=== PATIENT | female | born 1955 | race Caucasian/White ===

== ENCOUNTER 2018-11-10 16:31 | Inpatient (IN) | payer MEDICARE ==
[~2018-11-10] VITALS: Ht 157.5 cm; Wt 82.2 kg
[~2018-11-10 16:31] MED LIST: AC325T PO; ACHD5005 PO; BSC10SU PR; BUPR-45 PO; CARV12.52 PO; CHOL2000 PO; CHOL200018 PO; CYAN50003 PO; CYCL10TA9 PO; DIAZ10TA PO; DIGESTIVE ADVANTAGE PO; DIPH25TA82 PO; ENXP40I.4 SC; ESZO3TAB30 PO; FENO134C PO; FERR-57 PO; FLUT16SP22 NS; GFN600TCR PO; IBP800T PO; IRON1TAB94 PO; IRON45TA2 PO; LACT10SO63 PO; LEVO150T54 PO; LRT10T PO; LVT.025T PO; LVT.112T PO; MAGN400T6 PO; MENT71OI TP; METF1000 PO; METH4TAB PO; METO10TA3 PO; MNTL10T PO; NST15PW TOP; OMEP20CA12 PO; OMG1KC PO; ONDN4T PO; OXAP600T2 PO; OXYC-188 PO; OXYC10TA63 PO; PNT40TEC PO; PRAS1TAB2 PO; ROPI3TAB2 PO; RT-COMBINH IH; SENN1TAB76 PO; SPIR25TA3 PO; SPIR50TA27 PO; TR5C15 TOP; TRAM50TA2 PO; TRAZ150T42 PO; VITA80006 PO; VITAMIN A PO; VITAMIN B-12 PO; [UNRECOGNIZED DRUG - OTHER] PO
[2018-11-10] MEDS ORDERED: methylPREDNISolone 125 MG (Solu-MEDROL) VIAL IVP ONE (17:00)
[2018-11-10] MEDS ORDERED: NS IV 1000 ML 1,000 ML IV ONE (17:00)
[2018-11-10] MEDS ORDERED: ONDANSETRON 4 MG/2 ML (SDV) Z0FRAN IVP ONE (17:00)
[2018-11-10] MEDS ORDERED: ACETAMINOPHEN 500 MG TAB (TYLENOL) PO ONE (17:00)
[2018-11-10 17:27] LABS: BASOPHILS % (AUTO) 0 % (0-10); EOSINOPHILS % (AUTO) 0 % (0-10); HEMATOCRIT 43 % (35-52); HEMOGLOBIN 14.2 G/DL (11.5-16.0); LYMPHOCYTES # (AUTO) 0.7 X 10^3 (1.0-4.0); LYMPHOCYTES % (AUTO) 8 % (12-44); MEAN CORPUSCULAR HEMOGLOBIN 28 PG (25-34); MEAN CORPUSCULAR HGB CONC 33 G/DL (32-36); MEAN CORPUSCULAR VOLUME 85 FL (80-99); MONOCYTES # (AUTO) 0.2 X 10^3 (0.0-1.0); MONOCYTES % (AUTO) 2 % (0-12); NEUTROPHILS # (AUTO) 8.2 X 10^3 (1.8-7.8); NEUTROPHILS % (AUTO) 90 % (42-75); PLATELET COUNT 318 10^3/uL (130-400); RED CELL DISTRIBUTION WIDTH 13.7 % (10.0-14.5); WHITE BLOOD COUNT 9.2 10^3/uL (4.3-11.0)
[2018-11-10 17:28] LABS: BILIRUBIN,URINE NEGATIVE (NEGATIVE); CLARITY,URINE VERY CLOUDY; COLOR,URINE YELLOW; GLUCOSE, URINE (UA) NEGATIVE (NEGATIVE); KETONES,URINE NEGATIVE (NEGATIVE); LEUKOCYTE ESTERASE ,URINE 3+ (NEGATIVE); NITRITE,URINE NEGATIVE (NEGATIVE); PH,URINE 7 (5-9); PROTEIN,URINE 2+ (NEGATIVE); UROBILINOGEN,URINE 1 MG/DL (NORMAL)
[2018-11-10 17:38] LABS: BACTERIA,URINE MODERATE /HPF; WBC,URINE TNTC /HPF
[2018-11-10 17:39] LABS: INR 0.9 (0.8-1.4); PROTHROMBIN TIME PATIENT 12.8 SEC (12.2-14.7)
--- NOTE | 2018-11-10 17:44 | NUR ---
Pt's daughter reports texting Summer at Dr. Merino's. Summer would like pt tested for vector borne-illness and given a steroid pulse. Dr. Ferraro notified.
[2018-11-10 17:47] LABS: ALANINE AMINOTRANSFERASE 24 U/L (0-55); ALBUMIN 4.3 GM/DL (3.2-4.5); ALKALINE PHOSPHATASE 43 U/L (40-136); BILIRUBIN,TOTAL 0.7 MG/DL (0.1-1.0); BUN/CREATININE RATIO 21; CALCIUM 10.1 MG/DL (8.5-10.1); CARBON DIOXIDE 26 MMOL/L (21-32); CHLORIDE 102 MMOL/L (98-107); CREATININE SERUM 0.84 MG/DL (0.60-1.30); GFR ESTIMATED > 60; GLUCOSE 101 MG/DL (70-105); POTASSIUM 3.9 MMOL/L (3.6-5.0); SODIUM 139 MMOL/L (135-145); TOTAL PROTEIN 6.8 GM/DL (6.4-8.2)
[2018-11-10 17:52] LABS: BAND NEUTROPHILS 8 %; BASOPHILS % (MANUAL) 0 %; EOSINOPHILS % (MANUAL) 0 %; LYMPHOCYTES % (MANUAL) 7 %; MONOCYTES % (MANUAL) 1 %; NEUTROPHILS % (MANUAL) 84 %
[2018-11-10 17:53] LABS: RBC MORPH NORMAL
--- NOTE | 2018-11-10 17:53 | Diagnostic Imaging Report ---
INDICATION: Shaking and numbness. TIME OF EXAM: 5:15 p.m. COMPARISON: Prior chest of 1221/2013. EXAMINATION: Single view of the chest was obtained. FINDINGS: There is right convexity thoracic scoliotic curvature. Heart size is stable. Lungs are clear. The pulmonary vascularity is normal. No infiltrate, effusion or pneumothorax is seen. IMPRESSION: No acute cardiopulmonary process is detected. Dictated by: Dictated on workstation # [id number]
[2018-11-10] MEDS ORDERED: LEVOFLOXACIN 750 MG/150 ML IV 150 ML IV ONE (18:30)
--- NOTE | 2018-11-10 18:50 | ED General ---
General Chief Complaint: Fever-Adult/Adol Stated Complaint: SHAKING,FINGERS NUMB, Nursing Triage Note: Pt brought to ED in wheelchair by daughter. Daughter reports getting a phone call from pt at approximately 1535 and pt was tearful and shaking. Daughter picked pt up and reported was disoriented. Pt c/o nausea, back pain, dysuria. Pt had 103.1 temperature at assessment. Nursing Sepsis Screen: Possible Severe Sepsis Risk Source of Information: Patient, Family Exam Limitations: No Limitations History of Present Illness Date Seen by Provider: Nov 10, 2018 Time Seen by Provider: 16:42 Initial Comments This 63-year-old woman is brought to the emergency room by her daughter with complaints of shakiness, generalized numbness in her extremities, and altered mentation. She is found to have a temperature of 103.1 on arrival. Patient has multiple health history problems including history of Guillain-Maynard, asthma, hypothyroidism, and adrenal insufficiency. Allergies and Home Medications Allergies Coded Allergies: diethyltoluamide (Unverified Allergy, Intermediate, RASH, HIVES, RESPIRATORY, 09/14/10) RESCUE INHALER GOT PT TO HOSPITAL, BUT STATES IT WAS LIKE A BAD ASTHMA ATTACK Form.,Urea Cycle Disord (Unverified Allergy, Mild, RASH, 09/14/10) adhesive tape (Unverified Allergy, Mild, RASH, 09/14/10) erythromycin base (Unverified Allergy, Mild, RASH, 09/14/10) tetracycline (Unverified Allergy, Mild, 04/29/14) cefaclor (Verified Allergy, Unknown, 02/28/09) iodine (Verified Allergy, Unknown, 02/28/09) Uncoded Allergies: METAL (Adverse Reaction, Mild, RASH, 09/14/10) Home Medications Bupropion Hcl 150 Mg Tablet.sa, 150 MG PO DAILY, (Reported) Carvedilol 12.5 Mg Tablet, 25 MG PO BID, (Reported) Cholecalciferol (Vitamin D3) 2,000 Unit Capsule, 2,500 UNITS PO DAILY, (Reported) Cyanocobalamin (Vitamin B-12) 5,000 Mcg Tab.rapdis, 1,000 MCG PO DAILY, (Reported) Cyclobenzaprine Hcl 10 Mg Tablet, 10 MG PO HS PRN, (Reported) Diazepam 10 Mg Tablet, 10 MG PO HS, (Reported) Fenofibrate,Micronized 134 Mg Capsule, 134 MG PO DAILY, (Reported) Fluticasone Propionate 16 Gm Naspr, 1 SPRAY NS DAILY PRN, (Reported) Hydrocodone Bit/Acetaminophen 1 Each Tablet, 1-2 EACH PO Q4H PRN, (Reported) Ibuprofen 800 Mg Tab, 800 MG PO BID, (Reported) Ipratropium/Albuterol Sulfate 14.7 Gm Aer.w.adap, 2 PUFF IH Q6HR PRN, (Reported) Iron &Iron Asp Gly/Fa/Mv,Min38 1 Each Tablet, 65 MG PO DAILY, (Reported) Levothyroxine Sodium 112 Mcg Tablet, 112 MG PO DAILY, (Reported) Loratadine 10 Mg Tab, 10 MG PO DAILY, (Reported) Methylprednisolone 4 Mg Tab.ds.pk, 4 MG PO DAILY, (Reported) Montelukast Sodium 10 Mg Tablet, 10 MG PO DAILY, (Reported) Omeprazole 20 Mg Capsule.dr, 20 MG PO DAILY, (Reported) Ondansetron Hcl 4 Mg Tab, 4 MG PO Q6H PRN, (Reported) Oxycodone Hcl/Acetaminophen 1 Each Tablet, 1-2 TAB PO Q6H PRN, (Reported) Prasterone (Dhea)/Calcium Carb 1 Each Tablet, 50 MG PO DAILY, (Reported) Ropinirole Hcl 3 Mg Tablet, 3 MG PO HS, (Reported) Spironolactone 25 Mg Tablet, 25 MG PO DAILY, (Reported) Tramadol Hcl 50 Mg Tablet, 100 MG PO BID, (Reported) Trazodone Hcl 150 Mg Tablet, 150 MG PO HS, (Reported) Vitamin A 8,000 Unit Capsule, 8,000 UNIT PO DAILY, (Reported) [Digestive Advantage] , 1 TAB PO DAILY, (Reported) [quinacrine hcl] , 100 MG PO DAILY, (Reported) Past Yarwcph-Tahfcr-Hqnflm Hx Patient Social History Alcohol Use: Denies Use Recreational Drug Use: No Smoking Status: Former Smoker Type Used: Cigarettes 2nd Hand Smoke Exposure: No Recent Foreign Travel: No Contact w/Someone Who Travel: No Recent Infectious Disease Expo: No Recent Hopitalizations: Yes Immunizations Up To Date Date of Pneumonia Vaccine: Jan 24, 2009 Date of Influenza Vaccine: Feb 19, 2010 Seasonal Allergies Seasonal Allergies: No Past Medical History Surgeries: Yes (carpal tunnel, trigger finger, r torn meniscus, plantar fasciotomy, ) Respiratory: Yes Asthma Cardiac: Yes Neurological: Yes (guillian barre) Reproductive Disorders: No Female Reproductive Disorders: Denies Sexually Transmitted Disease: No Gastrointestinal: Yes Gastroesophageal Reflux, Gall Bladder Disease, Irritable Bowel Musculoskeletal: Yes (osteo and rheumatoid) Arthritis, Fibromyalgia, Rheumatoid Arthritis Endocrine: Yes (adrenal fatigue, pituitary dysfunction) Hypothyroidsim Loss of Vision: Denies Hearing Impairment: Denies Cancer: No Psychosocial: No Integumentary: Yes Eczema Blood Disorders: No Physical Exam-Suspected Sepsis Physical Exam Vital Signs Vital Signs - First Documented 11/10/18 16:34 Temp 103.1 Pulse 95 Resp 13 B/P (MAP) 115/61 (79) Pulse Ox 94 O2 Delivery Room Air Capillary Refill : Less Than 3 Seconds Blood Pressure Mean: 79 Height, Weight, BMI Height: 5'2.00" Weight: 180lbs. 4.0oz. 81.273969ga; BMI Method:Stated Focused Exam Lactate Level 11/10/18 16:59: Lactic Acid Level 2.45*H Lactic Acid Level Laboratory Tests Test 11/10/18 16:59 Lactic Acid Level 2.45 MMOL/L (0.50-2.00) *H Progress/Results/Core Measures Suspected Sepsis Recent Fever Within 48 Hours: Yes Infection Criteria Present: Suspected New Infection New/Unexplained Altered Menta: Yes Sepsis Screen: Possible Severe Sepsis Risk SIRS Temperature:103.1 Pulse: 95 Respiratory Rate: 13 Laboratory Tests 11/10/18 16:59: White Blood Count 9.2 Blood Pressure 115 /61 Mean: 79 11/10/18 16:59: Lactic Acid Level 2.45*H Laboratory Tests 11/10/18 16:59: Creatinine 0.84, INR Comment 0.9, Platelet Count 318, Total Bilirubin 0.7 Results/Orders Lab Results Laboratory Tests Test 11/10/18 16:35 11/10/18 16:59 Range/Units Urine Color YELLOW Urine Clarity VERY CLOUDY H Urine pH 7 5-9 Urine Specific [place] 1.010 L 1.016-1.022 Urine Protein 2+ H NEGATIVE Urine Glucose (UA) NEGATIVE NEGATIVE Urine Ketones NEGATIVE NEGATIVE Urine Nitrite NEGATIVE NEGATIVE Urine Bilirubin NEGATIVE NEGATIVE Urine Urobilinogen 1 NORMAL MG/DL Urine Leukocyte Esterase 3+ H NEGATIVE Urine RBC (Auto) 5+ H NEGATIVE Urine RBC 10-25 H /HPF Urine WBC TNTC H /HPF Urine Squamous Epithelial Cells NONE /HPF Urine Crystals NONE /LPF Urine Bacteria MODERATE H /HPF Urine Casts NONE /LPF Urine Mucus NEGATIVE /LPF Urine Culture Indicated CULTURE PENDING White Blood Count 9.2 4.3-11.0 10^3/uL Red Blood Count 5.10 4.35-5.85 10^6/uL Hemoglobin 14.2 11.5-16.0 G/DL Hematocrit 43 35-52 % Mean Corpuscular Volume 85 80-99 FL Mean Corpuscular Hemoglobin 28 25-34 PG Mean Corpuscular Hemoglobin Concent 33 32-36 G/DL Red Cell Distribution Width 13.7 10.0-14.5 % Platelet Count 318 130-400 10^3/uL Mean Platelet Volume 10.0 7.4-10.4 FL Neutrophils (%) (Auto) 90 H 42-75 % Lymphocytes (%) (Auto) 8 L 12-44 % Monocytes (%) (Auto) 2 0-12 % Eosinophils (%) (Auto) 0 0-10 % Basophils (%) (Auto) 0 0-10 % Neutrophils # (Auto) 8.2 H 1.8-7.8 X 10^3 Lymphocytes # (Auto) 0.7 L 1.0-4.0 X 10^3 Monocytes # (Auto) 0.2 0.0-1.0 X 10^3 Eosinophils # (Auto) 0.0 0.0-0.3 10^3/uL Basophils # (Auto) 0.0 0.0-0.1 10^3/uL Neutrophils % (Manual) 84 % Lymphocytes % (Manual) 7 % Monocytes % (Manual) 1 % Eosinophils % (Manual) 0 % Basophils % (Manual) 0 % Band Neutrophils 8 % Blood Morphology Comment NORMAL Prothrombin Time 12.8 12.2-14.7 SEC INR Comment 0.9 0.8-1.4 Activated Partial Thromboplast Time 26 24-35 SEC Sodium Level 139 135-145 MMOL/L Potassium Level 3.9 3.6-5.0 MMOL/L Chloride Level 102 98-107 MMOL/L Carbon Dioxide Level 26 21-32 MMOL/L Anion Gap 11 5-14 MMOL/L Blood Urea Nitrogen 18 7-18 MG/DL Creatinine 0.84 0.60-1.30 MG/DL Estimat Glomerular Filtration Rate > 60 BUN/Creatinine Ratio 21 Glucose Level 101 70-105 MG/DL Lactic Acid Level 2.45 *H 0.50-2.00 MMOL/L Calcium Level 10.1 8.5-10.1 MG/DL Corrected Calcium 9.9 8.5-10.1 MG/DL Total Bilirubin 0.7 0.1-1.0 MG/DL Aspartate Amino Transf (AST/SGOT) 29 5-34 U/L Alanine Aminotransferase (ALT/SGPT) 24 0-55 U/L Alkaline Phosphatase 43 40-136 U/L Total Protein 6.8 6.4-8.2 GM/DL Albumin 4.3 3.2-4.5 GM/DL My Orders Orders - RAKAN GREEN MD Methylprednisolone Sod Succ (Solu-Medrol (11/10/18 17:00) Acetaminophen Tablet (Tylenol Tablet) (11/10/18 17:00) Ns Iv 1000 Ml (Sodium Chloride 0.9%) (11/10/18 17:00) Ondansetron Injection (Zofran Injectio (11/10/18 17:00) Cbc With Automated Diff (11/10/18 17:00) Comprehensive Metabolic Panel (11/10/18 17:00) Blood Culture (11/10/18 17:00) Sputum Culture (11/10/18 17:00) Urinalysis (11/10/18 17:00) Urine Culture (11/10/18 17:00) Protime With Inr (11/10/18 17:00) Partial Thromboplastin Time (11/10/18 17:00) Chest 1 View, Ap/Pa Only (11/10/18 17:00) Ed Iv/Invasive Line Start (11/10/18 17:00) Ed Iv/Invasive Line Start (11/10/18 17:00) Vital Signs Adult Sepsis Patie Q15M (11/10/18 17:00) O2 (11/10/18 17:00) Remove Rings In Anticipation O (11/10/18 17:00) Lactic Acid Analyzer (11/10/18 17:00) Manual Differential (11/10/18 16:59) Levofloxacin 750 Mg/150 Ml Iv (Levaquin (11/10/18 18:30) Medications Given in ED Current Medications Medications Dose Ordered Sig/Niyah Route Start Time Stop Time Status Last Admin Dose Admin Acetaminophen 1,000 mg ONCE ONCE PO 11/10/18 17:00 11/10/18 17:03 DC 11/10/18 17:24 1,000 MG Methylprednisolone Sodium Succinate 125 mg ONCE ONCE IVP 11/10/18 17:00 11/10/18 17:03 DC 11/10/18 17:22 125 MG Ondansetron HCl 8 mg ONCE ONCE IVP 11/10/18 17:00 11/10/18 17:03 DC 11/10/18 17:20 8 MG Sodium Chloride 1,000 ml @ 0 mls/hr Q0M ONCE IV 11/10/18 17:00 11/10/18 17:03 DC 11/10/18 17:21 1,000 MLS/HR Vital Signs/I&O 11/10/18 16:34 Temp 103.1 Pulse 95 Resp 13 B/P (MAP) 115/61 (79) Pulse Ox 94 O2 Delivery Room Air Capillary Refill : Less Than 3 Seconds Blood Pressure Mean: 79 Diagnostic Imaging Diagonstic Imaging: Xray Plain Films/CT/US/NM/MRI: chest Comments NAME: BÁRBARA BRENNAN MED REC#: [id number] PT STATUS: REG ER : 1955 PHYSICIAN: RAKAN GREEN MD ADMIT DATE: 11/10/18/ER Draft Date of Exam:11/10/18 CHEST 1 VIEW, AP/PA ONLY INDICATION: Shaking and numbness. TIME OF EXAM: 5:15 p.m. COMPARISON: Prior chest of 122/2013. EXAMINATION: Single view of the chest was obtained. FINDINGS: There is right convexity thoracic scoliotic curvature. Heart size is stable. Lungs are clear. The pulmonary vascularity is normal. No infiltrate, effusion or pneumothorax is seen. IMPRESSION: No acute cardiopulmonary process is detected. Dictated on workstation # [id number] Dict: 11/10/181739 Trans: 11/10/181751 [facility] [id number] Interpreted by: NAT FINNEGAN MD Departure Communication (Admissions) Time/Spoke to Admitting Phy: 18:26 Dr. Catherine Impression Primary Impression: Sepsis Qualified Codes: A41.9 - Sepsis, unspecified organism Additional Impression: Urinary tract infection Qualified Codes: N39.0 - Urinary tract infection, site not specified Disposition: ADMITTED INPATIENT Condition: Improved Departure-Patient Inst. Referrals: DEVON PHAN DO (PCP/Family) Primary Care Physician RAKAN GREEN MD Nov 10, 2018 18:50
--- NOTE | 2018-11-10 19:10 | NUR ---
report given to NAYELI Kilgore
--- NOTE | 2018-11-10 19:30 | NUR ---
"BÁRBARA BRENNAN admitted to room 409-1, with an admitting diagnosis of UTI | SEPSIS, on 11/10/18 from ED via , accompanied by ED STAFF.BÁRBARA BRENNAN introduced to surroundings, call light, bed controls, phone, TV, temperature control, lights, meal times, smoking policy, visitor policy, side rail policy, bathrooms and showers. Patient Rights given to patient in the handbook.BÁRBARA BRENNAN verbalizes understanding that [facility] is not responsible for the loss or damage to any personal effects or valuables that are kept in the patients posession during their hospitalization."
[2018-11-10 19:38] VITALS: BP 111/73
[2018-11-10 19:45] VITALS: BP 111/73
[2018-11-10] MEDS ORDERED: ONDANSETRON 4 MG/2 ML (SDV) Z0FRAN IV PRN (20:00)
[2018-11-10] MEDS ORDERED: IBUPROFEN 600 MG (MOTRIN) TAB PO PRN (20:15)
[2018-11-10] MEDS ORDERED: ACETAMINOPHEN 500 MG TAB (TYLENOL) PO PRN (20:15)
[2018-11-10] MEDS: NS IV 1000 ML 1,000 ML IV SCH (21:16)
[2018-11-10] MEDS ORDERED: GABAPENTIN 300 MG (NEURONTIN) CAP PO ONE (23:15)
[2018-11-10] MEDS ORDERED: GABAPENTIN 300 MG (NEURONTIN) CAP ONE (23:23)
[2018-11-10 23:51] VITALS: BP 121/73
[2018-11-11 03:46] VITALS: BP 123/79
[2018-11-11] MEDS: NS IV 1000 ML 1,000 ML IV SCH ×3 (05:47→23:27)
[2018-11-11 06:25] LABS: BASOPHILS % (AUTO) 0 % (0-10); EOSINOPHILS % (AUTO) 0 % (0-10); HEMATOCRIT 39 % (35-52); HEMOGLOBIN 12.5 G/DL (11.5-16.0); LYMPHOCYTES # (AUTO) 0.8 X 10^3 (1.0-4.0); LYMPHOCYTES % (AUTO) 6 % (12-44); MEAN CORPUSCULAR HEMOGLOBIN 28 PG (25-34); MEAN CORPUSCULAR HGB CONC 32 G/DL (32-36); MEAN CORPUSCULAR VOLUME 86 FL (80-99); MEAN PLATELET VOLUME 10.2 FL (7.4-10.4); MONOCYTES # (AUTO) 0.8 X 10^3 (0.0-1.0); MONOCYTES % (AUTO) 5 % (0-12); NEUTROPHILS # (AUTO) 13.1 X 10^3 (1.8-7.8); NEUTROPHILS % (AUTO) 89 % (42-75); PLATELET COUNT 255 10^3/uL (130-400); RED CELL DISTRIBUTION WIDTH 13.2 % (10.0-14.5); WHITE BLOOD COUNT 14.7 10^3/uL (4.3-11.0)
[2018-11-11 06:44] LABS: ALANINE AMINOTRANSFERASE 24 U/L (0-55); ALBUMIN 3.6 GM/DL (3.2-4.5); ALKALINE PHOSPHATASE 37 U/L (40-136); BILIRUBIN,TOTAL 0.3 MG/DL (0.1-1.0); BUN/CREATININE RATIO 18; CALCIUM 9.1 MG/DL (8.5-10.1); CARBON DIOXIDE 24 MMOL/L (21-32); CHLORIDE 108 MMOL/L (98-107); CREATININE SERUM 0.72 MG/DL (0.60-1.30); GFR ESTIMATED > 60; GLUCOSE 139 MG/DL (70-105); SODIUM 142 MMOL/L (135-145); TOTAL PROTEIN 5.7 GM/DL (6.4-8.2)
[2018-11-11] MEDS ORDERED: CHOL200012 PO (07:43)
[2018-11-11] MEDS ORDERED: ROPI3TAB4 PO (07:43)
[2018-11-11] MEDS ORDERED: LORA10TA7 PO (07:43)
[2018-11-11] MEDS ORDERED: SPIR25TA PO (07:43)
[2018-11-11] MEDS ORDERED: FENO145T37 PO (07:43)
[2018-11-11] MEDS ORDERED: VITA80006 PO (07:43)
[2018-11-11] MEDS ORDERED: OMEP20CA12 PO (07:43)
[2018-11-11] MEDS ORDERED: LEVO125T6 PO (07:43)
[2018-11-11] MEDS ORDERED: PRAS1TAB2 PO (07:43)
[2018-11-11] MEDS ORDERED: IBUP-1780 PO (07:43)
[2018-11-11] MEDS ORDERED: TRAM50TA2 PO (07:43)
[2018-11-11] MEDS ORDERED: FERR-65 PO (07:43)
[2018-11-11] MEDS ORDERED: DIAZ5TAB3 PO (07:43)
[2018-11-11] MEDS ORDERED: MONT10TA24 PO (07:43)
[2018-11-11] MEDS ORDERED: CARV12.53 PO (07:43)
[2018-11-11] MEDS ORDERED: TRAZ150T72 PO (07:43)
[2018-11-11] MEDS ORDERED: CYAN10006 PO (07:43)
[2018-11-11] MEDS ORDERED: BUPR150T14 PO (07:43)
[2018-11-11] MEDS ORDERED: LEVO5TAB12 PO (07:48)
[2018-11-11] MEDS ORDERED: GABA-488 PO (07:48)
[2018-11-11] MEDS ORDERED: BUSP10TA95 PO (07:48)
[2018-11-11] MEDS ORDERED: FLUC100T6 PO (07:48)
[2018-11-11 08:00] VITALS: BP 108/70
[2018-11-11] MEDS ORDERED: METH4TAB11 PO (08:37)
[2018-11-11] MEDS ORDERED: ARMO200T4 PO (08:37)
[2018-11-11] MEDS ORDERED: FLUT16SP22 NS (08:51)
[2018-11-11] MEDS ORDERED: OMEG100032 PO ×2 (08:51)
[2018-11-11] MEDS ORDERED: QUINACRINE PO (08:51)
[2018-11-11] MEDS ORDERED: LIRA0.6P SQ (08:51)
[2018-11-11] MEDS ORDERED: IPRA4AER IH (08:51)
[2018-11-11] MEDS ORDERED: CYCL10TA9 PO (08:53)
[2018-11-11] MEDS ORDERED: NF-METHYLP PO (08:56)
--- NOTE | 2018-11-11 09:20 | NUR ---
SPOKE WITH PATIENT WELL GOING OVER THE EXTERNAL MED HISTORY TO COMPLETE THE MED REC. 09-26-2018 QUINACRINE 100MG WAS COMPOUNDED AT [facility] MEDROL 4MG- TAKES 1 T D, AND ALSO TAKES 1 PRN COMBIVENT- 2 PUFFS PRN CARVEDILOL 12.5MG- TAKE 1/2 (6.25MG) BID VICTOZA INJECTS 0.6MG ONCE D AND GETS A SAMPLE FROM DR. ROME OFFICE PATIENT STATES SHE TAKES OXYCODONE 05-325 PRN, BUT I CALLED ALL HER PHARMACIES AND THE LAST FILL DATE FROM [facility] WAS JUN 2015. I THEN CALLED DR. ROME OFFICE TO SEE THEY GAVE HER AN RX FOR IT- THEY COULD NOT FIND ANYTHING. OTC MEDICATIONS: VITAMIN D3 -1 DAILY VITAMIN B12- BID VITAMIN A-1 DAILY FLONASE PRN FISH OIL 1200MG- 3AM AND 2HS
[2018-11-11] MEDS ORDERED: OMEG-109 PO ×2 (09:32)
--- NOTE | 2018-11-11 09:40 | History & Physical-Hospitalist ---
History of Present Illness HPI/Chief Complaint Pt is a 63yoCF with a PMH of Guillian [place] syndrome, fibromyalgia, adrenal fatigue, asthma who presented to the ER due to confusion, fever, and shakiness. She states she has had dysuria, frequency, and itching for the last couple of weeks and then went camping where she did not drink much water. She is on chronic steroids as well. Yesterday she developed severe rigors and called her daughter who brought her to the ER for evaluation where she was found to have a UTI and meet severe sepsis criteria and was admitted for antibiotics. Source: patient Date Seen 11/11/18 Time Seen by a Provider: 09:35 Attending Physician Gilbert Catherine MD PCP Ronni Merino DO Referring Physician Date of Admission Nov 10, 2018 at 6:43 pm Home Medications & Allergies Home Medications Reviewed patient Home Medication Reconciliation performed by pharmacy medication reconciliations solar installer technician and/or nursing. Patients Allergies have been reviewed. Allergies Allergies Coded Allergies diethyltoluamide (Unverified Allergy, Intermediate, RASH, HIVES, RESPIRATORY, 09/14/10) RESCUE INHALER GOT PT TO HOSPITAL, BUT STATES IT WAS LIKE A BAD ASTHMA ATTACK Form.,Urea Cycle Disord (Unverified Allergy, Mild, RASH, 09/14/10) adhesive tape (Unverified Allergy, Mild, RASH, 09/14/10) erythromycin base (Unverified Allergy, Mild, RASH, 09/14/10) tetracycline (Unverified Allergy, Mild, 04/29/14) cefaclor (Verified Allergy, Unknown, 02/28/09) iodine (Verified Allergy, Unknown, 02/28/09) Uncoded Allergies METAL ( Adverse Reaction, Mild, RASH, 09/14/10) Past Nubftmr-Mzkkoe-Tmtbqs Hx Past Med/Social Hx: Reviewed Nursing Past Med/Soc Hx Patient Social History Marrital Status: Alcohol Use: Denies Use Recreational Drug Use: No Smoking Status: Former Smoker Type Used: Cigarettes 2nd Hand Smoke Exposure: No Physical Abuse Screen: No Sexual Abuse: No Recent Foreign Travel: No Contact w/other who traveled: No Recent Hopitalizations: Yes Recent Infectious Disease Expo: No Immunizations Up To Date Date of Pneumonia Vaccine: Jan 24, 2009 Date of Influenza Vaccine: Feb 19, 2010 Seasonal Allergies Seasonal Allergies: No Past Medical History Surgeries: Gallbladder, Hysterectomy, Orthopedic, Tubal Ligation Respiratory: Asthma Cardiac: Hypertension guillain-wolf syndrome Reproductive: No Sexually Transmitted Disease: No Female Reproductive Disorders: Denies Gastrointestinal: Gastroesophageal Reflux, Gall Bladder Disease, Irritable Bowel Musculoskeletal: Arthritis, Fibromyalgia, Rheumatoid Arthritis Endocrine: Hypothyroidsim Loss of Vision: Denies Hearing Impairment: Denies Skin/Integumentary: Eczema History of Blood Disorders: No Review of Systems Constitutional: chills, fever EENTM: no symptoms reported Respiratory: no symptoms reported Cardiovascular: no symptoms reported Gastrointestinal: constipation (chronic) Genitourinary: see HPI, dysuria, frequency Musculoskeletal: no symptoms reported Skin: no symptoms reported Psychiatric/Neurological: No Symptoms Reported Physical Exam Physical Exam Vital Signs Vital Signs - First Documented 11/10/18 16:34 Temp 103.1 Pulse 95 Resp 13 B/P (MAP) 115/61 (79) Pulse Ox 94 O2 Delivery Room Air Capillary Refill : Less Than 3 Seconds Height, Weight, BMI Height: 5'2.00" Weight: 181lbs. 4.0oz. 82.898837wu; BMI Method:Stated General Appearance: No Apparent Distress, WD/WN HEENT: Moist Mucous Membranes; No Scleral Icterus (L), No Scleral Icterus (R) Respiratory: Lungs Clear, No Accessory Muscle Use, No Respiratory Distress Cardiovascular: Regular Rate, Rhythm, Systolic Murmur Gastrointestinal: Normal Bowel Sounds, Non Tender, Soft Extremity: Normal Capillary Refill, No Calf Tenderness, No Pedal Edema Neurologic/Psychiatric: Alert, Oriented x3, Normal Mood/Affect Skin: Normal Color, Warm/Dry Results Results/Procedures Labs Laboratory Tests 11/10/18 16:59 11/11/18 05:35 Patient resulted labs reviewed. Imaging: Reviewed Imaging Report Imaging Date of Exam: 11/10/18 CHEST 1 VIEW, AP/PA ONLY INDICATION: Shaking and numbness. TIME OF EXAM: 5:15 p.m. [place] [address]/2013. EXAMINATION: Single view of the chest was obtained. FINDINGS: There is right convexity thoracic scoliotic curvature. Heart size is stable. Lungs are clear. The pulmonary vascularity is normal. No infiltrate, effusion or pneumothorax is seen. IMPRESSION: No acute cardiopulmonary process is detected. Assessment/Plan Admission Diagnosis Severe Sepsis Admission Status: Inpatient Order (span 2 midnights) Reason for Inpatient Admission: IV abx Diagnosis/Problems Diagnosis/Problems (1) Sepsis Status: Acute Assessment & Plan: UTI as source Febrile with tachycardia Continue abx await cultures Qualifiers: Sepsis type: sepsis due to unspecified organism Qualified Codes: A41.9 - Sepsis, unspecified organism (2) UTI (urinary tract infection) Assessment & Plan: Continue abx as above Await culture results Qualifiers: Urinary tract infection type: acute cystitis Hematuria presence: with hematuria Qualified Codes: N30.01 - Acute cystitis with hematuria (3) Essential (primary) hypertension Status: Chronic Assessment & Plan: well controlled hold home meds for now (4) Hypothyroidism Status: Chronic Assessment & Plan: resume home meds Qualifiers: Hypothyroidism type: unspecified Qualified Codes: E03.9 - Hypothyroidism, unspecified (5) Adrenal insufficiency Assessment & Plan: on chronic steroids Stress dosed in ER Continue home dose Clinical Quality Measures DVT/VTE Risk/Contraindication: Risk Factor Score Per Nursin RFS Level Per Nursing on Admit: 2=Moderate GILBERT CATHERINE MD Nov 11, 2018 9:40 am
[2018-11-11] MEDS ORDERED: IBUPROFEN 800 MG (MOTRIN) TAB PO PRN (10:00)
[2018-11-11] MEDS ORDERED: CYCLOBENZAPRINE 10 MG (FLEXERIL) TAB PO PRN (10:00)
[2018-11-11] MEDS: GABAPENTIN 300 MG (NEURONTIN) CAP PO SCH ×2 (10:14→21:24)
[2018-11-11] MEDS ORDERED: DIAZEPAM 5 MG (VALIUM) TABLET PO PRN (10:15)
[2018-11-11] MEDS: predniSONE 5 MG TAB PO SCH (10:51)
[2018-11-11] MEDS: PANTOPRAZOLE 20 MG TABLET (PROTONIX) PO SCH (10:51)
[2018-11-11] MEDS: MONTELUKAST 10 MG (SINGULAIR) TAB PO SCH (10:51)
[2018-11-11] MEDS: fluCOnazole (DIFLUCAN) 100 MG TAB PO SCH (10:51)
[2018-11-11] MEDS: LEVOTHYROXINE 125 MCG (LEVOTHROID) TABLET PO SCH (10:51)
[2018-11-11] MEDS: busPIRone 10 MG (BUSPAR) TAB PO SCH ×2 (10:51→21:24)
[2018-11-11] MEDS ORDERED: IPRATROPIUM IH PRN (11:00)
[2018-11-11] MEDS ORDERED: [UNRECOGNIZED DRUG - OTHER] IH PRN (11:00)
[2018-11-11] MEDS ORDERED: ALBUTEROL IH PRN (11:00)
[2018-11-11] MEDS ORDERED: PATIENT MAY USE OWN MEDS, ALL MC SCH (11:30)
[2018-11-11 12:00] VITALS: BP 106/66
[2018-11-11] MEDS ORDERED: RT-ALBUTEROL/IPRATROPIUM 3 ML (DUONEB) VIAL IH PRN (13:15)
--- NOTE | 2018-11-11 13:27 | NUR ---
Initial visit with pt and her . Pt is affiliated with the [employer]. Engaged in rapport building and active listening. The pt describes positive and supportive relationships with her children and siblings.
[2018-11-11 16:10] VITALS: BP 145/77
[2018-11-11] MEDS: LEVOFLOXACIN 750 MG/150 ML IV 150 ML IV SCH (18:08)
[2018-11-11 20:04] VITALS: BP 106/67
[2018-11-11] MEDS: FENOFIBRATE 134 MG (LOFIBRA) CAPSULE PO SCH (21:24)
[2018-11-11] MEDS: rOPINIRole 1 MG (REQUIP) TABLET PO SCH (21:24)
[2018-11-11] MEDS: traZODone 150 MG (DESYREL) TABLET PO SCH (21:24)
[2018-11-11 23:45] VITALS: BP 111/65
[2018-11-12 03:45] VITALS: BP 91/60
[2018-11-12 05:36] LABS: BASOPHILS % (AUTO) 0 % (0-10); EOSINOPHILS % (AUTO) 0 % (0-10); HEMATOCRIT 35 % (35-52); HEMOGLOBIN 11.2 G/DL (11.5-16.0); LYMPHOCYTES % (AUTO) 21 % (12-44); MEAN CORPUSCULAR HEMOGLOBIN 28 PG (25-34); MEAN CORPUSCULAR HGB CONC 32 G/DL (32-36); MEAN CORPUSCULAR VOLUME 86 FL (80-99); MEAN PLATELET VOLUME 9.8 FL (7.4-10.4); MONOCYTES # (AUTO) 1.1 X 10^3 (0.0-1.0); MONOCYTES % (AUTO) 12 % (0-12); NEUTROPHILS # (AUTO) 6.4 X 10^3 (1.8-7.8); NEUTROPHILS % (AUTO) 67 % (42-75); PLATELET COUNT 249 10^3/uL (130-400); RED CELL DISTRIBUTION WIDTH 13.4 % (10.0-14.5); WHITE BLOOD COUNT 9.6 10^3/uL (4.3-11.0)
[2018-11-12 05:50] LABS: BUN/CREATININE RATIO 13; CALCIUM 8.5 MG/DL (8.5-10.1); CARBON DIOXIDE 25 MMOL/L (21-32); CHLORIDE 110 MMOL/L (98-107); GFR ESTIMATED > 60; GLUCOSE 93 MG/DL (70-105); SODIUM 142 MMOL/L (135-145)
[2018-11-12] MEDS: predniSONE 5 MG TAB PO SCH (06:09)
[2018-11-12] MEDS: NS IV 1000 ML 1,000 ML IV SCH ×3 (06:09→16:11)
[2018-11-12] MEDS ORDERED: predniSONE 5 MG TAB PO SCH (07:00)
[2018-11-12 08:56] VITALS: BP 116/66
[2018-11-12] MEDS ORDERED: LEVOCETIRIZINE 5 MG TAB (XYZAL) NON-FORMULARY PO SCH (09:00)
[2018-11-12] MEDS ORDERED: NON-FORMULARY MEDICATION 1 EA EA (Liraglutide (Victoza 2-Pak) 0.6 MG) SQ SCH (09:00)
[2018-11-12] MEDS ORDERED: LEVOTHYROXINE 125 MCG (LEVOTHROID) TABLET PO SCH (09:00)
[2018-11-12] MEDS ORDERED: MONTELUKAST 10 MG (SINGULAIR) TAB PO SCH (09:00)
[2018-11-12] MEDS ORDERED: fluCOnazole (DIFLUCAN) 100 MG TAB PO SCH (09:00)
[2018-11-12] MEDS ORDERED: NON-FORMULARY MEDICATION 1 EA EA (Fenofibrate Nanocrystallized (Fenofibrate) 145 MG) PO SCH (09:00)
[2018-11-12] MEDS ORDERED: PANTOPRAZOLE 20 MG TABLET (PROTONIX) PO SCH (09:00)
--- NOTE | 2018-11-12 09:13 | Progress Note-Hospitalist ---
Subjective HPI/CC On Admission Date Seen by Provider: Nov 12, 2018 Time Seen by Provider: 09:08 Pt is a 63yoCF with a PMH of Guillian [place] syndrome, fibromyalgia, adrenal fatigue, asthma who presented to the ER due to confusion, fever, and shakiness. She states she has had dysuria, frequency, and itching for the last couple of weeks and then went camping where she did not drink much water. She is on chronic steroids as well. Yesterday she developed severe rigors and called her daughter who brought her to the ER for evaluation where she was found to have a UTI and meet severe sepsis criteria and was admitted for antibiotics. Subjective/Events-last exam Pt reports feeling better today. Slept better. No other complaints or concerns. Focused Exam Lactate Level 11/10/18 16:57: Lactic Acid Level 0.96 11/10/18 16:59: Lactic Acid Level 2.45*H Objective Exam Vital Signs Vital Signs Date Time Temp Pulse Resp B/P (MAP) Pulse Ox O2 Delivery O2 Flow Rate FiO2 11/12/18 08:56 97.2 63 19 116/66 (83) 98 Room Air 0.00 Capillary Refill : Less Than 3 Seconds General Appearance: No Apparent Distress, WD/WN Respiratory: Lungs Clear, No Accessory Muscle Use, No Respiratory Distress Cardiovascular: Regular Rate, Rhythm, Systolic Murmur Gastrointestinal: Normal Bowel Sounds, Non Tender, Soft Neurologic/Psychiatric: Alert, Oriented x3, Normal Mood/Affect Results/Procedures Lab Laboratory Tests 11/12/18 05:15 Patient resulted labs reviewed. Imaging: Reviewed Imaging Report Assessment/Plan Assessment and Plan Assess & Plan/Chief Complaint Severe Sepsis Diagnosis/Problems Diagnosis/Problems (1) Sepsis Status: Acute Assessment & Plan: UTI as source e. coli on culture, await sensitivites Febrile with tachycardia Continue Levaquin Qualifiers: Sepsis type: sepsis due to unspecified organism Qualified Codes: A41.9 - Sepsis, unspecified organism (2) UTI (urinary tract infection) Assessment & Plan: Continue abx as above Await sensitivities Qualifiers: Urinary tract infection type: acute cystitis Hematuria presence: with hematuria Qualified Codes: N30.01 - Acute cystitis with hematuria (3) Essential (primary) hypertension Status: Chronic Assessment & Plan: well controlled hold home meds for now (4) Hypothyroidism Status: Chronic Assessment & Plan: resume home meds Qualifiers: Hypothyroidism type: unspecified Qualified Codes: E03.9 - Hypothyroidism, unspecified (5) Adrenal insufficiency Assessment & Plan: on chronic steroids Stress dosed in ER Continue home dose Given hypotension this AM without home antihypertensives will continue stress dose Solu medrol ordered Clinical Quality Measures DVT/VTE Risk/Contraindication: Risk Factor Score Per Nursin RFS Level Per Nursing on Admit: 2=Moderate GILBERT RIVERA MD Nov 12, 2018 9:13 am
[2018-11-12] MEDS ORDERED: methylPREDNISolone 40 MG/ML (Solu-MEDROL) VIAL IV NR (09:15)
[2018-11-12] MEDS: fluCOnazole (DIFLUCAN) 100 MG TAB PO SCH (09:16)
[2018-11-12] MEDS: GABAPENTIN 300 MG (NEURONTIN) CAP PO SCH ×3 (09:16→20:57)
[2018-11-12] MEDS: LORATADINE (CLARITIN) 10 MG TAB PO SCH (09:16)
[2018-11-12] MEDS: busPIRone 10 MG (BUSPAR) TAB PO SCH ×2 (09:16→20:57)
[2018-11-12] MEDS: PANTOPRAZOLE 20 MG TABLET (PROTONIX) PO SCH (09:16)
[2018-11-12] MEDS: buPROPion SR 150 MG (WELLBUTRIN SR) TAB PO SCH (09:17)
[2018-11-12] MEDS: LEVOTHYROXINE 125 MCG (LEVOTHROID) TABLET PO SCH (09:17)
[2018-11-12] MEDS: MONTELUKAST 10 MG (SINGULAIR) TAB PO SCH (09:17)
[2018-11-12] MEDS: ARMODAFINIL PO SCH (10:08)
[2018-11-12] MEDS: LACTOBACILLUS ACIDOPHILUS (PROBIOTIC) CAPSULE PO SCH ×2 (12:41→16:12)
[2018-11-12 16:16] VITALS: BP 147/75
[2018-11-12] MEDS: LEVOFLOXACIN 750 MG/150 ML IV 150 ML IV SCH (18:36)
[2018-11-12] MEDS: traZODone 150 MG (DESYREL) TABLET PO SCH (20:57)
[2018-11-12] MEDS: rOPINIRole 1 MG (REQUIP) TABLET PO SCH (20:57)
[2018-11-12] MEDS: FENOFIBRATE 134 MG (LOFIBRA) CAPSULE PO SCH (20:57)
[2018-11-13] VITALS: BP 114/69
[2018-11-13] MEDS: NS IV 1000 ML 1,000 ML IV SCH (00:34)
[2018-11-13 05:15] LABS: BASOPHILS % (AUTO) 0 % (0-10); EOSINOPHILS % (AUTO) 0 % (0-10); HEMATOCRIT 34 % (35-52); HEMOGLOBIN 11.2 G/DL (11.5-16.0); LYMPHOCYTES # (AUTO) 2.2 X 10^3 (1.0-4.0); LYMPHOCYTES % (AUTO) 24 % (12-44); MEAN CORPUSCULAR HEMOGLOBIN 28 PG (25-34); MEAN CORPUSCULAR HGB CONC 33 G/DL (32-36); MEAN CORPUSCULAR VOLUME 86 FL (80-99); MEAN PLATELET VOLUME 9.9 FL (7.4-10.4); MONOCYTES # (AUTO) 0.8 X 10^3 (0.0-1.0); MONOCYTES % (AUTO) 9 % (0-12); NEUTROPHILS # (AUTO) 6.1 X 10^3 (1.8-7.8); NEUTROPHILS % (AUTO) 67 % (42-75); PLATELET COUNT 250 10^3/uL (130-400); RED CELL DISTRIBUTION WIDTH 13.3 % (10.0-14.5); WHITE BLOOD COUNT 9.2 10^3/uL (4.3-11.0)
[2018-11-13 05:34] LABS: BUN/CREATININE RATIO 14; CALCIUM 9.4 MG/DL (8.5-10.1); CARBON DIOXIDE 24 MMOL/L (21-32); CHLORIDE 107 MMOL/L (98-107); CREATININE SERUM 0.66 MG/DL (0.60-1.30); GFR ESTIMATED > 60; GLUCOSE 95 MG/DL (70-105); POTASSIUM 3.6 MMOL/L (3.6-5.0); SODIUM 142 MMOL/L (135-145)
[2018-11-13] MEDS: predniSONE 5 MG TAB PO SCH (06:03)
[2018-11-13] MEDS: LACTOBACILLUS ACIDOPHILUS (PROBIOTIC) CAPSULE PO SCH (06:04)
[2018-11-13] MEDS ORDERED: LACT1CAP7 PO (07:12)
[2018-11-13] MEDS ORDERED: LEVO750T9 PO (07:12)
--- NOTE | 2018-11-13 07:13 | Discharge Inst-Simple/Standard ---
Discharge Inst-Standard Discharge Medications New, Converted or Re-Newed RX: Transmitted to Pharmacy Patient Instructions/Follow Up Plan of Care/Instructions/FU: Please continue to take your medications as written. Please follow up with your PCP in the next week to follow up this hospital stay. Activity as Tolerated: Yes Discharge Diet: No Restrictions Return to The Hospital For: Fever, confusion, pain, shortness of breath, chest pain, if you feel you are getting worse. Planned Outpatient Orders/Ref. Pneu Vac Indicated: Yes GILBERT RIVERA MD Nov 13, 2018 7:13 am
--- NOTE | 2018-11-13 07:15 | Discharge Summary-Hospitalist ---
Diagnosis/Chief Complaint Date of Admission Nov 10, 2018 at 6:43 pm Date of Discharge Discharge Date: Nov 13, 2018 Admission Diagnosis Severe Sepsis Discharge Diagnosis (1) Sepsis Status: Acute Assessment & Plan: UTI as source e. coli on culture, await sensitivites Febrile with tachycardia Continue Levaquin (2) UTI (urinary tract infection) Assessment & Plan: Continue abx as above Await sensitivities (3) Essential (primary) hypertension Status: Chronic Assessment & Plan: well controlled hold home meds for now (4) Hypothyroidism Status: Chronic Assessment & Plan: resume home meds (5) Adrenal insufficiency Assessment & Plan: on chronic steroids Stress dosed in ER Continue home dose Given hypotension this AM without home antihypertensives will continue stress dose Solu medrol ordered Discharge Summary Discharge Physical Exam Allergies: Coded Allergies: diethyltoluamide (Unverified Allergy, Intermediate, RASH, HIVES, RESPIRATORY, 09/14/10) RESCUE INHALER GOT PT TO HOSPITAL, BUT STATES IT WAS LIKE A BAD ASTHMA ATTACK Infant Form.,Urea Cycle Disord (Unverified Allergy, Mild, RASH, 09/14/10) adhesive tape (Unverified Allergy, Mild, RASH, 09/14/10) erythromycin base (Unverified Allergy, Mild, RASH, 09/14/10) tetracycline (Unverified Allergy, Mild, 04/29/14) cefaclor (Verified Allergy, Unknown, 02/28/09) iodine (Verified Allergy, Unknown, 02/28/09) Uncoded Allergies: METAL (Adverse Reaction, Mild, RASH, 09/14/10) Vitals & I&Os Vital Signs Date Time Temp Pulse Resp B/P (MAP) Pulse Ox O2 Delivery O2 Flow Rate FiO2 11/13/18 06:36 Room Air 11/13/18 00:00 97.0 62 18 114/69 (84) 98 11/12/18 08:56 0.00 Hospital Course Labs (last 24 hrs) Laboratory Tests 11/13/18 04:45: White Blood Count 9.2, Red Blood Count 4.00L, Hemoglobin 11.2L, Hematocrit 34L, Mean Corpuscular Volume 86, Mean Corpuscular Hemoglobin 28, Mean Corpuscular Hemoglobin Concent 33, Red Cell Distribution Width 13.3, Platelet Count 250, Mean Platelet Volume 9.9, Neutrophils (%) (Auto) 67, Lymphocytes (%) (Auto) 24, Monocytes (%) (Auto) 9, Eosinophils (%) (Auto) 0, Basophils (%) (Auto) 0, Neutrophils # (Auto) 6.1, Lymphocytes # (Auto) 2.2, Monocytes # (Auto) 0.8, Eo sinophils # (Auto) 0.0, Basophils # (Auto) 0.0, Sodium Level 142, Potassium Level 3.6, Chloride Level 107, Carbon Dioxide Level 24, Anion Gap 11, Blood Urea Nitrogen 9, Creatinine 0.66, Estimat Glomerular Filtration Rate > 60, BUN/Creatinine Ratio 14, Glucose Level 95, Calcium Level 9.4 Microbiology 11/10/18 Blood Culture - Preliminary, Resulted No growth 11/10/18 Urine Culture - Final, Complete Escherichia coli Patient resulted labs reviewed. Pending Labs Laboratory Tests 11/13/18 04:45: White Blood Count 9.2, Red Blood Count 4.00, Hemoglobin 11.2, Hematocrit 34, Mean Corpuscular Volume 86, Mean Corpuscular Hemoglobin 28, Mean Corpuscular Hemoglobin Concent 33, Red Cell Distribution Width 13.3, Platelet Count 250, Mean Platelet Volume 9.9, Neutrophils (%) (Auto) 67, Lymphocytes (%) (Auto) 24, Monocytes (%) (Auto) 9, Eosinophils (%) (Auto) 0, Basophils (%) (Auto) 0, Neutrophils # (Auto) 6.1, Lymphocytes # (Auto) 2.2, Monocytes # (Auto) 0.8, Eosinophils # (Auto) 0.0, Basophils # (Auto) 0.0, Sodium Level 142, Potassium Level 3.6, Chloride Level 107, Carbon Dioxide Level 24, Anion Gap 11, Blood Urea Nitrogen 9, Creatinine 0.66, Estimat Glomerular Filtration Rate > 60, BUN/Cre atinine Ratio 14, Glucose Level 95, Calcium Level 9.4 Imaging: Reviewed Imaging Report Discharge Home Medications: Active Scripts Active Levaquin (Levofloxacin) 750 Mg Tablet 750 Mg PO DAILY Acidophilus-Pectin Capsule (Lactobacillus Acidophilus/Pect) 1 Each Capsule 2 Each PO TIDWM Reported Fish Oil 1,200 mg Softgel (Erin-3 Fatty Acids/Fish Oil) 1 Each Capsule 2 Each PO HS Fish Oil 1,200 mg Softgel (Erin-3 Fatty Acids/Fish Oil) 1 Each Capsule 3 Cap PO DAILY Medrol (Methylprednisolone) 4 Mg Tab 4 Mg PO DAILY PRN 6 Days as directed per dose pack Cyclobenzaprine HCl 10 Mg Tablet 10 Mg PO DAILY PRN Combivent Respimat Inhal Midway (Albuterol/Ipratropium) 4 Gm Aero 2 Puff IH DAILY PRN Victoza 2-Maycol (Liraglutide) 0.6 Mg/0.1 Ml Pen.injctr 0.6 Mg SQ DAILY [Quinacrine 100] 100 100 Tab PO DAILY Fluticasone Propionate 16 Gm Midway.susp 1 Midway NS BID PRN Armodafinil 200 Mg Tablet 1 Tab PO DAILY Methylprednisolone 4 Mg Tablet 4 Mg PO DAILY Fluconazole 100 Mg Tablet 100 Mg PO DAILY Buspirone HCl 10 Mg Tablet 10 Mg PO BID Levocetirizine Dihydrochloride 5 Mg Tablet 5 Mg PO DAILY Gabapentin 300 Mg Capsule 300 Mg PO TID Vitamin B-12 (Cyanocobalamin (Vitamin B-12)) 1,000 Mcg Tablet 1,000 Mcg PO BID Vitamin A 8,000 Unit Capsule 8,000 Unit PO DAILY Tramadol HCl 50 Mg Tablet 100 Mg PO TID PRN Aldactone (Spironolactone) 25 Mg Tablet 25 Mg PO DAILY Omeprazole 20 Mg Capsule.dr 20 Mg PO DAILY Levothyroxine Sodium 125 Mcg Tablet 125 Mcg PO DAILY Diazepam 5 Mg Tablet 10 Mg PO HS PRN TAKES 2 (5MG) TABLETS Ibuprofen 800 Mg Tablet 800 Mg PO BID PRN D3-2000 (Cholecalciferol (Vitamin D3)) 2,000 Unit Capsule 2,000 Unit PO DAILY Bupropion HCl Sr (Bupropion HCl) 150 Mg Tablet.er 150 Mg PO DAILY Ropinirole HCl 3 Mg Tablet 3 Mg PO HS Trazodone HCl 150 Mg Tablet 150 Mg PO HS Carvedilol 12.5 Mg Tablet 6.25 Mg PO BID TAKES 6.25MG TABS TWICE DAILY Fenofibrate (Fenofibrate Nanocrystallized) 145 Mg Tablet 145 Mg PO DAILY Montelukast Sodium 10 Mg Tablet 10 Mg PO DAILY Instructions to patient/family Please see electronic discharge instructions given to patient. Clinical Quality Measures DVT/VTE Risk/Contraindication: Risk Factor Score Per Nursin RFS Level Per Nursing on Admit: 2=Moderate Problem Qualifiers (1) Sepsis: Sepsis type: sepsis due to unspecified organism Qualified Codes: A41.9 - Sepsis, unspecified organism (2) UTI (urinary tract infection): Urinary tract infection type: acute cystitis Hematuria presence: with hematuria Qualified Codes: N30.01 - Acute cystitis with hematuria (3) Hypothyroidism: Hypothyroidism type: unspecified Qualified Codes: E03.9 - Hypothyroidism, unspecified GILBERT RIVERA MD Nov 13, 2018 7:15 am
[2018-11-13 08:20] VITALS: BP 121/67
[2018-11-13] MEDS: ARMODAFINIL PO SCH (08:44)
[2018-11-13] MEDS: LEVOTHYROXINE 125 MCG (LEVOTHROID) TABLET PO SCH (08:45)
[2018-11-13] MEDS: buPROPion SR 150 MG (WELLBUTRIN SR) TAB PO SCH (08:45)
[2018-11-13] MEDS: busPIRone 10 MG (BUSPAR) TAB PO SCH (08:46)
[2018-11-13] MEDS: MONTELUKAST 10 MG (SINGULAIR) TAB PO SCH (08:46)
[2018-11-13] MEDS: fluCOnazole (DIFLUCAN) 100 MG TAB PO SCH (08:46)
[2018-11-13] MEDS: PANTOPRAZOLE 20 MG TABLET (PROTONIX) PO SCH (08:46)
[2018-11-13] MEDS: LORATADINE (CLARITIN) 10 MG TAB PO SCH (08:46)
[2018-11-13] MEDS: GABAPENTIN 300 MG (NEURONTIN) CAP PO SCH (08:46)
[2018-11-13 09:05] VITALS: BP 121/67
== END 2018-11-13 09:10 | disposition home or self-care (01) | DRG 872 ==
LOC: EDUNIT# 16:31 → ER 16:33 → 4TH 18:43
PROVIDERS: ADMIT Family Medicine; ATTEND Family Medicine
DX: A41.51 Sepsis due to Escherichia coli [E. coli] (principal); R65.20 Severe sepsis without septic shock; N30.01 Acute cystitis with hematuria; E27.40 Unspecified adrenocortical insufficiency; G61.0 Guillain-Barre syndrome; I10 Essential (primary) hypertension; E03.9 Hypothyroidism, unspecified; M79.7 Fibromyalgia; J45.909 Unspecified asthma, uncomplicated; K21.9 Gastro-esophageal reflux disease without esophagitis; K58.1 Irritable bowel syndrome with constipation; M06.9 Rheumatoid arthritis, unspecified; M19.91 Primary osteoarthritis, unspecified site; L30.9 Dermatitis, unspecified; Z87.891 Personal history of nicotine dependence
CPT/HCPCS: 36415; 71045; 80048; 80053; 81000; 83605; 85007; 85025; 85027; 85610; 85730; 87040; 87077; 87088; 87186; 94760

== ENCOUNTER → 2019-01-16 | Outpatient (CLI) | payer MEDICARE ==
[~2019-01-16] VITALS: Ht 157.5 cm; Wt 78.9 kg
[~2019-01-16] MED LIST changes: +ARMO200T4 PO; +BUPR150T14 PO; +BUSP10TA95 PO; +CARV12.53 PO; +CATHETER FLUSH 10 ML SYR IV PRN; +CHOL200012 PO; +CYAN-41 PO; +DIAZ5TAB3 PO; +FENO145T37 PO; +FERR-65 PO; +FLUC100T6 PO; +GABA-488 PO; +IBUP-1780 PO; +IPRA4AER IH; +LACT1CAP7 PO; +LEVO125T6 PO; +LEVO5TAB12 PO; +LEVO750T9 PO; +LIRA0.6P SQ; +LORA10TA7 PO; +METH4TAB11 PO; +MONT10TA24 PO; +NF-METHYLP PO; +OMEG-109 PO; +OMEG100032 PO; +OMEP20CA13 PO; +QUINACRINE PO; +REGADENOSON 0.4 MG/5 ML SYR (LEXISCAN) IV ONE; +ROPI3TAB4 PO; +SPIR25TA PO; +TRAZ150T72 PO
[2019-01-16 08:07] VITALS: BP 142/73
[2019-01-16 08:20] VITALS: BP 118/69
--- NOTE | 2019-01-16 11:51 | Cardiology Stress Test Report ---
Stress Test Report Type of NM Stress Test: Test Type: LEXISCAN 0.4MG/5ML Date of Procedure/Referring: Date of Procedure: Jan 16, 2019 PCP Pauline Merino,Lu[place] Admitting Physician Ronni Merino DO Indications: bradycardia Baseline Blood Pressure: Blood Pressure Systolic: 118 Blood Pressure Diastolic: 69 Summary & Conclusion: Summary: The patient was brought to the stress lab after informed consent was taken. Stress test was performed according to the Lexiscan protocol. 0.4 mg of IV Lexiscan was given. Low-grade exercise was performed. Please see Dr Merino's report on the stress testing. 10.71 mCi of Myoview were given for rest imaging and 31 mCi of Myoview given for stress imaging. Transient ischemic dilatation score 1.06, EF 67 percent. Normal wall motion. Small moderate intensity anterior apical reversible defect. Conclusion: Pharmacological stress test was negative for ischemia. Normal LV function with no wall motion abnormalities. Possible anterior apical ischemia. Clinical correlation is recommended. Gerson MEDINA MD Jan 16, 2019 11:51
== END ==
LOC: CARD 06:49
PROVIDERS: ATTEND Nurse Practitioner Family
DX: R00.1 Bradycardia, unspecified (principal)
CPT/HCPCS: 78452; 93017

== ENCOUNTER 2019-11-02 17:49 | Observation (INO) | payer MEDICARE ==
[~2019-11-02] VITALS: Ht 157.4 cm; Wt 77.2 kg
[~2019-11-02 17:49] MED LIST changes: -CATHETER FLUSH 10 ML SYR IV PRN; -DIAZ5TAB3 PO; +DIAZ5TAB49 PO; +FENO145T26 PO; -FENO145T37 PO; -MONT10TA24 PO; +MONT10TA26 PO; -OMEP20CA13 PO; +OMEP20CA18 PO; -REGADENOSON 0.4 MG/5 ML SYR (LEXISCAN) IV ONE; +TRM50T PO
--- OUTSIDE RECORDS SUMMARY | 2019-11-02 18:07 | XMS REPORT | Continuity of Care Document ---
Demographics Preferred Language Unknown Marital Status Unknown Rastafari Affiliation Unknown Race Unknown Ethnic Group Unknown Author Organization Unknown Address Unknown Phone Unavailable Allergies Active Description Code Type Severity Reaction Onset Reported/Identified Relationship to Patient Clinical Status Yes CECLOR [id number] BRANDNAME N/A PT DENIES ALLERGY TO ANCEF, REPORTS SHE HAS HAD IT WITHOUT PROBLEMS Yes DEET INSECT REPELLANT [id number] ENVIRONMENTAL N/A N/A Yes DURICEF [id number] BRANDNAME N/A N/A Yes ERYTHROMYCIN [id number] DRUG N/A N/A Yes IODINE [id number] DRUG N/A N/A Yes METAL (NAGA) [id number] ENVI RONMENTAL N/A N/A Yes TAPE [id number] ENVIRONMENTAL N/A N/A Yes TETRACYCLINE [id number] DRUG N/A N/A Yes TRIPLE ANTIBIOTIC OINTMENT [id number] BRANDNAME N/A N/A Yes cefaclor [id number] Drug Allergy Unknown N/A 02/28/2009 Yes iodine [id number] Drug Allergy Unknown N/A 02/28/2009 Yes diethyltoluamide [id number] Drug Allergy Moderate RASH, HIVES, RE 12/2010 Yes adhesive tape [id number] Evan g Allergy Mild RASH 09/14/2010 Yes erythromycin base [id number] Drug Allergy Mild RASH 09/14/2010 Yes Form.,Urea Cycle Disord [id number] Drug Allergy Mild RASH 09/14/2010 Yes METAL METAL Mild RASH 09/14/2010 Yes tetracycline [id number] Drug Allergy Mild N/A 04/29/2014 Medications There is no data. Problems Date Dx Coded Attending Type Code Diagnosis Diagnosed By 05/14/2009 Ot 401.9 05/14/2009 Ot 476.0 05/14/2009 Ot V57.3 05/14/2009 Ot V58.49 09/25/2010 Ot 244.9 09/25/2010 Ot 251.1 09/25/2010 Ot 253.6 09/25/2010 Ot 272.2 09/25/2010 Ot 277.7 09/25/2010 Ot 278.00 09/25/2010 Ot 327.51 09/25/2010 Ot 348.4 09/25/2010 Ot 357.0 09/25/2010 Ot 493.00 09/25/2010 Ot 530.81 09/25/2010 Ot 729.1 09/25/2010 Ot 795.79 09/25/2010 Ot 796.1 09/25/2010 Ot V12.69 09/25/2010 Ot V57.1 09/25/2010 Ot V57.21 09/25/2010 Ot V57.3 09/25/2010 Ot V85.38 10/16/2010 Ot 111.9 10/16/2010 Ot 244.9 10/16/2010 Ot 272.4 10/16/2010 Ot 273.8 10/16/2010 Ot 275.2 10/16/2010 Ot 276.1 10/16/2010 Ot 278.00 10/16/2010 Ot 300.4 10/16/2010 Ot 357.0 10/16/2010 Ot 401.9 10/16/2010 Ot 493.90 10/16/2010 Ot 530.81 10/16/2010 Ot 710.0 10/16/2010 Ot 729.1 10/16/2010 Ot 780.52 10/16/2010 Ot V57.1 10/16/2010 Ot V57.21 10/16/2010 Ot V85.39 10/22/2010 Ot 244.9 10/22/2010 Ot 251.1 10/22/2010 Ot 272.2 10/22/2010 Ot 277.7 10/22/2010 Ot 278.00 10/22/2010 Ot 280.9 10/22/2010 Ot 327.51 10/22/2010 Ot 357.0 10/22/2010 Ot 401.9 10/22/2010 Ot 493.00 10/22/2010 Ot 530.81 10/22/2010 Ot 729.1 10/22/2010 Ot 795.79 10/22/2010 Ot V12.09 10/22/2010 Ot V12.79 10/22/2010 Ot V85.35 03/04/2013 DEVON PHAN DO Ot 241.1 03/04/2013 DEVON PHAN DO Ot 244.9 03/04/2013 DEVON PHAN DO Ot 251.1 03/04/2013 DEVON PHAN DO Ot 272.4 03/04/2013 DEVON PHAN DO Ot 276.51 03/04/2013 DEVON PHAN DO Ot 277.7 03/04/2013 DEVON PHAN DO Ot 278.00 03/04/2013 DEVON PHAN DO Ot 280.9 03/04/2013 DEVON PHAN DO Ot 327.51 03/04/2013 DEVON PHAN DO Ot 355.8 03/04/2013 DEVON PHAN DO Ot 401.9 03/04/2013 [place] N[place] DEVON Aceves Ot 493.90 03/04/2013 [place] N[place] DEVON Aceves Ot 530.81 03/04/2013 DEVON PHAN DO Ot 729.1 03/04/2013 DEVON PHAN DO Ot 780.79 03/04/2013 DEVON PHAN DO Ot 784.51 03/04/2013 DEVON PHAN DO Ot 787.60 03/04/2013 DEVON PHAN DO Ot 787.91 03/04/2013 [place] N[place] DEVON Aceves Ot 795.79 03/04/2013 [place] DEVON Aceves Ot E947.9 03/04/2013 [place] N[place] DEVON Aceves Ot V85.39 03/22/2014 PHAN NEGRA Gunner A P SUPERVISOR Ot 241.0 03/22/2014 [place] NEGRA Gunner A P SUPERVISOR Ot 785.2 03/29/2014 PHAN NEGRA Gunner A P SUPERVISOR Ot 241.0 03/29/2014 PHAN, NEGRA Gunner A P SUPERVISOR Ot 785.2 04/29/2014 LASHAWN BURGESS Ot 9 38 FOREIGN BODY GI NOS 04/29/2014 LASHAWN BURGESS Ot E000.8 OTHER EXTERNAL CAUSE STATUS 04/29/2014 LASHAWN BURGESS Ot E849.0 ACCIDENT IN HOME 04/29/2014 LASHAWN BURGESS Ot E915 FB ENTERING OTH ORIFICE 05/02/2014 Ot 246.2 05/02/2014 Ot 478.5 05/02/2014 Ot V72.81 05/02/2014 Ot V72.83 05/02/2014 Ot V74.8 05/02/2014 Ot 244.9 05/02/2014 Ot 784.49 05/02/2014 Ot 478.5 05/02/2014 Ot V72.83 05/02/2014 Ot V74.8 05/02/2014 Ot V76.12 05/02/2014 Ot 715.94 05/02/2014 Ot 959.3 05/02/2014 Ot E000.8 05/02/2014 Ot E849.0 05/02/2014 Ot E888.9 05/02/2014 Ot 241.1 05/02/2014 Ot 790.6 05/02/2014 Ot 786.50 05/02/2014 Ot 787.20 05/02/2014 Ot 241.1 05/02/2014 Ot 787.02 05/02/2014 Ot 789.00 05/02/2014 Ot V76.12 05/02/2014 DEVON PHAN DO Ot 241.0 05/02/2014 DEVON PHAN DO Ot 761.2 05/02/2014 NEGRA PHAN A P SUPERVISOR Ot 721.3 05/02/2014 NEGRA PHAN A P SUPERVISOR Ot 241.0 05/02/2014 NEGRA PHAN A P SUPERVISOR Ot 785.2 05/02/2014 LASHAWN BURGESS Ot 9 38 05/02/2014 LASHAWN BURGESS Ot E000.8 05/02/2014 LASHAWN BURGESS Ot E849.0 05/02/2014 LASHAWN BURGESS Ot E915 05/02/2014 LASHAWN BURGESS Ot 9 38 05/02/2014 LASHAWN BURGESS Ot E000.8 05/02/2014 LASHAWN BURGESS Ot E849.0 05/02/2014 LASHAWN BURGESS Ot E915 05/02/2014 LASHAWN BURGESS Ot 9 38 05/02/2014 LASHAWN BURGESS Ot E000.8 05/02/2014 LASHAWN BURGESS Ot E849.0 05/02/2014 LASHAWN BURGESS Ot E915 05/15/2015 DEVON PHAN DO Ot E04.1 05/15/2015 DEVON PHAN DO Ot Z12.31 05/16/2015 DEVON PHAN DO Ot E04.1 05/16/2015 DEVON PHAN DO Ot Z12.31 10/10/2018 P R001 Geraldo cardia, unspecified 11/10/2018 DEVON PHAN DO Ot 241.0 NONTOX UNINODULAR GOITER 11/10/2018 DEVON PHAN DO Ot 761.2 OLIGOHYDRAMNIOS AFF NB 11/10/2018 [place] NEGRA Gunner A P SUPERVISOR Ot 721.3 LUMBOSACRAL SPONDYLOSIS 11/10/2018 NEGRA PHAN A P SUPERVISOR Ot 241.0 NONTOX UNINODULAR GOITER 11/10/2018 IVA PHANIA Gunner A P SUPERVISOR Ot 785.2 CARDIAC MURMURS NEC 11/10/2018 DEVON PHAN DO Ot E04.1 NONTOXIC SINGLE THYROID NODULE 11/10/2018 DEVON PHAN DO Ot Z12.31 ENCNTR SCREEN MAMMOGRAM FOR MALIGNANT NE 11/13/2018 GILBERT RIVERA MD, Ot A41. 51 SEPSIS DUE TO ESCHERICHIA COLI [E. COLI] 11/13/2018 GILBERT RIVERA MD, Ot E03. 9 HYPOTHYROIDISM, UNSPECIFIED 11/13/2018 GILBERT RIVERA MD, Ot E27. 40 UNSPECIFIED ADRENOCORTICAL INSUFFICIENCY 11/13/2018 GILBERT RIVERA MD, Ot G61. 0 GUILLAIN-BARRE SYNDROME 11/13/2018 GILBERT RIVERA MD, Ot I10 ESSENTIAL (PRIMARY) HYPERTENSION 11/13/2018 GILBERT RIVERA MD, Ot J45.909 UNSPECIFIED ASTHMA, UNCOMPLICATED 11/13/2018 GILBERT RIVERA MD, Ot K21. 9 GASTRO-ESOPHAGEAL REFLUX DISEASE WITHOUT 11/13/2018 GILBERT RIVERA MD, Ot K58. 1 IRRITABLE BOWEL SYNDROME WITH CONSTIPATI 11/13/2018 GILBERT RIVERA MD, Ot L30. 9 DERMATITIS, UNSPECIFIED 11/13/2018 GILBERT RIVERA MD, Ot M06. 9 RHEUMATOID ARTHRITIS, UNSPECIFIED 11/13/2018 GILBERT RIVERA MD, Ot M19. 91 PRIMARY OSTEOARTHRITIS, UNSPECIFIED SITE 11/13/2018 GILBERT RIVERA MD Ot M79. 7 FIBROMYALGIA 11/13/2018 GILBERT RIVERA MD, Ot N30. 01 ACUTE CYSTITIS WITH HEMATURIA 11/13/2018 GILBERT RIVERA MD Ot R65. 20 SEVERE SEPSIS WITHOUT SEPTIC SHOCK 11/13/2018 MIGUEL RONQUILLO, GILBERT Nieto Ot Z87.891 PERSONAL HISTORY OF NICOTINE DEPENDENCE 01/16/2019 S E559 Vitam in D deficiency, unspecified 01/16/2019 P R001 Geraldo cardia, unspecified 01/18/2019 PHAN, NEGRA L A P SUPERVISOR Ot R00.1 BRADYCARDIA, UNSPECIFIED 01/18/2019 PHAN, NEGRA L A P SUPERVISOR Ot R00.1 BRADYCARDIA, UNSPECIFIED 02/09/2019 PHAN, NEGRA L A P SUPERVISOR Ot R00.1 BRADYCARDIA, UNSPECIFIED 02/16/2019 PHAN, NEGRA L A P SUPERVISOR Ot R00.1 BRADYCARDIA, UNSPECIFIED 07/10/2019 PHAN, NEGRA L A P SUPERVISOR Ot 241.0 NONTOX UNINODULAR GOITER 07/10/2019 PHAN, NEGRA L A P SUPERVISOR Ot 785.2 CARDIAC MURMURS NEC 07/10/2019 PHAN DO, DEVON J Ot E04.1 NONTOXIC SINGLE THYROID NODULE 07/10/2019 [place] DO, DEVON J Ot Z12.31 ENCNTR SCREEN MAMMOGRAM FOR MALIGNANT NE 07/10/2019 PHAN, NEGRA L A P SUPERVISOR Ot 241.0 NONTOX UNINODULAR GOITER 07/10/2019 PHAN, NEGRA L A P SUPERVISOR Ot 785.2 CARDIAC MURMURS NEC 07/10/2019 PHAN DO, DEVON J Ot E04.1 NONTOXIC SINGLE THYROID NODULE 07/10/2019 [place] DO, DEVON J Ot Z12.31 ENCNTR SCREEN MAMMOGRAM FOR MALIGNANT NE 07/14/2019 PHAN, NEGRA L A P SUPERVISOR Ot 241.0 NONTOX UNINODULAR GOITER 07/14/2019 PHAN, NEGRA L A P SUPERVISOR Ot 785.2 CARDIAC MURMURS NEC 07/14/2019 [place] DO, DEVON J Ot E04.1 NONTOXIC SINGLE THYROID NODULE 07/14/2019 [place] DO, DEVON J Ot Z12.31 ENCNTR SCREEN MAMMOGRAM FOR MALIGNANT NE Procedures There is no data. Results Test Result Range Complete urinalysis with reflex to cultu re - 11/10/18 16:35 Urine color determination YELLOW NRG Urine clarity determination VERY CLOUDY NRG Urine pH measurement by test strip 7 5-9 Specific gravity of urine by test strip 1.010 1.016-1.022 Urine protein assay by test strip, semi-quantitative 2+ NEGATIVE Urine glucose detection by automated test strip NE GATIVE NEGATIVE Erythrocytes detection in urine sediment by light micr oscopy 5+ NEGATIVE Urine ketones detection by automated test strip NE GATIVE NEGATIVE Urine nitrite detection by test strip NEGATIVE NEGATIVE Urine total bilirubin detection by test strip NEGA TIVE NEGATIVE Urine urobilinogen measurement by automated test strip (mass/volume) 1 mg/dL NORMAL Urine leukocyte esterase detection by dipstick 3+ NEGATIVE Automated urine sediment erythrocyte cou nt by microscopy (number/high power field) [HPF] NRG Automated urine sediment leukocyte count by microscopy (number/high power field) TNTC NRG Bacteria detection in urine sediment by light microsco py MODERATE NRG Squamous epithelial cells detection in u rine sediment by light microscopy NONE NRG Crystals detection in urine sediment by light microsco py NONE NRG Casts detection in urine sediment by light microscopy NONE NRG Mucus detection in urine sediment by light microscopy NEGATIVE NRG Complete urinalysis with reflex to culture CULTURE PENDING NRG Bacterial urine culture - 11/10/18 16:35 Bacterial urine culture [id number] NRG COLONY COUNT >100,000/ML NRG FTX;REPORTABLE SUSCEPTIBILITY REPORTED 11/12 12:35 NRG FREE TEXT ENTRY 2 ID REPORTED 11/11/18 17:05 NRG Dirithromycin susceptibility test by dis k diffusion - 11/10/18 16:35 Gentamicin susceptibility test by minimum inhibitory c oncentration <= NRG Trimethoprim/sulfamethoxazole susceptibi lity test by minimum inhibitoryconcentration > NRG Levofloxacin susceptibility test by minimum inhibitory concentration <= NRG Ampicillin susceptibility test by minimum inhibitory c oncentration > NRG Cefazolin susceptibility test by minimum inhibitory co ncentration <= NRG Ceftriaxone susceptibility test by minimum inhibitory concentration <= NRG Ciprofloxacin susceptibility test by minimum inhibitor y concentration <= NRG Meropenem susceptibility test by minimum inhibitory co ncentration <= NRG Nitrofurantoin susceptibility test by mi nimum inhibitory concentration <= NRG Amoxicillin and clavulanate potassium susc KILO > NRG Serum or plasma lactate measurement (mol es/volume) - 11/10/18 16:57 Serum or plasma lactate measurement (moles/volume) 0.96 mmol/L 0.50-2.00 Complete blood count (CBC) with automate d white blood cell (WBC) differential - 11/10/18 16:59 Blood leukocytes automated count (number/volume) 9.2 10*3/uL 4.3-11.0 Blood erythrocytes automated count (number/volume) 5.10 10*6/uL 4.35-5.85 Venous blood hemoglobin measurement (mass/volume) 14.2 g/dL 11.5-16.0 Blood hematocrit (volume fraction) 43 % 35-52 Automated erythrocyte mean corpuscular volume 85 [ foz_us] 80-99 Automated erythrocyte mean corpuscular h emoglobin (mass per erythrocyte) 28 pg 25-34 Automated erythrocyte mean corpuscular h emoglobin concentration measurement (mass/volume) 33 g/dL 32-36 Automated erythrocyte distribution width ratio 13. 7 % 10.0- 14.5 Automated blood platelet count (count/volume) 318 10*3/uL 130-400 Automated blood platelet mean volume measurement 10.0 [foz_us] 7.4-10.4 Automated blood neutrophils/100 leukocytes 90 % 42-75 Automated blood lymphocytes/100 leukocytes 8 % 12-44 Blood monocytes/100 leukocytes 2 % 0-12 Automated blood eosinophils/100 leukocytes 0 % 0-10 Automated blood basophils/100 leukocytes 0 % 0-10 Blood neutrophils automated count (number/volume) 8.2 10*3 1.8-7.8 Blood lymphocytes automated count (number/volume) 0.7 10*3 1.0-4.0 Blood monocytes automated count (number/volume) 0. 2 10*3 0.0-1.0 Automated eosinophil count 0.0 10*3/uL 0 .0-0.3 Automated blood basophil count (count/volume) 0.0 10*3/uL 0.0-0.1 PT panel in platelet poor plasma by coag ulation assay - 11/10/18 16:59 Prothrombin time (PT) in platelet poor plasma by coagu lation assay 12.8 s 12.2-14.7 INR in platelet poor plasma or blood by coagulation as say 0.9 0.8-1.4 Activated partial thromboplastin time (a PTT) in platelet poor plasma bycoagulation assay - 11/10/18 16:59 Activated partial thromboplastin time (a PTT) in platelet poor plasma bycoagulation assay 26 s 24-35 Blood lactic acid measurement (moles/vol ume) - 11/10/18 16:59 Blood lactic acid measurement (moles/volume) 2.45 mmol/L 0.50-2.00 Comprehensive metabolic panel - 11/10/18 16:59 Serum or plasma sodium measurement (moles/volume) 139 mmol/L 135-145 Serum or plasma potassium measurement (moles/volume) 3.9 mmol/L 3.6-5.0 Serum or plasma chloride measurement (moles/volume) 102 mmol/L 98-107 Carbon dioxide 26 mmol/L 21-32 Serum or plasma anion gap determination (moles/volume) 11 mmol/L 5-14 Serum or plasma urea nitrogen measurement (mass/volume ) 18 mg/dL 7-18 Serum or plasma creatinine measurement (mass/volume) 0.84 mg/dL 0.60-1.30 Serum or plasma urea nitrogen/creatinine mass ratio 21 NRG Serum or plasma creatinine measurement w ith calculation of estimated glomerular filtration rate > NRG Serum or plasma glucose measurement (mass/volume) 101 mg/dL 70-105 Serum or plasma calcium measurement (mass/volume) 10.1 mg/dL 8.5-10.1 Serum or plasma total bilirubin measurement (mass/volu me) 0.7 mg/dL 0.1-1.0 Serum or plasma alkaline phosphatase velma surement (enzymatic activity/volume) 43 U/L 40-136 Serum or plasma aspartate aminotransfera se measurement (enzymatic activity/volume) 29 U/L 5-34 Serum or plasma alanine aminotransferase measurement (enzymatic activity/volume) 24 U/L 0-55 Serum or plasma protein measurement (mass/volume) 6.8 g/dL 6.4-8.2 Serum or plasma albumin measurement (mass/volume) 4.3 g/dL 3.2-4.5 CALCIUM CORRECTED 9.9 mg/dL 8.5-10.1 Manual absolute plasma cell count - 08/26 16:59 Blood monocytes/100 leukocytes 1 % NRG Manual blood segmented neutrophils/100 leukocytes 84 % NRG Blood band neutrophils/100 leukocytes 8 % NRG Manual blood lymphocytes/100 leukocytes 7 % NRG Manual eosinophils/100 leukocytes in nose 0 % NRG Manual blood basophils/100 leukocytes 0 % NRG Blood erythrocyte morphology finding identification NORMAL NRG Bacterial blood culture - 11/10/18 16:59 Bacterial blood culture NG NRG Bacterial blood culture - 11/10/18 17:44 Bacterial blood culture NG NRG Complete blood count (CBC) with automate d white blood cell (WBC) differential - 11/11/18 05:35 Blood leukocytes automated count (number/volume) 14.7 10*3/uL 4.3-11.0 Blood erythrocytes automated count (number/volume) 4.51 10*6/uL 4.35-5.85 Venous blood hemoglobin measurement (mass/volume) 12.5 g/dL 11.5-16.0 Blood hematocrit (volume fraction) 39 % 35-52 Automated erythrocyte mean corpuscular volume 86 [ foz_us] 80-99 Automated erythrocyte mean corpuscular h emoglobin (mass per erythrocyte) 28 pg 25-34 Automated erythrocyte mean corpuscular h emoglobin concentration measurement (mass/volume) 32 g/dL 32-36 Automated erythrocyte distribution width ratio 13. 2 % 10.0- 14.5 Automated blood platelet count (count/volume) 255 10*3/uL 130-400 Automated blood platelet mean volume measurement 10.2 [foz_us] 7.4-10.4 Automated blood neutrophils/100 leukocytes 89 % 42-75 Automated blood lymphocytes/100 leukocytes 6 % 12-44 Blood monocytes/100 leukocytes 5 % 0-12 Automated blood eosinophils/100 leukocytes 0 % 0-10 Automated blood basophils/100 leukocytes 0 % 0-10 Blood neutrophils automated count (number/volume) 13.1 10*3 1.8-7.8 Blood lymphocytes automated count (number/volume) 0.8 10*3 1.0-4.0 Blood monocytes automated count (number/volume) 0. 8 10*3 0.0-1.0 Automated eosinophil count 0.0 10*3/uL 0 .0-0.3 Automated blood basophil count (count/volume) 0.0 10*3/uL 0.0-0.1 Comprehensive metabolic panel - 11/11/18 05:35 Serum or plasma sodium measurement (moles/volume) 142 mmol/L 135-145 Serum or plasma potassium measurement (moles/volume) 4.0 mmol/L 3.6-5.0 Serum or plasma chloride measurement (moles/volume) 108 mmol/L 98-107 Carbon dioxide 24 mmol/L 21-32 Serum or plasma anion gap determination (moles/volume) 10 mmol/L 5-14 Serum or plasma urea nitrogen measurement (mass/volume ) 13 mg/dL 7-18 Serum or plasma creatinine measurement (mass/volume) 0.72 mg/dL 0.60-1.30 Serum or plasma urea nitrogen/creatinine mass ratio 18 NRG Serum or plasma creatinine measurement w ith calculation of estimated glomerular filtration rate > NRG Serum or plasma glucose measurement (mass/volume) 139 mg/dL 70-105 Serum or plasma calcium measurement (mass/volume) 9.1 mg/dL 8.5-10.1 Serum or plasma total bilirubin measurement (mass/volu me) 0.3 mg/dL 0.1-1.0 Serum or plasma alkaline phosphatase velma surement (enzymatic activity/volume) 37 U/L 40-136 Serum or plasma aspartate aminotransfera se measurement (enzymatic activity/volume) 27 U/L 5-34 Serum or plasma alanine aminotransferase measurement (enzymatic activity/volume) 24 U/L 0-55 Serum or plasma protein measurement (mass/volume) 5.7 g/dL 6.4-8.2 Serum or plasma albumin measurement (mass/volume) 3.6 g/dL 3.2-4.5 CALCIUM CORRECTED 9.4 mg/dL 8.5-10.1 Complete blood count (CBC) with automate d white blood cell (WBC) differential - 11/12/18 05:15 Blood leukocytes automated count (number/volume) 9.6 10*3/uL 4.3-11.0 Blood erythrocytes automated count (number/volume) 4.03 10*6/uL 4.35-5.85 Venous blood hemoglobin measurement (mass/volume) 11.2 g/dL 11.5-16.0 Blood hematocrit (volume fraction) 35 % 35-52 Automated erythrocyte mean corpuscular volume 86 [ foz_us] 80-99 Automated erythrocyte mean corpuscular h emoglobin (mass per erythrocyte) 28 pg 25-34 Automated erythrocyte mean corpuscular h emoglobin concentration measurement (mass/volume) 32 g/dL 32-36 Automated erythrocyte distribution width ratio 13. 4 % 10.0- 14.5 Automated blood platelet count (count/volume) 249 10*3/uL 130-400 Automated blood platelet mean volume measurement 9.8 [foz_us] 7.4-10.4 Automated blood neutrophils/100 leukocytes 67 % 42-75 Automated blood lymphocytes/100 leukocytes 21 % 12-44 Blood monocytes/100 leukocytes 12 % 0-12 Automated blood eosinophils/100 leukocytes 0 % 0-10 Automated blood basophils/100 leukocytes 0 % 0-10 Blood neutrophils automated count (number/volume) 6.4 10*3 1.8-7.8 Blood lymphocytes automated count (number/volume) 2.0 10*3 1.0-4.0 Blood monocytes automated count (number/volume) 1. 1 10*3 0.0-1.0 Automated eosinophil count 0.0 10*3/uL 0 .0-0.3 Automated blood basophil count (count/volume) 0.0 10*3/uL 0.0-0.1 Whole blood basic metabolic panel - 10/26 05:15 Serum or plasma sodium measurement (moles/volume) 142 mmol/L 135-145 Serum or plasma potassium measurement (moles/volume) 4.0 mmol/L 3.6-5.0 Serum or plasma chloride measurement (moles/volume) 110 mmol/L 98-107 Carbon dioxide 25 mmol/L 21-32 Serum or plasma anion gap determination (moles/volume) 7 mmol/L 5-14 Serum or plasma urea nitrogen measurement (mass/volume ) 9 mg/dL 7-18 Serum or plasma creatinine measurement (mass/volume) 0.70 mg/dL 0.60-1.30 Serum or plasma urea nitrogen/creatinine mass ratio 13 NRG Serum or plasma creatinine measurement w ith calculation of estimated glomerular filtration rate > NRG Serum or plasma glucose measurement (mass/volume) 93 mg/dL 70-105 Serum or plasma calcium measurement (mass/volume) 8.5 mg/dL 8.5-10.1 Complete blood count (CBC) with automate d white blood cell (WBC) differential - 11/13/18 04:45 Blood leukocytes automated count (number/volume) 9.2 10*3/uL 4.3-11.0 Blood erythrocytes automated count (number/volume) 4.00 10*6/uL 4.35-5.85 Venous blood hemoglobin measurement (mass/volume) 11.2 g/dL 11.5-16.0 Blood hematocrit (volume fraction) 34 % 35-52 Automated erythrocyte mean corpuscular volume 86 [ foz_us] 80-99 Automated erythrocyte mean corpuscular h emoglobin (mass per erythrocyte) 28 pg 25-34 Automated erythrocyte mean corpuscular h emoglobin concentration measurement (mass/volume) 33 g/dL 32-36 Automated erythrocyte distribution width ratio 13. 3 % 10.0- 14.5 Automated blood platelet count (count/volume) 250 10*3/uL 130-400 Automated blood platelet mean volume measurement 9.9 [foz_us] 7.4-10.4 Automated blood neutrophils/100 leukocytes 67 % 42-75 Automated blood lymphocytes/100 leukocytes 24 % 12-44 Blood monocytes/100 leukocytes 9 % 0-12 Automated blood eosinophils/100 leukocytes 0 % 0-10 Automated blood basophils/100 leukocytes 0 % 0-10 Blood neutrophils automated count (number/volume) 6.1 10*3 1.8-7.8 Blood lymphocytes automated count (number/volume) 2.2 10*3 1.0-4.0 Blood monocytes automated count (number/volume) 0. 8 10*3 0.0-1.0 Automated eosinophil count 0.0 10*3/uL 0 .0-0.3 Automated blood basophil count (count/volume) 0.0 10*3/uL 0.0-0.1 Whole blood basic metabolic panel - 11/25 04:45 Serum or plasma sodium measurement (moles/volume) 142 mmol/L 135-145 Serum or plasma potassium measurement (moles/volume) 3.6 mmol/L 3.6-5.0 Serum or plasma chloride measurement (moles/volume) 107 mmol/L 98-107 Carbon dioxide 24 mmol/L 21-32 Serum or plasma anion gap determination (moles/volume) 11 mmol/L 5-14 Serum or plasma urea nitrogen measurement (mass/volume ) 9 mg/dL 7-18 Serum or plasma creatinine measurement (mass/volume) 0.66 mg/dL 0.60-1.30 Serum or plasma urea nitrogen/creatinine mass ratio 14 NRG Serum or plasma creatinine measurement w ith calculation of estimated glomerular filtration rate > NRG Serum or plasma glucose measurement (mass/volume) 95 mg/dL 70-105 Serum or plasma calcium measurement (mass/volume) 9.4 mg/dL 8.5-10.1 Encounters ACCT No. Visit Date/Time Discharge Status Pt. Type Provider Facility Loc./Unit Complaint [id number] 02/08/2019 14:52:03 Document Registration [id number] 01/06/2019 10:55:44 Document Registration [id number] 10/07/2018 08:37:16 Document Registration [id number] 02/18/2018 13:18:36 Document Registration [id number] 10/25/2017 15:03:14 Document Registration [id number] 09/21/2017 13:36:42 Document Registration [id number] 02/09/2017 08:15:06 Document Registration [id number] 02/02/2017 14:54:19 Document Registration [id number] 03/09/2017 19:12:03 03/09/2017 23:59: 59 CLS Outpatient Edith Rouse [id number] 06/05/2015 18:03:25 06/05/2015 23:59: 59 CLS Outpatient Herlinda Janki [id number] 05/19/2015 16:32:18 05/19/2015 23:59: 59 CLS Outpatient Angela Sifuentes [id number] 03/30/2015 12:02:44 03/30/2015 23:59: 59 [place] [id number] 12/17/2014 22:06:04 12/17/2014 23:59: 59 CLS Outpatient Tita Crane [id number] 05/28/2019 12:21:00 05/28/2019 23:59 :00 DIS Outpatient OralDestinen [id number] 01/16/2019 06:49:00 019 23:59:59 CLS Outpatient NEGRA PHAN [facility] CARD BRADYCARDIA [id number] 11/10/2018 18:43:00 019 09:10:00 DIS Inpatient GILBERT RIVERA MD [facility] 4TH SEPSIS,UTI [id number] 04/24/2015 09:11:00 015 23:59:59 CLS Outpatient DEVON PHAN DO [facility] RAD SCREENING, LEFT LOBE NODULE [id number] 04/29/2014 15:26:00 014 18:32:00 DIS Emergency LASHAWN BURGESS [facility] ER FOREIGN BODY [id number] 02/26/2014 13:03:00 014 23:59:59 CLS Outpatient NEGRA PHAN [facility] RAD THYROID NODULE, MURMUR [id number] 11/30/2013 09:40:00 014 23:59:59 CLS Outpatient NEGRA PHAN [facility] RAD LUMBALGIA WITH RADICULOPATHY [id number] 05/30/2013 10:33:00 014 23:59:59 CLS Outpatient DEVON PHAN DO [facility] RAD SCREENING, FOLL OW UP FOR THYROID NODULES [id number] 03/02/2013 17:00:00 013 10:25:00 DIS Inpatient DEVON PHAN DO [facility] 4TH [id number] 05/02/2014 11:19:00 Document Registration [id number] 05/02/2014 11:18:00 Document Registration [id number] 05/02/2014 11:18:00 Document Registration [id number] 05/02/2014 11:18:00 Document Registration [id number] 05/02/2014 11:18:00 Document Registration [id number] 02/29/2012 10:30:00 Document Registration [id number] 02/02/2012 10:29:00 Document Registration [id number] 04/21/2011 08:04:00 Document Registration [id number] 03/23/2011 11:09:00 Document Registration [id number] 10/16/2010 14:45:00 Document Registration [id number] 09/25/2010 14:50:00 Document Registration [id number] 09/14/2010 16:00:00 Document Registration [id number] 06/23/2010 14:51:00 Document Registration [id number] 05/21/2010 16:08:00 Document Registration [id number] 10/09/2009 07:36:00 Document Registration [id number] 04/17/2009 16:00:00 Document Registration [id number] 02/25/2009 07:43:00 Document Registration [id number] 12/31/2008 07:45:00 Document Registration [id number] 12/14/2008 11:10:00 Document Registration [id number] 12/14/2008 11:04:00 Document Registration
[2019-11-02] MEDS ORDERED: LACTATED RINGERS 1,000 ML IV ONE (18:14)
--- NOTE | 2019-11-02 18:23 | ED General ---
General Stated Complaint: EXACERBATION Source of Information: Patient Exam Limitations: No Limitations History of Present Illness Date Seen by Provider: Nov 02, 2019 Time Seen by Provider: 18:04 Initial Comments Patient presents ER by private conveyance with chief complaint of intermittent muscle weakness all 4 extremities with a past couple months. She says last 2 days is gotten worse and she has hard time even standing on her own feet. She denies pain, fever nausea vomiting shortness of breath chest pain diarrhea dysuria or headache. She talked to Dr. Merino and he recommended she come out to be examined and observed overnight for potential recurrence of the Guillian [place] syndrome. Patient's not been exposed to any known sick contacts or had any travel recently. Patient was previously receiving Ozempic for adrenal fatigue not for diabetes. She denies a history of diabetes or coronary disease. She says she's no longer on the Ozempic. She does take tramadol and oxycodone as necess eleoonra for her fibromyalgia as well as diazepam, gabapentin and methylprednisolone 4 mg daily. 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 History Guillian wolf syndrome, hypertension, GERD, hyperlipidemia, iron deficiency anemia, fibromyalgia, hypothyroidism adrenal fatigue, asthma on chron ic steroid use. Echocardiogram [address] Jay: Normal ventricular size and systolic function with an EF of 60% and some fuentes tolic dysfunction. Allergies and Home Medications Allergies Coded Allergies: diethyltoluamide (Unverified Allergy, Intermediate, RASH, HIVES, RESPIRATORY, 09/14/10) RESCUE INHALER GOT PT TO HOSPITAL, BUT STATES IT WAS LIKE A BAD ASTHMA ATTACK Form.,Urea Cycle Disord (Unverified Allergy, Mild, RASH, 09/14/10) adhesive tape (Unverified Allergy, Mild, RASH, 09/14/10) erythromycin base (Unverified Allergy, Mild, RASH, 09/14/10) tetracycline (Unverified Allergy, Mild, 04/29/14) cefaclor (Verified Allergy, Unknown, 02/28/09) iodine (Verified Allergy, Unknown, 02/28/09) Uncoded Allergies: METAL (Adverse Reaction, Mild, RASH, 09/14/10) Home Medications Albuterol/Ipratropium 4 Gm Aero, 2 PUFF IH DAILY PRN for SHORTNESS OF BREATH, ( Reported) Armodafinil 200 Mg Tablet, 1 TAB PO DAILY, (Reported) Bupropion HCl 150 Mg Tablet.er, 150 MG PO DAILY, (Reported) Buspirone HCl 10 Mg Tablet, 10 MG PO BID, (Reported) Carvedilol 12.5 Mg Tablet, 6.25 MG PO BID, (Reported) TAKES 6.25MG TABS TWICE DAILY Cholecalciferol (Vitamin D3) 2,000 Unit Capsule, 2,000 UNIT PO DAILY, (Reported) Cyanocobalamin (Vitamin B-12) 1,000 Mcg Tablet, 1,000 MCG PO BID, (Reported) Cyclobenzaprine HCl 10 Mg Tablet, 10 MG PO DAILY PRN for MUSCLE SPASMS, (Reported) Diazepam 5 Mg Tablet, 10 MG PO HS PRN for ANXIETY, (Reported) TAKES 2 (5MG) TABLETS Fenofibrate Nanocrystallized 145 Mg Tablet, 145 MG PO DAILY, (Reported) Fluconazole 100 Mg Tablet, 100 MG PO DAILY, (Reported) Fluticasone Propionate 16 Gm [place].susp, 1 SPRAY NS BID PRN for allergies, (Rep orted) Gabapentin 300 Mg Capsule, 300 MG PO TID, (Reported) Ibuprofen 800 Mg Tablet, 800 MG PO BID PRN for PAIN-MILD, (Reported) Lactobacillus Acidophilus/Pect 1 Each Capsule, 2 EACH PO TIDWM Prescribed by: GILBERT RIVERA on 11/13/18711 Levocetirizine Dihydrochloride 5 Mg Tablet, 5 MG PO DAILY, (Reported) Levofloxacin 750 Mg Tablet, 750 MG PO DAILY Prescribed by: GILBERT RIVERA on 11/13/18711 Levothyroxine Sodium 125 Mcg Tablet, 125 MCG PO DAILY, (Reported) Liraglutide 0.6 Mg/0.1 Ml Pen.injctr, 0.6 MG SQ DAILY, (Reported) Methylprednisolone 4 Mg Tablet, 4 MG PO DAILY, (Reported) Methylprednisolone 4 Mg Tab, 4 MG PO DAILY PRN for inflammation, (Reported) as directed per dose pack Montelukast Sodium 10 Mg Tablet, 10 MG PO DAILY, (Reported) [place]-3 Fatty Acids/Fish Oil 1 Each Capsule, 3 CAP PO DAILY, (Reported) [place]-3 Fatty Acids/Fish Oil 1 Each Capsule, 2 EACH PO HS, (Reported) Omeprazole 20 Mg Capsule.dr, 20 MG PO DAILY, (Reported) Ropinirole HCl 3 Mg Tablet, 3 MG PO HS, (Reported) Spironolactone 25 Mg Tablet, 25 MG PO DAILY, (Reported) Tramadol HCl 50 Mg Tablet, 100 MG PO TID PRN for PAIN-MODERATE, (Reported) Trazodone HCl 150 Mg Tablet, 150 MG PO HS, (Reported) Vitamin A 8,000 Unit Capsule, 8,000 UNIT PO DAILY, (Reported) [[place] 100] 100 , 100 TAB PO DAILY, (Reported) Patient Home Medication List Home Medication List Reviewed: Yes Review of Systems Review of Systems Constitutional: No chills, No diaphoresis EENTM: No ear discharge, No hearing loss Respiratory: No cough, No dyspnea on exertion Cardiovascular: No chest pain, No edema, No Hx of Intervention Gastrointestinal: No abdominal pain, No constipation, No diarrhea, No nausea, No vomiting Genitourinary: No discharge, No dysuria Musculoskeletal: No back pain, No joint pain Skin: No pruritus, No rash Immunological/Allergic: see HPI, food allergy All Other Systems Reviewed Negative Unless Noted: Yes Past Cvglwen-Rjyujr-Ypdsrp Hx Patient Social History Alcohol Use: Denies Use Recreational Drug Use: No Smoking Status: Current Everyday Smoker Type Used: Cigarettes 2nd Hand Smoke Exposure: No Recent Foreign Travel: No Contact w/Someone Who Travel: No Recent Hopitalizations: Yes Immunizations Up To Date Date of Pneumonia Vaccine: Jan 24, 2009 Date of Influenza Vaccine: Feb 19, 2010 Seasonal Allergies Seasonal Allergies: No Past Medical History Surgeries: Yes (carpal tunnel, trigger finger, r torn meniscus, plantar fasciotomy, ) Gallbladder, Hysterectomy, Orthopedic, Tubal Ligation Respiratory: Yes Asthma Cardiac: Yes Hypertension Neurological: Yes (guillian barre) Reproductive Disorders: No Female Reproductive Disorders: Denies Sexually Transmitted Disease: No Gastrointestinal: Yes Gastroesophageal Reflux, Gall Bladder Disease, Irritable Bowel Musculoskeletal: Yes (osteo and rheumatoid) Arthritis, Fibromyalgia, Rheumatoid Arthritis Endocrine: Yes (adrenal fatigue, pituitary dysfunction) Hypothyroidsim Loss of Vision: Denies Hearing Impairment: Denies Cancer: No Psychosocial: No Integumentary: Yes Eczema Blood Disorders: No Physical Exam Vital Signs Vital Signs - First Documented 11/02/19 18:30 Temp 37.0 Pulse 71 Resp 18 B/P (MAP) 161/93 (115) Pulse Ox 94 O2 Delivery Room Air Capillary Refill : Height, Weight, BMI Height: 5'2.00" Weight: 174lbs. 0.0oz. 78.970182io; 31.8 BMI Method:Stated General Appearance: Chronically ill, Mild Distress, Obese Eyes: Bilateral Eye Normal Inspection, Bilateral Eye PERRL, Bilateral Eye EOMI HEENT: PERRL/EOMI, TMs Normal, Normal ENT Inspection, Pharynx Normal, Moist Mucous Membranes Neck: Full Range of Motion, Normal Inspection, Non Tender Respiratory: Lungs Clear, Normal Breath Sounds, No Accessory Muscle Use, No Respiratory Distress Cardiovascular: Regular Rate, Rhythm, No Edema, Normal Peripheral Pulses Gastrointestinal: Normal Bowel Sounds, No Organomegaly, Non Tender, Soft Extremity: Normal Capillary Refill, Normal Inspection, No Pedal Edema Neurologic/Psychiatric: Alert, Oriented x3, No Motor/Sensory Deficits, Normal Mood/Affect, 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 Norm as Tested Reflexes: 1+ Bicep (R), 1+ Bicep (L); 0 Knee (R), 0 Knee (L) Skin: Warm/Dry, Ecchymosis Procedures/Interventions Discussed Risk,Benefits: Yes Patient Consents: Yes Position: Lying, L4-5, Left Sterile Technique: Yes Opening Pressure: 21 Fluid Color: bloody then straw Size of Disposal Tray Used: Adult Progress/Results/Core Measures Suspected Sepsis SIRS Temperature: Pulse: Respiratory Rate: Laboratory Tests 11/02/19 18:20: White Blood Count 7.6 Blood Pressure / Mean: Laboratory Tests 11/02/19 18:20: Creatinine 0.80, INR Comment 1.0, Platelet Count 316, Total Bilirubin 0.3 Results/Orders Lab Results Laboratory Tests Test 11/02/19 18:20 11/02/19 18:30 11/02/19 20:00 Range/Units White Blood Count 7.6 4.3-11.0 10^3/uL Red Blood Count 4.89 4.35-5.85 10^6/uL Hemoglobin 13.5 11.5-16.0 G/DL Hematocrit 41 35-52 % Mean Corpuscular Volume 84 80-99 FL Mean Corpuscular Hemoglobin 28 25-34 PG Mean Corpuscular Hemoglobin Concent 33 32-36 G/DL Red Cell Distribution Width 13.6 10.0-14.5 % Platelet Count 316 130-400 10^3/uL Mean Platelet Volume 9.8 7.4-10.4 FL Neutrophils (%) (Auto) 65 42-75 % Lymphocytes (%) (Auto) 27 12-44 % Monocytes (%) (Auto) 6 0-12 % Eosinophils (%) (Auto) 1 0-10 % Basophils (%) (Auto) 1 0-10 % Neutrophils # (Auto) 4.9 1.8-7.8 X 10^3 Lymphocytes # (Auto) 2.1 1.0-4.0 X 10^3 Monocytes # (Auto) 0.5 0.0-1.0 X 10^3 Eosinophils # (Auto) 0.1 0.0-0.3 10^3/uL Basophils # (Auto) 0.1 0.0-0.1 10^3/uL Erythrocyte Sedimentation Rate 1 0-30 MM/HR Prothrombin Time 13.2 12.2-14.7 SEC INR Comment 1.0 0.8-1.4 Activated Partial Thromboplast Time 24 24-35 SEC Sodium Level 140 135-145 MMOL/L Potassium Level 4.0 3.6-5.0 MMOL/L Chloride Level 106 98-107 MMOL/L Carbon Dioxide Level 25 21-32 MMOL/L Anion Gap 9 5-14 MMOL/L Blood Urea Nitrogen 17 7-18 MG/DL Creatinine 0.80 0.60-1.30 MG/DL Estimat Glomerular Filtration Rate > 60 BUN/Creatinine Ratio 21 Glucose Level 124 H 70-105 MG/DL Calcium Level 9.3 8.5-10.1 MG/DL Corrected Calcium 9.1 8.5-10.1 MG/DL Magnesium Level 1.9 1.6-2.4 MG/DL Total Bilirubin 0.3 0.1-1.0 MG/DL Aspartate Amino Transf (AST/SGOT) 16 5-34 U/L Alanine Aminotransferase (ALT/SGPT) 14 0-55 U/L Alkaline Phosphatase 41 40-136 U/L Total Creatine Kinase 64 29-168 U/L Troponin I < 0.028 <0.028 NG/ML C-Reactive Protein High Sensitivity 0.04 0.00-0.50 MG/DL B-Type Natriuretic Peptide < 10.0 <100.0 PG/ML Total Protein 6.4 6.4-8.2 GM/DL Albumin 4.2 3.2-4.5 GM/DL Thyroid Stimulating Hormone (TSH) 0.25 L 0.35-4.94 UIU/ML Free Thyroxine 1.12 0.70-1.48 NG/DL Urine Color YELLOW Urine Clarity CLEAR Urine pH 7.0 5-9 Urine Specific [place] 1.010 L 1.016-1.022 Urine Protein NEGATIVE NEGATIVE Urine Glucose (UA) NEGATIVE NEGATIVE Urine Ketones NEGATIVE NEGATIVE Urine Nitrite NEGATIVE NEGATIVE Urine Bilirubin NEGATIVE NEGATIVE Urine Urobilinogen 0.2 < = 1.0 MG/DL Urine Leukocyte Esterase NEGATIVE NEGATIVE Urine RBC (Auto) NEGATIVE NEGATIVE Urine RBC NONE /HPF Urine WBC NONE /HPF Urine Squamous Epithelial Cells NONE /HPF Urine Crystals NONE /LPF Urine Bacteria NEGATIVE /HPF Urine Casts NONE /LPF Urine Mucus NEGATIVE /LPF Urine Culture Indicated NO Urine Opiates Screen NEGATIVE NEGATIVE Urine Oxycodone Screen NEGATIVE NEGATIVE Urine Methadone Screen NEGATIVE NEGATIVE Urine Propoxyphene Screen NEGATIVE NEGATIVE Urine Barbiturates Screen NEGATIVE NEGATIVE Ur Tricyclic Antidepressants Screen NEGATIVE NEGATIVE Urine Phencyclidine Screen NEGATIVE NEGATIVE Urine Amphetamines Screen NEGATIVE NEGATIVE Urine Methamphetamines Screen NEGATIVE NEGATIVE Urine Benzodiazepines Screen POSITIVE H NEGATIVE Urine Cocaine Screen NEGATIVE NEGATIVE Urine Cannabinoids Screen NEGATIVE NEGATIVE CSF Tube Number 4 CSF Appearance SLT CLDY CSF Color COLORLESS CSF WBC 3 0-5 CELLS CSF RBC 1950 H 0-0 CELLS CSF Lymphocytes % CSF Mononuclear WBCs % CSF Polynuclear WBCs % CSF Glucose 63 50-80 MG/DL CSF Total Protein 43 H 15-40 MG/DL My Orders Orders - LAQU[place]APILLO J Chest 1 View, Ap/Pa Only (11/02/19 18:14) BNP (11/02/19 18:14) Cbc With Automated Diff (11/02/19 18:14) Comprehensive Metabolic Panel (11/02/19 18:14) Hs C Reactive Protein (11/02/19 18:14) Erythrocyte Sedimentation Rate (11/02/19 18:14) Drug Screen Stat (Urine) (11/02/19 18:14) Magnesium (11/02/19 18:14) Protime With Inr (11/02/19 18:14) Partial Thromboplastin Time (11/02/19 18:14) Thyroid Stimulating Hormone (11/02/19 18:14) Ua Culture If Indicated (11/02/19 18:14) Troponin I (11/02/19 18:14) Ed Iv/Invasive Line Start (11/02/19 18:14) Lactated Ringers (Lr 1000 Ml Iv Solution (11/02/19 18:14) Continuous Ekg Monitoring (11/02/19 18:14) Ekg Tracing (11/02/19 18:14) Thiamine Vitamin B1 (11/02/19 18:28) Tick Panel With Lyme Eia (11/02/19 18:28) Csf Culture (11/02/19 18:28) Csf Cell Count (11/02/19 18:28) Csf Total Protein (11/02/19 18:28) Csf Standard Panel (11/02/19 18:28) Csf Glucose (11/02/19 18:28) Creatine Kinase (11/02/19 18:43) Ct Head Wo (11/02/19 18:55) Free T4 (Free Thyroxine) (11/02/19 19:17) Medications Given in ED Current Medications Medications Dose Ordered Sig/Niyah Route Start Time Stop Time Status Last Admin Dose Admin Lactated Ringer's 1,000 ml @ 0 mls/hr Q0M ONCE IV 11/02/19 18:14 11/02/19 18:17 DC 11/02/19 18:26 999 MLS/HR Vital Signs/I&O 11/02/19 11/02/19 18:30 21:09 Temp 37.0 37.0 Pulse 71 59 Resp 18 17 B/P (MAP) 161/93 (115) 146/89 (115) Pulse Ox 94 97 O2 Delivery Room Air Room Air Capillary Refill : Progress Note #1: Time: 18:27 Progress Note We'll start with labs including CT of the head looking for normal pressure hydrocephalus, Lyme disease and thiamine level. Polymyositis related to chronic steroid use? CRP, ESR, LFTs and we'll get a TSH level. Plan CSF studies looking for cell counts and protein if CT head unremarkable. Also plan to do a urinalysis EKG chest x-ray troponin and BNP. Because of the chronicity botulism seems unlikely and she also does not have constipation. Her symptoms are peripheral noncentral so less likely Lambert-Eato n, myasthenia gravis. Polymyositis? Plan to get a CRP, ESR and CPK. We'll check thiamine for work encephalitis but she denies drinking alcohol. Progress Note #2: Time: 21:20 Progress Note Protein not significantly increased and WBC normal. RBCs accounted for in the bloody tap. Gram stain failed to isolate bacteria. PT transferred to the medical floor. ECG Initial ECG Impression Date: Nov 02, 2019 Initial ECG Impression Time: 18:27 Initial ECG Rate: 60 Initial ECG Rhythm: Normal Sinus Initial ECG Intervals: Normal Initial ECG Impression: Normal, Nonspecific Changes Comment Normal sinus rhythm without likely relevant ST changes. Left ventricular hypertrophy probably related to hypertension. Diagnostic Imaging Diagonstic Imaging: Xray Plain Films/CT/US/NM/MRI: chest (1v) Comments NAME: BÁRBARA BRENNAN MED REC#: [id number] PT STATUS: REG ER : 1955 PHYSICIAN: PILLO COELHO MD ADMIT DATE: 11/02/19/ER Draft Date of Exam:11/02/19 CHEST 1 VIEW, AP/PA ONLY INDICATION: Headaches. Right upper quadrant pain. Comparison with 11/10/2018. FINDINGS: Portable chest shows the lungs to be well-aerated and clear. Heart is not enlarged. No pulmonary edema or hilar adenopathy. No bony abnormalities. IMPRESSION: Negative portable chest Dictated on workstation # [id number] Dict: 11/02/191914 Trans: 11/02/191919 [facility] [id number] Interpreted by: NISSA JOHNSON MD Electronically signed by: Reviewed: Reviewed by Me Diagonstic Imaging: CT (w/o) Plain Films/CT/US/NM/MRI: head Comments NAME: BÁRBARA BRENNAN MED REC#: [id number] PT STATUS: REG ER : 1955 PHYSICIAN: PILLO COELHO MD ADMIT DATE: 11/02/19/ER Draft Date of Exam:11/02/19 CT HEAD WO PROCEDURE: CT head without contrast. TECHNIQUE: Multiple contiguous axial images were obtained through the brain without the use of intravenous contrast. Auto Exposure Controls were utilized during the CT exam to meet ALARA standards for radiation dose reduction. INDICATION: Headaches, GB syndrome. EXAMINATION: CT brain without contrast 11/02/2019 FINDINGS: Multiple axial images of the brain without contrast. There is no evidence for acute hemorrhage or infarct. There is no mass, mass effect, midline shift or hydrocephalus. The paranasal sinuses and mastoid air cells demonstrate no acute abnormality. IMPRESSION: No acute intracranial process. Please note, comparison was made to MRI brain from 09/15/2010 with findings similar to that examination. Dictated on workstation # [id number] Dict: 11/02/191925 Trans: 11/02/191930 [facility] [id number] Interpreted by: THERESE DIEGO MD Electronically signed by: Reviewed: Reviewed by Me Departure Communication (Admissions) Time/Spoke to Admitting Phy: 20:30 Discussed the case with Dr. Purvis and she agrees to observe the patient and follow the CSF studies. She would like PT OT to evaluate the patient as well as the patient to be evaluated for physical rehabilitation. 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 Referrals: DEVON MERINO DO (PCP/Family) Primary Care Physician Copy Copies To 1: DEVON MERINO TITUS J Nov 02, 2019 18:23
[2019-11-02 18:27] LABS: BASOPHILS # (AUTO) 0.1 10^3/uL (0.0-0.1); BASOPHILS % (AUTO) 1 % (0-10); EOSINOPHILS # (AUTO) 0.1 10^3/uL (0.0-0.3); EOSINOPHILS % (AUTO) 1 % (0-10); HEMATOCRIT 41 % (35-52); HEMOGLOBIN 13.5 G/DL (11.5-16.0); LYMPHOCYTES # (AUTO) 2.1 X 10^3 (1.0-4.0); LYMPHOCYTES % (AUTO) 27 % (12-44); MEAN CORPUSCULAR HEMOGLOBIN 28 PG (25-34); MEAN CORPUSCULAR HGB CONC 33 G/DL (32-36); MEAN CORPUSCULAR VOLUME 84 FL (80-99); MEAN PLATELET VOLUME 9.8 FL (7.4-10.4); MONOCYTES # (AUTO) 0.5 X 10^3 (0.0-1.0); MONOCYTES % (AUTO) 6 % (0-12); NEUTROPHILS # (AUTO) 4.9 X 10^3 (1.8-7.8); NEUTROPHILS % (AUTO) 65 % (42-75); PLATELET COUNT 316 10^3/uL (130-400); RED CELL DISTRIBUTION WIDTH 13.6 % (10.0-14.5); WHITE BLOOD COUNT 7.6 10^3/uL (4.3-11.0)
[2019-11-02 18:37] LABS: PROTHROMBIN TIME PATIENT 13.2 SEC (12.2-14.7)
[2019-11-02 18:42] LABS: ALBUMIN 4.2 GM/DL (3.2-4.5)
[2019-11-02 18:43] LABS: CHLORIDE 106 MMOL/L (98-107); SODIUM 140 MMOL/L (135-145)
[2019-11-02 18:44] LABS: CALCIUM 9.3 MG/DL (8.5-10.1)
[2019-11-02 18:45] LABS: GLUCOSE 124 MG/DL (70-105); TOTAL PROTEIN 6.4 GM/DL (6.4-8.2)
[2019-11-02 18:46] LABS: CARBON DIOXIDE 25 MMOL/L (21-32)
[2019-11-02 18:47] LABS: BILIRUBIN,URINE NEGATIVE (NEGATIVE); CLARITY,URINE CLEAR; COLOR,URINE YELLOW; GLUCOSE, URINE (UA) NEGATIVE (NEGATIVE); KETONES,URINE NEGATIVE (NEGATIVE); LEUKOCYTE ESTERASE ,URINE NEGATIVE (NEGATIVE); NITRITE,URINE NEGATIVE (NEGATIVE); PROTEIN,URINE NEGATIVE (NEGATIVE)
[2019-11-02 18:47] LABS: BILIRUBIN,TOTAL 0.3 MG/DL (0.1-1.0)
[2019-11-02 18:48] LABS: ALKALINE PHOSPHATASE 41 U/L (40-136)
[2019-11-02 18:49] LABS: ERYTHROCYTE SEDIMENTATION RATE 1 MM/HR (0-30); GFR ESTIMATED > 60
[2019-11-02 18:50] LABS: BUN/CREATININE RATIO 21
[2019-11-02 18:52] LABS: ALANINE AMINOTRANSFERASE 14 U/L (0-55); MAGNESIUM 1.9 MG/DL (1.6-2.4)
[2019-11-02 18:55] LABS: BACTERIA,URINE NEGATIVE /HPF
[2019-11-02 19:00] LABS: AMPHETAMINE SCREEN, URINE NEGATIVE (NEGATIVE); BARBITURATE SCREEN URINE NEGATIVE (NEGATIVE); BENZODIAZEPINES SCREEN URINE POSITIVE (NEGATIVE); CANNABINOID SCREEN, URINE NEGATIVE (NEGATIVE); COCAINE SCREEN URINE NEGATIVE (NEGATIVE); METHADONE STAT NEGATIVE (NEGATIVE); METHAMPHETAMINE SCREEN URINE S NEGATIVE (NEGATIVE); OPIATE SCREEN URINE NEGATIVE (NEGATIVE); OXYCODONE STAT NEGATIVE (NEGATIVE); PROPOXYPHENE STAT NEGATIVE (NEGATIVE); TRICYCLIC ANTIDEPRESSANTS SCRE NEGATIVE (NEGATIVE)
--- NOTE | 2019-11-02 19:13 | NUR ---
Report from NAYELI Draper
--- NOTE | 2019-11-02 19:21 | Diagnostic Imaging Report ---
INDICATION: Headaches. Right upper quadrant pain. Comparison with 11/10/2018. FINDINGS: Portable chest shows the lungs to be well-aerated and clear. Heart is not enlarged. No pulmonary edema or hilar adenopathy. No bony abnormalities. IMPRESSION: Negative portable chest Dictated by: Dictated on workstation # [id number]
--- NOTE | 2019-11-02 19:32 | Diagnostic Imaging Report ---
PROCEDURE: CT head without contrast. TECHNIQUE: Multiple contiguous axial images were obtained through the brain without the use of intravenous contrast. Auto Exposure Controls were utilized during the CT exam to meet ALARA standards for radiation dose reduction. INDICATION: Headaches, GB syndrome. EXAMINATION: CT brain without contrast 11/02/2019 FINDINGS: Multiple axial images of the brain without contrast. There is no evidence for acute hemorrhage or infarct. There is no mass, mass effect, midline shift or hydrocephalus. The paranasal sinuses and mastoid air cells demonstrate no acute abnormality. IMPRESSION: No acute intracranial process. Please note, comparison was made to MRI brain from 09/15/2010 with findings similar to that examination. Dictated by: Dictated on workstation # [id number]
[2019-11-02 20:30] LABS: APPEARANCE,CSF SLT CLDY; COLOR,CSF COLORLESS
[2019-11-02 20:36] LABS: RED BLOOD CELL,CSF 1950 CELLS (0-0); WHITE BLOOD CELL,CSF 3 CELLS (0-5)
[2019-11-02 20:37] LABS: CSF TUBE NUMBER 4
[2019-11-02 20:54] LABS: CSF GLUCOSE 63 MG/DL (50-80); CSF TOTAL PROTEIN 43 MG/DL (15-40)
--- NOTE | 2019-11-02 21:25 | NUR ---
"BÁRBARA BRENNAN admitted to room 417-1, with an admitting diagnosis of PHYSICAL DEBILITY | FATIGUE | HX AIDP | SUSPECTED CIDP, on 11/02/19 from ED via STRETCHER, accompanied by STAFF.BÁRBARA BRENNAN introduced to surroundings, call light, bed controls, phone, TV, temperature control, lights, meal times, smoking policy, visitor policy, side rail policy, bathrooms and showers. Patient Rights given to patient in the handbook. BÁRBARA BRENNAN verbalizes understanding that [facility] is not responsible for the loss or damage to any personal effects or valuables that are kept in the patients posession during their hospitalization. The following Patient Care Plans were discussed with the PATIENT: Discharge Planning, PHYSICAL DEBILITY,FATIGUE, and CIDP. BÁRBARA BRENNAN verbalizes understanding of Interdisciplinary Patient Education. Patient and/or family were informed about the Rapid Response Team and its purpose."
[2019-11-02 21:26] VITALS: BP 127/77
[2019-11-02] MEDS ORDERED: ONDANSETRON 4 MG/2 ML (SDV) Z0FRAN IV PRN (22:15)
[2019-11-02] MEDS ORDERED: ACETAMINOPHEN 500 MG TAB (TYLENOL) PO PRN (22:15)
[2019-11-02] MEDS ORDERED: oxyCODONE/APAP 5/325MG (PERCOCET 5) TABLET PO PRN (22:30)
[2019-11-02] MEDS ORDERED: IBUPROFEN 800 MG (MOTRIN) TAB PO PRN (22:30)
[2019-11-02] MEDS ORDERED: ANTACID SUSP 30 ML UDC (MYLANTA) PO PRN (22:30)
[2019-11-02] MEDS: LACTATED RINGERS 1,000 ML IV SCH (23:27)
[2019-11-02] MEDS ORDERED: RT-ALBUTEROL SULF 2.5 MG/3 ML PRE-MIX VIAL INH PRN (23:45)
[2019-11-03 00:28] VITALS: BP 134/83
[2019-11-03 04:00] VITALS: BP 128/68
[2019-11-03] MEDS ORDERED: LEVOTHYROXINE 125 MCG (LEVOTHROID) TABLET PO SCH (06:30)
[2019-11-03 06:35] LABS: BASOPHILS # (AUTO) 0.1 10^3/uL (0.0-0.1); BASOPHILS % (AUTO) 1 % (0-10); EOSINOPHILS # (AUTO) 0.1 10^3/uL (0.0-0.3); EOSINOPHILS % (AUTO) 2 % (0-10); HEMATOCRIT 39 % (35-52); HEMOGLOBIN 12.6 G/DL (11.5-16.0); LYMPHOCYTES # (AUTO) 3.3 X 10^3 (1.0-4.0); LYMPHOCYTES % (AUTO) 43 % (12-44); MEAN CORPUSCULAR HEMOGLOBIN 28 PG (25-34); MEAN CORPUSCULAR HGB CONC 33 G/DL (32-36); MEAN CORPUSCULAR VOLUME 85 FL (80-99); MEAN PLATELET VOLUME 9.9 FL (7.4-10.4); MONOCYTES # (AUTO) 0.6 X 10^3 (0.0-1.0); MONOCYTES % (AUTO) 8 % (0-12); NEUTROPHILS # (AUTO) 3.5 X 10^3 (1.8-7.8); NEUTROPHILS % (AUTO) 47 % (42-75); PLATELET COUNT 288 10^3/uL (130-400); RED CELL DISTRIBUTION WIDTH 13.6 % (10.0-14.5); WHITE BLOOD COUNT 7.6 10^3/uL (4.3-11.0)
[2019-11-03 06:51] LABS: ALANINE AMINOTRANSFERASE 11 U/L (0-55); ALBUMIN 3.7 GM/DL (3.2-4.5); ALKALINE PHOSPHATASE 37 U/L (40-136); BILIRUBIN,TOTAL 0.3 MG/DL (0.1-1.0); BUN/CREATININE RATIO 20; CARBON DIOXIDE 27 MMOL/L (21-32); CHLORIDE 106 MMOL/L (98-107); CREATININE SERUM 0.71 MG/DL (0.60-1.30); GFR ESTIMATED > 60; GLUCOSE 88 MG/DL (70-105); POTASSIUM 3.9 MMOL/L (3.6-5.0); SODIUM 141 MMOL/L (135-145); TOTAL PROTEIN 5.6 GM/DL (6.4-8.2)
[2019-11-03 07:45] VITALS: BP 124/82
[2019-11-03] MEDS ORDERED: amLODIPine 2.5MG (NORVASC) TAB PO SCH (09:00)
[2019-11-03] MEDS ORDERED: PANTOPRAZOLE 40 MG (PROTONIX) TAB PO SCH (09:00)
[2019-11-03] MEDS ORDERED: GABAPENTIN 300 MG (NEURONTIN) CAP PO SCH (09:00)
[2019-11-03] MEDS ORDERED: buPROPion SR 150 MG (WELLBUTRIN SR) TAB PO SCH (09:00)
[2019-11-03] MEDS: LACTATED RINGERS 1,000 ML IV SCH (09:59)
--- NOTE | 2019-11-03 10:08 | NUR ---
IRF Evaluation Order received to evaluate patient for the ARU. Chart review complete and findings discussed with Dr. Shepard - patient accepted. Met with patient to discuss details or rehabilitation program. Patient is familiar with inpatient rehab as she has been a patient in the past. Patient is agreeable to admission. Thank you for this referral.
[2019-11-03] MEDS ORDERED: CHOL20002 PO (10:10)
[2019-11-03] MEDS ORDERED: MAGN400T39 PO (10:10)
[2019-11-03] MEDS ORDERED: AMLO2.5T4 PO (10:10)
[2019-11-03] MEDS ORDERED: CYAN500011 PO (10:10)
[2019-11-03] MEDS ORDERED: LEVO-131 PO (10:10)
[2019-11-03] MEDS ORDERED: PEG15DRO9 OU (10:10)
[2019-11-03] MEDS ORDERED: OMEG-82 PO ×2 (10:10)
[2019-11-03] MEDS ORDERED: GBPN600T PO (10:44)
[2019-11-03] MEDS ORDERED: NF-METHYLP PO (10:44)
[2019-11-03 11:00] VITALS: BP 124/82
--- NOTE | 2019-11-03 11:00 | NUR ---
TO REHAB PER W/C. REPORT GIVEN TO VIVEK TYLER.
--- NOTE | 2019-11-03 11:00 | NUR ---
BÁRBARA BRENNAN demonstrates understanding of discharge instructions and accurately returns instructions upon questioning. Copy of Post-Discharge Instructions given to WANDY TYLER. BÁRBARA BRENNAN is able to manage continuing needs after discharge WITH ASSISTANCE OF REHAB. Patients belongings returned to PT. Patient discharged from [facility] on 11/03/19 at 11:00. BÁRBARA BRENNAN left floor via W/C accompanied by STAFF PT TO REHAB.
[2019-11-03] MEDS ORDERED: CHOL10002 PO (11:23)
--- NOTE | 2019-11-03 11:25 | NUR ---
SPOKE WITH THE PT (SHE HAD HER MEDS IN AN ORGANIZER) WENT THRU THE EXT MED HISTORY AND CALLED DIFFERENT MAIL ORDER SHE HAS USED TO COMPLETE THE MED REC THE FOLLOWING MEDICATIONS THE PT HAS IN HER ORGANIZER AND SAYS SHE TAKES BUT HER CURRENT PHARMACY HAS NOT FILLED THEM. AT THE START OF 2019 SHE SWITCHED INSURANCE COMPANIES- BUT IN 2019 SHE HAD TO USE MAIL ORDER. I CALLED THE MAIL ORDER ([facility] [employer]) AND THERE SYSTEMS COULD NOT GO BACK INTO 2019 TO TELL ME LAST FILL DATES. REGARDLESS OF THE FILL DATES THESE MEDICATIONS ARE PAST DUE FOR REFILLS: TRAMADOL 50 ARMODAFINIL 200MG SPIRONOLACTONE 25MG SINGULAR 10MG BUSPAR 10MG WELLBUTRIN ER 12HR 150MG TRAZODONE 150MG DIAZEPAM 5MG ROPINIROLE 3MG CHRISTIN AND I WENT THRU THE MED ORGANIZERS TO IDENTIFY THE MEDICATIONS AND STRENGTHS. ALL MEDICATIONS NOT LISTED ABOVE ARE ON THE EXT MED HISTORY OTC MEDS: VIT A VIT D3 MAG OX 400 VIT B12 FISH OIL W/ VIT D DRY EYE DROPS
--- NOTE | 2019-11-03 12:02 | NUR ---
CM/SS: Visited with pt as to plan for discharge - along with August, from Inpatient Rehab Plan: Pt will be moved to Inpatient Rehab Unit today Summary: Pt does report that she has had alot going on recently. Pt has been a Inpatient Rehab before, and that recently things got really bad as both her arms and legs were weak and she had difficulty with walking. Pt realistic about the plan of going to rehab and getting stronger. Plan is for pt to go to rehab on today. Pt verbalized understanding.
--- NOTE | 2019-11-03 14:13 | Discharge Summary ---
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 Her symptoms of been going on for a couple months. 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 She is being worked up by her primary care provider, Pauline Merino. She has not seen a neurologist. She reports that they have been considering giving her IVIG. Her lab and imaging workup was unremarkable. She has been on chronic steroids and may have secondary proximal muscle wasting. She was evaluated by PT/OT and deemed to be a candidate for inpatient rehabilitation and she was transferred to the rehabilitation floor. I would recommend a formal neurology consultation for neurologic evaluation after discharge. Labs and Pending Lab Test: Laboratory Tests 11/02/19 18:20: White Blood Count 7.6, Red Blood Count 4.89, Hemoglobin 13.5, Hematocrit 41, Mean Corpuscular Volume 84, Mean Corpuscular Hemoglobin 28, Mean Corpuscular Hemoglobin Concent 33, Red Cell Distribution Width 13.6, Platelet Count 316, M candace Platelet Volume 9.8, Neutrophils (%) (Auto) 65, Lymphocytes (%) (Auto) 27, Monocytes (%) (Auto) 6, Eosinophils (%) (Auto) 1, Basophils (%) (Auto) 1, Neutrophils # (Auto) 4.9, Lymphocytes # (Auto) 2.1, Monocytes # (Auto) 0.5, Eosinophils # (Auto) 0.1, Basophils # (Auto) 0.1, Erythrocyte Sedimentation Rate 1, Prothrombin Time 13.2, INR Comment 1.0, Activated Partial Thromboplast Time 24, Sodium Level 140, Potassium Level 4.0, Chloride Level 106, Carbon Dioxide Level 25, Anion Gap 9, Blood Urea Nitrogen 17, Creatinine 0.80, Estimat Glomerular Filtration Rate > 60, BUN/Creatinine Ratio 21, Glucose Level 124H, Ca lcium Level 9.3, Corrected Calcium 9.1, Magnesium Level 1.9, Total Bilirubin 0.3, Aspartate Amino Transf (AST/SGOT) 16, Alanine Aminotransferase (ALT/SGPT) 14, Alkaline Phosphatase 41, Total Creatine Kinase 64, Troponin I < 0.028, C- Reactive Protein High Sensitivity 0.04, B-Type Natriuretic Peptide < 10.0, Total Protein 6.4, Albumin 4.2, Vitamin B1 Level [Pending], Thyroid Stimulating Hormone (TSH) 0.25L, Free Thyroxine 1.12, Lyme Disease Screen IgG & IgM Ab [Pending], Lyme Antibody Interpretation [Pending], Ehrlichia chaffeensis IgG Antibody [Pending], Ehrlichia chaffeensis IgM Antibody [Pending], Spotted Fever Group IgG Antibody [Pending], Spotted Fever Group IgM Antibody [Pending], [place] Antibody [Pending] 11/02/19 18:30: Urine Color YELLOW, Urine Clarity CLEAR, Urine pH 7.0, Urine Specific [place] 1.010L, Urine Protein NEGATIVE, Urine Glucose (UA) NEGATIVE, Urine Ketones NEGATIVE, Urine Nitrite NEGATIVE, Urine Bilirubin NEGATIVE, Urine Urobilinogen 0.2, Urine Leukocyte Esterase NEGATIVE, Urine RBC (Auto) NEGATIVE, Urine RBC NONE, Urine WBC NONE, Urine Squamous Epithelial Cells NONE, Urine Crystals NONE, Urine Bacteria NEGATIVE, Urine Casts NONE, Urine Mucus NEGATIVE, Urine Culture Indicated NO, Urine Opiates Screen NEGATIVE, Urine Oxycodone Screen NEGATIVE, Urine Methadone Screen NEGATIVE, Urine Propoxyphene Screen NEGATIVE, Urine Barbiturates Screen NEGATIVE, Ur Tricyclic Antidepressants Screen NEGATIVE, Urine Phencyclidine Screen NEGATIVE, Urine Amphetamines Screen NEGATIVE, Urine Methamphetamines Screen NEGATIVE, Urine Benzodiazepines Screen POSITIVEH, Urine Cocaine Screen NEGATIVE, Urine Cannabinoids Screen NEGATIVE 11/02/19 20:00: CSF Tube Number 4, CSF Appearance SLT CLDY, CSF Color COLORLESS, CSF WBC 3, CSF RBC 1950H, CSF Lymphocytes , CSF Mononuclear WBCs , CSF Polynuclear WBCs , CSF Glucose 63, CSF Total Protein 43H, CSF Albumin [Pending] 11/03/19 05:55: White Blood Count 7.6, Red Blood Count 4.56, Hemoglobin 12.6, Hematocrit 39, Mean Corpuscular Volume 85, Mean Corpuscular Hemoglobin 28, Mean Corpuscular Hemoglobin Concent 33, Red Cell Distribution Width 13.6, Platelet Count 288, M candace Platelet Volume 9.9, Neutrophils (%) (Auto) 47, Lymphocytes (%) (Auto) 43, Monocytes (%) (Auto) 8, Eosinophils (%) (Auto) 2, Basophils (%) (Auto) 1, Neutrophils # (Auto) 3.5, Lymphocytes # (Auto) 3.3, Monocytes # (Auto) 0.6, Eosinophils # (Auto) 0.1, Basophils # (Auto) 0.1, Sodium Level 141, Potassium Level 3.9, Chloride Level 106, Carbon Dioxide Level 27, Anion Gap 8, Blood Urea Nitrogen 14, Creatinine 0.71, Estimat Glomerular Filtration Rate > 60, BUN/Creatinine Ratio 20, Glucose Level 88, Calcium Level 9.0, Corrected Calcium 9.2, Total Bilirubin 0.3, Aspartate Amino Transf (AST/SGOT) 14, Alanine Aminotransferase (ALT/SGPT) 11, Alkaline Phosphatase 37L, Total Protein 5.6L, Albumin 3.7 Home Meds Active Reported Vitamin D3 (Cholecalciferol (Vitamin D3)) 25 Mcg Tablet 50 Mcg PO DAILY Gabapentin 600 Mg Tablet 600 Mg PO BID LAST FILLED 06-26-2019 #90/45 DAY SUPPLY Medrol Dose pack (Methylprednisolone) 4 Mg Tab 4-8 Mg PO DAILY PRN 6 Days as directed per dose pack Visine Dry Eye Relief Drop (Peg 400/Hypromellose/Glycerin) 15 Ml Drops 2 Drops OU PRN PRN Magnesium (Magnesium Oxide) 400 Mg Tablet 400 Mg PO DAILY Amlodipine Besylate 2.5 Mg Tablet 2.5 Mg PO DAILY Euthyrox (Levothyroxine Sodium) 125 Mcg Tablet 125 Mcg PO DAILY Fish Oil + D3 Softgel ([place]-3S/Dha/Epa/Fish Oil/D3) 1 Each Capsule 3 Each PO DAILY Fish Oil + D3 Softgel ([place]-3S/Dha/Epa/Fish Oil/D3) 1 Each Capsule 2 Each PO HS Vitamin B-12 (Cyanocobalamin (Vitamin B-12)) 5,000 Mcg Capsule 5,000 Mcg PO DAILY Fluticasone Propionate 16 Gm [place].susp 1 [place] NS BID PRN Armodafinil 200 Mg Tablet 200 Mg PO DAILY Fluconazole 100 Mg Tablet 100 Mg PO DAILY Buspirone HCl 10 Mg Tablet 10 Mg PO BID Levocetirizine Dihydrochloride 5 Mg Tablet 5 Mg PO DAILY Vitamin A 8,000 Unit Capsule 8,000 Unit PO DAILY Tramadol HCl 50 Mg Tablet 50 Mg PO BID PRN Aldactone (Spironolactone) 25 Mg Tablet 25 Mg PO DAILY Omeprazole 20 Mg Capsule.dr 20 Mg PO DAILY Diazepam 5 Mg Tablet 5-10 Mg PO HS PRN Ibuprofen 800 Mg Tablet 800 Mg PO BID PRN Bupropion HCl Sr (Bupropion HCl) 150 Mg Tablet.er 150 Mg PO BID Ropinirole HCl 3 Mg Tablet 3 Mg PO HS Trazodone HCl 150 Mg Tablet 150 Mg PO HS Fenofibrate (Fenofibrate Nanocrystallized) 145 Mg Tablet 145 Mg PO HS Montelukast Sodium 10 Mg Tablet 10 Mg PO DAILY Assessment/Pt Instructions Patient discharged to inpatient rehabilitation. Discharge Planning: <30 minutes discharge planning Discharge Instructions Discharge Diet: No Restrictions Activity as Tolerated: Yes Discharge Physical Examination Vital Signs Vital Signs Date Time Temp Pulse Resp B/P (MAP) Pulse Ox O2 Delivery O2 Flow Rate FiO2 11/03/19 12:00 Room Air 11/03/19 11:00 36.4 54 18 124/82 97 11/02/19 23:29 21 General Appearance: No Apparent Distress, Obese HEENT: PERRL/EOMI, Pharynx Normal Respiratory: Lungs Clear, Normal Breath Sounds, No Respiratory Distress Cardiovascular: Regular Rate, Rhythm, No Edema, No Murmur Gastrointestinal: Normal Bowel Sounds, Non Tender, Soft Extremity: Normal Inspection, Non Tender, No Pedal Edema Skin: Normal Color, Warm/Dry Neurologic/Psychiatric: Alert, Oriented x3, Normal Mood/Affect, Motor Weakness (Lower extremity proximal muscle weakness 3/5) Allergies: Coded Allergies: diethyltoluamide (Unverified Allergy, Intermediate, RASH, HIVES, RESPIRATORY, 09/14/10) RESCUE INHALER GOT PT TO HOSPITAL, BUT STATES IT WAS LIKE A BAD ASTHMA ATTACK Form.,Urea Cycle Disord (Unverified Allergy, Mild, RASH, 09/14/10) adhesive tape (Unverified Allergy, Mild, RASH, 09/14/10) erythromycin base (Unverified Allergy, Mild, RASH, 09/14/10) tetracycline (Unverified Allergy, Mild, 04/29/14) cefaclor (Verified Allergy, Unknown, 02/28/09) iodine (Verified Allergy, Unknown, 02/28/09) Uncoded Allergies: METAL (Adverse Reaction, Mild, RASH, 09/14/10) Discharge Summary Date of Admission Nov 02, 2019 at 20:35 Date of Discharge Nov 03, 2019 at 11:00 Discharge Date: Nov 03, 2019 Discharge Time: 11:00 Admission Diagnosis Weakness Discharge Diagnosis (1) Proximal muscle weakness Status: Acute Clinical Quality Measures DVT/VTE Risk/Contraindication: Risk Factor Score Per Nursin RFS Level Per Nursing on Admit: 4+=Very High JO VALADEZ MD Nov 03, 2019 14:08
[2019-11-03] MEDS ORDERED: traZODone 150 MG (DESYREL) TABLET PO SCH (21:00)
[2019-11-03] MEDS ORDERED: rOPINIRole 1 MG (REQUIP) TABLET PO SCH (21:00)
[2019-11-03] MEDS ORDERED: DIAZEPAM 5 MG (VALIUM) TABLET PO SCH (21:00)
[2019-11-03] MEDS ORDERED: busPIRone 10 MG (BUSPAR) TAB PO SCH (21:00)
== END 2019-11-03 11:00 ==
LOC: EDUNIT# 17:49 → ER 17:50 → UNDOADMOB 20:35 → 4TH 20:35
PROVIDERS: ADMIT Internal Medicine; ATTEND Internal Medicine
DX: M62.81 Muscle weakness (generalized) (principal); K21.9 Gastro-esophageal reflux disease without esophagitis; E78.5 Hyperlipidemia, unspecified; I10 Essential (primary) hypertension; D50.9 Iron deficiency anemia, unspecified; E03.9 Hypothyroidism, unspecified; J45.909 Unspecified asthma, uncomplicated; M79.7 Fibromyalgia; G61.0 Guillain-Barre syndrome; Z88.8 Allergy status to other drugs, medicaments and biological substances; F17.210 Nicotine dependence, cigarettes, uncomplicated; M06.9 Rheumatoid arthritis, unspecified; Z90.710 Acquired absence of both cervix and uterus; Z79.899 Other long term (current) drug therapy; Z79.891 Long term (current) use of opiate analgesic; Z79.51 Long term (current) use of inhaled steroids
CPT/HCPCS: 70450; 71045; 80053 ×2; 80306; 81000; 82042; 82550; 82945; 83735; 83880; 84157; 84425; 84439; 84443; 84484; 85025 ×2; 85610; 85652; 85730; 86141; 86618; 86666 ×2; 86668; 86757 ×2; 87070; 87205; 89051; 93005; 99284; G0378; 36415

== ENCOUNTER 2019-11-03 09:56 | Inpatient (IN) | payer MEDICARE ==
[~2019-11-03] VITALS: Ht 157.4 cm; Wt 77.2 kg
[2019-11-03] MEDS ORDERED: LEVO-131 PO (10:10)
[2019-11-03] MEDS ORDERED: CHOL20002 PO (10:10)
[2019-11-03] MEDS ORDERED: OMEG-82 PO ×2 (10:10)
[2019-11-03] MEDS ORDERED: AMLO2.5T4 PO (10:10)
[2019-11-03] MEDS ORDERED: CYAN500011 PO (10:10)
[2019-11-03] MEDS ORDERED: MAGN400T39 PO (10:10)
[2019-11-03] MEDS ORDERED: PEG15DRO9 OU (10:10)
[2019-11-03] MEDS ORDERED: ONDANSETRON 4 MG (ZOFRAN) ORAL DISSOLVE TAB PO PRN (10:15)
[2019-11-03] MEDS ORDERED: ALPRAZolam 0.25 MG (XANAX) TAB PO PRN (10:15)
[2019-11-03] MEDS ORDERED: FLEET ENEMA ADULT 1 EA BTL PR PRN (10:15)
[2019-11-03] MEDS ORDERED: LACTULOSE SYRUP 10GM/15ML (ENULOSE) 30ML UDC PO PRN (10:15)
[2019-11-03] MEDS ORDERED: BISACODYL 10 MG SUPP (DULCOLAX) PR PRN (10:15)
[2019-11-03] MEDS ORDERED: CALCIUM CARBONATE 500 MG (TUMS) TAB.CHEW PO PRN (10:15)
[2019-11-03] MEDS ORDERED: MELATONIN 3 MG TABLET PO PRN (10:15)
[2019-11-03] MEDS ORDERED: LOPERAMIDE 2 MG (IMODIUM) TABLET PO PRN (10:15)
[2019-11-03] MEDS ORDERED: diphenhydrAMINE 25 MG TAB (BENADRYL) PO PRN (10:15)
[2019-11-03] MEDS ORDERED: guaiFENesin/CODEINE (ROBITUSSIN AC) 10ML UDC PO PRN (10:15)
[2019-11-03] MEDS ORDERED: DOCUSATE SODIUM 100 MG (COLACE) CAP PO PRN (10:15)
[2019-11-03] MEDS ORDERED: GBPN600T PO (10:44)
[2019-11-03] MEDS ORDERED: NF-METHYLP PO (10:44)
--- NOTE | 2019-11-03 10:45 | NUR ---
MIKABÁRBARA admitted to room 225-1, with an admitting diagnosis of DEBILITY, on 11/03/19 from MEDICAL SURGICAL FLOOR via WHEELCHAIR, accompanied by PT/OT STAFF.BÁRBARA BRENNAN introduced to surroundings, call light, bed controls, phone, TV, temperature control, lights, meal times, smoking policy, visitor policy, side rail policy, bathrooms and showers. Patient Rights given to patient in the handbook.BÁRBARA BRENNAN verbalizes understanding that [facility] is not responsible for the loss or damage to any personal effects or valuables that are kept in the patients posession during their hospitalization. The Patient'S Care Plans were discussed with the PATIENT WELL Discharge Planning. BÁRBARA BRENNAN verbalizes understanding of Interdisciplinary Patient Education. Patient and/or family were informed about the Rapid Response Team and its purpose. Patient received Patient Rights Booklet, which includes Privacy Act Statement and Data Collection Information Summary.
[2019-11-03] MEDS ORDERED: CHOL10002 PO (11:23)
--- NOTE | 2019-11-03 11:55 | PM&R Post Admission Assessment ---
PM&R HP Date of Visit: Nov 03, 2019 Time of Visit: 11:45 History of Present Illness CC: debility with CIDP HPI: This is a 64[address] Merino who has a PMH of CIDP and Guillain Whitakers in 2010 who presents to IRF with flare of CIDP in need of structured PT in order to regain function to return home with of 40 years. Patient uses wheelchair and is able to perform transfers herself and take care of all of her ADL's independently but she has had a increase in weakness and overall decline in the past few weeks getting to the point she reported to the ER in need of assistance due to fall risk and inability to function at home. 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 Patient was admitted to the ARU during this COVID-19 emergency. The ARU is the best and most appropriate post-acute care setting for this patient at this current time. Patient meets IRF admission criteria, however, will be unable to tolerate 3 hours of therapy/5 days per week. This patient's individualized intensive rehabilitation plan is to receive 2 hours of therapy per day, by receiving 1 hour of PT and 1 hour of OT 5 out of 7 days per the patient's week. As an interdisciplinary team, we will discuss this patient's ability to tolerate an increase in the intensity of therapy to be provided throughout the patient's stay. Past Rfaqrry-Jucpdq-Ugiynm Hx Past Med/Social Hx: Reviewed Nursing Past Med/Soc Hx, Reviewed and Corrections made Patient Social History Marrital Status: Employed/Student: unemployed Alcohol Use: Denies Use Smoking Status: Never a Smoker Type Used: Cigarettes 2nd Hand Smoke Exposure: No Recent Hopitalizations: Yes Immunizations Up To Date Date of Pneumonia Vaccine: Jan 24, 2009 Date of Influenza Vaccine: Feb 19, 2010 Seasonal Allergies Seasonal Allergies: No Past Medical History Surgeries: Gallbladder, Hysterectomy, Orthopedic, Tubal Ligation Respiratory: Asthma Cardiac: Hypertension guillain-wolf syndrome Reproductive: No Sexually Transmitted Disease: No Female Reproductive Disorders: Denies Gastrointestinal: Gastroesophageal Reflux, Gall Bladder Disease, Irritable Bowel Musculoskeletal: Arthritis, Fibromyalgia, Rheumatoid Arthritis Endocrine: Hypothyroidsim Loss of Vision: Denies Hearing Impairment: Denies Skin/Integumentary: Eczema History of Blood Disorders: No PM&R Allergy/Meds/Data Review Allergies Coded Allergies: diethyltoluamide (Unverified Allergy, Intermediate, RASH, HIVES, RESPIRATORY, 09/14/10) RESCUE INHALER GOT PT TO HOSPITAL, BUT STATES IT WAS LIKE A BAD ASTHMA ATTACK Form.,Urea Cycle Disord (Unverified Allergy, Mild, RASH, 09/14/10) adhesive tape (Unverified Allergy, Mild, RASH, 09/14/10) erythromycin base (Unverified Allergy, Mild, RASH, 09/14/10) tetracycline (Unverified Allergy, Mild, 04/29/14) cefaclor (Verified Allergy, Unknown, 02/28/09) iodine (Verified Allergy, Unknown, 02/28/09) Uncoded Allergies: METAL (Adverse Reaction, Mild, RASH, 09/14/10) Home Medications Scheduled Amlodipine Besylate (Amlodipine Besylate), 2.5 MG PO DAILY, (Reported) Armodafinil (Armodafinil), 200 MG PO DAILY, (Reported) Bupropion HCl (Bupropion HCl Sr), 150 MG PO BID, (Reported) Buspirone HCl (Buspirone HCl), 10 MG PO BID, (Reported) Cholecalciferol (Vitamin D3) (Vitamin D3), 50 MCG PO DAILY, (Reported) Cyanocobalamin (Vitamin B-12) (Vitamin B-12), 5,000 MCG PO DAILY, (Reported) Fenofibrate Nanocrystallized (Fenofibrate), 145 MG PO HS, (Reported) Fluconazole (Fluconazole), 100 MG PO DAILY, (Reported) Gabapentin (Gabapentin), 600 MG PO BID, (Reported) Levocetirizine Dihydrochloride (Levocetirizine Dihydrochloride), 5 MG PO DAILY, (Reported) Levothyroxine Sodium (Euthyrox), 125 MCG PO DAILY, (Reported) Magnesium Oxide (Magnesium), 400 MG PO DAILY, (Reported) Montelukast Sodium (Montelukast Sodium), 10 MG PO DAILY, (Reported) Westwood-3S/Dha/Epa/Fish Oil/D3 (Fish Oil + D3 Softgel), 2 EACH PO HS, (Reported) Westwood-3S/Dha/Epa/Fish Oil/D3 (Fish Oil + D3 Softgel), 3 EACH PO DAILY, (Reported) Omeprazole (Omeprazole), 20 MG PO DAILY, (Reported) Ropinirole HCl (Ropinirole HCl), 3 MG PO HS, (Reported) Spironolactone (Aldactone), 25 MG PO DAILY, (Reported) Trazodone HCl (Trazodone HCl), 150 MG PO HS, (Reported) Vitamin A (Vitamin A), 8,000 UNIT PO DAILY, (Reported) Scheduled PRN Diazepam (Diazepam), 5-10 MG PO HS PRN for SLEEP, (Reported) Fluticasone Propionate (Fluticasone Propionate), 1 SPRAY NS BID PRN for allergies, (Reported) Ibuprofen (Ibuprofen), 800 MG PO BID PRN for PAIN-MILD, (Reported) Methylprednisolone (Medrol Dose pack), 4-8 MG PO DAILY PRN for INFLAMMATION, (Reported) Peg 400/Hypromellose/Glycerin (Visine Dry Eye Relief Drop), 2 DROPS OU PRN PRN for DRY EYES, (Reported) Tramadol HCl (Tramadol HCl), 50 MG PO BID PRN for PAIN-MODERATE, (Reported) Discontinued Medications Albuterol/Ipratropium (Combivent Respimat Inhal Greenback), 2 PUFF IH DAILY PRN for SHORTNESS OF BREATH, (Reported) Discontinued Reason: No Longer Taking Carvedilol (Carvedilol), 6.25 MG PO BID, (Reported) Discontinued Reason: No Longer Taking Cholecalciferol (Vitamin D3) (D3-2000), 2,000 UNIT PO DAILY, (Reported) Discontinued Reason: Prescription changed Cholecalciferol (Vitamin D3) (Vitamin D3), 50 MCG PO DAILY, (Reported) Discontinued Reason: Prescription changed Cyanocobalamin (Vitamin B-12) (Vitamin B-12), 1,000 MCG PO BID, (Reported) Discontinued Reason: Prescription changed Cyclobenzaprine HCl (Cyclobenzaprine HCl), 10 MG PO DAILY PRN for MUSCLE SPASMS, (Reported) Discontinued Reason: No Longer Taking Gabapentin (Gabapentin), 300 MG PO TID, (Reported) Discontinued Reason: Duplicate Order Lactobacillus Acidophilus/Pect (Acidophilus-Pectin Capsule), 2 EACH PO TIDWM Discontinued Reason: No Longer Taking Levofloxacin (Levaquin), 750 MG PO DAILY Discontinued Reason: No Longer Taking Levothyroxine Sodium (Levothyroxine Sodium), 125 MCG PO DAILY, (Reported) Discontinued Reason: Duplicate Order Liraglutide (Victoza 2-Maycol), 0.6 MG SQ DAILY, (Reported) Discontinued Reason: No Longer Taking Methylprednisolone (Medrol Dose pack), 4 MG PO DAILY PRN for inflammation, (Reported) Discontinued Reason: No Longer Taking Westwood-3 Fatty Acids/Fish Oil (Fish Oil 1,200 mg Softgel), 3 CAP PO DAILY, (Reported) Discontinued Reason: Prescription changed Westwood-3 Fatty Acids/Fish Oil (Fish Oil 1,200 mg Softgel), 2 EACH PO HS, (Reported) Discontinued Reason: Prescription changed [Quinacrine 100], 100 TAB PO DAILY, (Reported) Discontinued Reason: No Longer Taking Current Medications Current Medications Reviewed Review of Systems Constitutional: see HPI, malaise, weakness EENTM: no symptoms reported Respiratory: no symptoms reported Cardiovascular: no symptoms reported Gastrointestinal: no symptoms reported Genitourinary: no symptoms reported Musculoskeletal: back pain Skin: no symptoms reported Psychiatric/Neurological: Anxiety, Depressed, Emotional Problems, Numbness, Paresthesia, Tingling, Weakness All Other Systems Reviewed Negative Unless Noted: Yes Physical Exam Physical Exam Vital Signs Capillary Refill : Height, Weight, BMI Height: 5'2.00" Weight: 174lbs. 0.0oz. [id number]; 31.16 BMI Method:Stated General Appearance: No Apparent Distress, WD/WN, Chronically ill Eyes: Bilateral Eye Normal Inspection, Bilateral Eye PERRL HEENT: PERRL/EOMI, Normal ENT Inspection, Pharynx Normal Neck: Full Range of Motion, Normal Inspection, Non Tender, Supple, Carotid Bruit Respiratory: Chest Non Tender, Lungs Clear, Normal Breath Sounds, No Accessory Muscle Use, No Respiratory Distress Cardiovascular: Regular Rate, Rhythm, No Edema, No Gallop, No JVD, No Murmur, Normal Peripheral Pulses Gastrointestinal: Normal Bowel Sounds, No Organomegaly, No Pulsatile Mass, Non Tender, Soft Back: Normal Inspection, No CVA Tenderness, No Vertebral Tenderness Extremity: Normal Capillary Refill, Normal Inspection, Normal Range of Motion, Non Tender, No Calf Tenderness, No Pedal Edema Neurologic/Psychiatric: Alert, Oriented x3, Depressed Affect, Motor Weakness (all extremities 3/5, difficulty with transfers, pushes own wheelchair very slowly for only a few feet before resting) Skin: Normal Color, Warm/Dry Lymphatic: No Adenopathy PM&R Medical Assessment & Plan REHAB/MEDICAL ASSESSMENT AND PLAN: REHAB IMPAIRMENT GROUP: CIDP flare with decline in function ETIOLOGIC DIAGNOSIS: CIDP flare with decline in function The comorbidities that impact the patients function and/or functional outcome by: severe disability since 2010, chronic pain issues, multiple co-morbidities REHAB PLAN: The patient is being admitted to our comprehensive inpatient rehabilitation facility and can tolerate the intensity of service consisting of at least: 180 minutes of therapy a day, 5 out of 7 days a week Rehab treatment will consist of: PT OT will focus on regaining lost ADL's and overall function in order to return home with . Increasing stamina and decreasing fall risk will be paramount. The patient/family has a good understanding of our discharge process and will benefit from an interdisciplinary inpatient rehabilitation program. The patient has potential to make improvement and is in need of at least two of the following multidisciplinary therapies including but not limited to physical, occupational, speech, and prosthetics and orthotics. Additionally the patient will need services from respiratory, nutritional services, wound care, psychology, etc. (Customize this to each patient). Given the patients complex condition and risk of further medical complications, rehabilitation services cannot be safely or effectively provided at a lower level of care such as a snf facility. BARRIERS TO DISCHARGE: Chronic baseline disability ESTIMATED LOS: 7 days DISPOSITION: Home RELEVANT CHANGES SINCE PREADMISSION SCREENING: I have compared the patients medical and functional status at the time of the preadmission screening and there are: no changes PROGNOSIS: Good REHABILITATION GOALS: 1.PT OT will focus on regaining lost ADL's and overall function in order to return home with . Increasing stamina and decreasing fall risk will be paramount. All the above goals were reviewed with the patient and he/she is in agreement. By signing this document, I acknowledge that I have personally performed a full physical examination on this patient within 24 hours of admission to this [facility] rehabilitation facility and have determined the patient to be able to tolerate the above course of treatment at an intensive level for a reasonable period of time. I will be completing a detailed individualized Plan of Care for this patient by day #4 of the patients stay based upon the Preadmission Screen, the Post-Admission Evaluation, and the therapy evaluations. Admission Dx/Comorbidities: (1) Proximal muscle weakness Status: Acute ICD Codes: M62.81 - Muscle weakness (generalized) (2) History ADIP (3) Essential (primary) hypertension Status: Chronic ICD Codes: I10 - Essential (primary) hypertension (4) Hypothyroidism Status: Chronic ICD Codes: E03.9 - Hypothyroidism, unspecified (5) Physical debility Status: Acute ICD Codes: R53.81 - Other malaise (6) Fatigue Status: Acute ICD Codes: R53.83 - Other fatigue BALDOMERO HANCOCK DO Nov 03, 2019 11:55
[2019-11-03] MEDS ORDERED: FLUTICASONE NASAL SPRAY (FLONASE) 16 GM BTL NS PRN (12:00)
[2019-11-03] MEDS ORDERED: METHYLPREDNISOLONE 4 MG PO PRN (12:00)
[2019-11-03] MEDS ORDERED: HYPROMELLOSE OU PRN (12:00)
[2019-11-03] MEDS ORDERED: [UNRECOGNIZED DRUG - OTHER] OU PRN (12:00)
[2019-11-03] MEDS ORDERED: IBUPROFEN 800 MG (MOTRIN) TAB PO PRN (12:00)
[2019-11-03] MEDS ORDERED: GLYCERIN OU PRN (12:00)
[2019-11-03] MEDS ORDERED: PEG OU PRN (12:00)
[2019-11-03] MEDS ORDERED: DIAZEPAM 5 MG (VALIUM) TABLET PO PRN (12:00)
[2019-11-03 12:01] VITALS: BP 153/89
--- NOTE | 2019-11-03 12:15 | NUR ---
I SPOKE WITH THE PT AND ENTERED THE MED REC WHEN BÁRBARA WAS ON 4TH FLOOR ON 11-03-2019 PLEASE REFER TO THAT NOTE MULTIPLE MEDICATIONS ARE NOT ON THE EXT MED HISTORY
--- NOTE | 2019-11-03 12:41 | Occupational Therapy Eval ---
OT Evaluation-General/PLF Medical Diagnosis Admission Date Nov 03, 2019 at 10:45 Medical Diagnosis: debility Onset Date: Nov 03, 2019 Therapy Diagnosis Therapy Diagnosis: impaired ADLs/functional mobility Height/Weight Height (Feet): 5 Height (Inches): 2.00 Weight (Pounds): 174 Weight (Ounces): 0.0 Precautions Precautions/Isolations: Standard Precautions Weight Bear Status Weight Bearing Restriction: Weight Bearing/Tolerated Location Restriction: LE Bilateral Referral Physician: Devyn Referral Reason: Evaluation/Treatment Medical History Pertinent Medical History: Fractures, HTN Additional Medical History guillian barre, bilateral TKA, HTN, RA, GERD, hyperlipidemia, iron deficiency anemia, fibromyalgia, hypothyroidism adrenal fatigue, asthma, chronic steroid use Current History Pt to ED with complaints of intermittent muscle weakness the last couple months. She was admitted acutely on 11/02/2019, transferring to ARU on 11/03/2019. Reviewed History: Yes Social History Home: Single Level Current Living Status: Spouse Entry Into Home: Ramp ADL-Prior Level of Function SCALE: Activities may be completed with or without assistive devices. 4-Jsebwilfcm-axuafel completes the activity by him/herself with no assistance from a helper. 5-Set-up or Clean-up Assistance-helper sets up or cleans up; patient completes activity. [place] assists only prior to or following the activity. 4-Supervision or Touching Assistance-helper provides verbal cues and/or touc dereck/steadying and/or contact guard assistance as patient completes activity. Assistance may be provided throughout the activity or intermittently. 3-Partial/Moderate Assistance-helper does LESS THAN HALF the effort. [place] lifts, holds or supports trunk or limbs, but provides less than half the effort. 2-Substantial/Maximal Assistance-helper does MORE THAN HALF the effort. [place] lifts or holds trunk or limbs and provides more than half the effort. 2-Ahpcdjlac-figluz does ALL the effort. Patient does none of the effort to complete the activity. Or, the assistance of 2 or more helpers is required for the patient to complete the activity. If activity was not attempted, code reason: 7-Patient Refused. 9-Not Applicable-not attempted and the patient did not perform the activity before the current illness, exacerbation or injury. 10-Not Attempted due to Environmental Limitations-(lack of equipment, weather restraints, etc.). 88-Not Attempted due to Medical Conditions or Safety Concerns. ADL PLOF Comments Pt reports being independent with all ADLs at prior level of function taking rest breaks as needed, she has a walk-in shower, and she has a shower chair she can use if needed. She is independent without AD for functional mobility, she owns a 4WW. Self Care: Independent Functional Cognition: Independent DME/Equipment: Shower OT Current Status Subjective Pt finishing with PT evaluation, agreeable to OT evaluation then OT/PT cotreat due to decreased functional mobility, weakness, decreased coordination and the skill of 2 disciplines required which a rehabilitation services coordinator could not perform. Mental Status/Objective Patient Orientation: Person, Place, Time, Situation Current Glasses/Contacts: Yes Hearing Aids: No Hand Dominance: Right Upper Extremity ROM During UE screen, pt performed BUE shoulder flexion to approx 110 degrees with "shakiness". Later in session, pt reached above overhead with BUE shoulder flexion to approx 150 degrees. She is able to touch the back of her head with her hands. Upper Extremity Coordination slightly decreased due to "shakiness"/tremors with initiation of movements. Pt able to complete thumb opposition to each finger with increased time. Upper Extremity Sensation pt reports intact sensation BUEs, denies tingling/numbness Upper Extremity Strength grossly 3-/5 MMT ADL-Treatment Eating (QC): 5 (set up with containers) Oral Hygiene (QC): 5 (set up/clean up at tray table, pt able to open toothpaste and squeeze onto toothbrush, then brush her teeth.) Shower/Bathe Self (QC): 4 (Sponge bath: pt able to wash all parts seated, with CGA in stance at W for washing/drying periarea and buttocks.) Upper Body Dressing (QC): 5 (set up, pt doffed/donned shirt) Lower Body Dressing (QC): 3 (Pt doffed underwear with CGA in stance at FWW. Pt then able to thread BLEs into underwear/pants, with Min A requiring during pant hike.) On/Off Footwear (QC): 5 (set up, pt able to doff gripper socks, donning socks and tennis shoes.) Toileting Hygiene (QC): 3 (Pt able to manage pants down standing at [facility] with CGA, she completed hygiene, then stood at [facility] for pant hike. Pt required min A with pant hike due to "wearing out") Other Treatments Pt finishing with PT evaluation, agreeable to OT evaluation. OT educated pt on benefits and purpose of OT, she verbalized understanding. Pt then provided information about PLOF and home set up as well as UE screen. OT/PT cotreat due to decreased functional mobility, weakness, decreased coordination and the skill of 2 disciplines required which a rehabilitation services coordinator could not perform. OT focused on UE placement, ADLs, cues for safety/sequencing, while PT focused on LE placement, overall gross movement, and transfers. Pt seated in recliner, brushed her teeth with set up. She then completed sponge bath at recliner level as well as dressing. Pt then transferred to w/c, requesting to use the restroom. Pt positioned in front of grab bars, using GBs to stand and transfer to toilet with CGA. Pt completed toileting, then transferred back to w/c using GBs. In order to increase BUE strength and functional endurance, pt self-propelled w/c into rehab common area, then returned to her room. Pt transferred back to the recliner. Post OT/PT cotreat, pt seated in recliner, call light in reach and all needs met. Education OT Patient Education: Correct positioning, Energy conservation, Progress toward Goal/Update tx plan, Purpose of tx/functional activities, Rehab process, Safety issues, Transfer techniques Teaching Recipient: Patient Teaching Methods: Discussion Response to Teaching: Verbalize Understanding OT Short Term Goals Short Term Goals Time Frame: Nov 17, 2019 Toileting hygiene: 4 Lower body dressin OT Customer Success Advocate Goals Longterm Goals Time Frame: Dec 01, 2019 Eating (QC): 6 Oral Hygiene (QC): 6 Toileting Hygiene (QC): 6 Shower/Bathe Self (QC): 6 Upper Body Dressing (QC): 6 Lower Body Dressing (QC): 6 On/Off Footwear (QC): 6 Additional Goals: 1-Demonstrate ADL Tasks, 2-Verbalize Understanding, 3- ImproveStrength/Joey 1=Demonstrate adherence to instructed precautions during ADL tasks. 2=Patient will verbalize/demonstrate understanding of assistive devices/modifications for ADL. 3=Patient will improve strength/tolerance for activity to enable patient to perform ADL's. OT Education/Plan Problem List/Assessment Assessment: Decreased Activ Tolerance, Decreased UE Strength, Impaired Funct Balance, Impaired I ADL's, Impaired Self-Care Skills Discharge Recommendations Plan/Recommendations: Continue POC Treatment Plan/Plan of Care Patient would benefit from OT for education, treatment and training to promote independence in ADL's, mobility, safety and/or upper extremity function for ADL's. Plan of Care: ADL Retraining, Functional Mobility, Group Exercise/Act as Ind, UE Funct Exercise/Act Treatment Duration: Dec 01, 2019 Frequency: At least 5 of 7 days/Wk (IRF) Estimated Hrs Per Day: Other (Intensity Waiver. 60 mins a day, increasing as pt tolerates.) Rehab Potential: Fair Time/GCodes Start Time: 10:55 Stop Time: 12:00 Total Time Billed (hr/min): 65 Billed Treatment Time 4663-9098 OT eval (10') [id number] OT/PT cotreat (55') 1, EVM (10'), ADL 2 (45'), FA (10') SAMIR SHANE OT Nov 03, 2019 12:41
--- NOTE | 2019-11-03 13:34 | Physical Therapy Evaluation ---
PT Evaluation-General Medical Diagnosis Admission Date Nov 03, 2019 at 10:45 Medical Diagnosis: debility Onset Date: Nov 02, 2019 Therapy Diagnosis Therapy Diagnosis: impaired mobility, strength, endurance, balance Height/Weight Height (Feet): 5 Height (Inches): 2.00 Weight (Pounds): 174 Weight (Ounces): 0.0 Precautions Precautions/Isolations: Standard Precautions Referral Physician: Devyn Reason for Referral: Evaluation/Treatment Medical History Pertinent Medical History: Fractures, HTN Additional Medical History Past Medical History Surgeries: Yes (carpal tunnel, trigger finger, r torn meniscus, plantar fasciotomy, ) Gallbladder, Hysterectomy, Orthopedic, Tubal Ligation Respiratory: Yes Asthma Cardiac: Yes Hypertension Neurological: Yes (guillian barre) Reproductive Disorders: No Female Reproductive Disorders: Denies Sexually Transmitted Disease: No Gastrointestinal: Yes Gastroesophageal Reflux, Gall Bladder Disease, Irritable Bowel Musculoskeletal: Yes (osteo and rheumatoid) Arthritis, Fibromyalgia, Rheumatoid Arthritis Endocrine: Yes (adrenal fatigue, pituitary dysfunction) Hypothyroidsim Loss of Vision: Denies Hearing Impairment: Denies Cancer: No Psychosocial: No Integumentary: Yes Eczema Reviewed History: Yes Social History Home: Single Level Current Living Status: Spouse Entry Into Home: Ramp Prior Prior Level of Function SCALE: Activities may be completed with or without assistive devices. 6-Cucpvtkfnu-qbewtqd completes the activity by him/herself with no assistance from a helper. 5-Set-up or Clean-up Assistance-helper sets up or cleans up; patient completes activity. [place] assists only prior to or following the activity. 4-Supervision or Touching Assistance-helper provides verbal cues and/or touching/steadying and/or contact guard assistance as patient completes activity. Assistance may be provided throughout the activity or intermittently. 3-Partial/Moderate Assistance-helper does LESS THAN HALF the effort. [place] lifts, holds or supports trunk or limbs, but provides less than half the effort. 2-Substantial/Maximal Assistance-helper does MORE THAN HALF the effort. [place] lifts or holds trunk or limbs and provides more than half the effort. 2-Fdoaxjtwf-tsptgh does ALL the effort. Patient does none of the effort to complete the activity. Or, the assistance of 2 or more helpers is required for the patient to complete the activity. If activity was not attempted, code reason: 7-Patient Refused. 9-Not Applicable-not attempted and the patient did not perform the activity before the current illness, exacerbation or injury. 10-Not Attempted due to Environmental Limitations-(lack of equipment, weather restraints, etc.). 88-Not Attempted due to Medical Conditions or Safety Concerns. Bed Mobility: 6 Transfers (B,C,W/C): 6 Gait: 6 Indoor Mobility (Ambulation): Independent PT Evaluation-Current Subjective Patient in bed pre tx, agrees to PT, has no complaints of pain. Will be co- treating with OT after evaluation due to poor patient mobility, strength, endurance, balance, the need to coordinate UE and LE during activity. Pt/Family Goals to be independent at home Objective Patient Orientation: Person, Place, Situation ROM/Strength ROM Lower Extremities WNL Strength Lower Extremities difficult to test due to inconsistent cogwheeling contractions, she seems to be about 3+/5 gross BLE Neuromuscular (Tone, Coordination, Reflexes) Patient states she has had recent changes in vision but has good peripheral vision and tracking, states she just cant see as clear. She also states she has had recent hearing changes too. Patient has no obvious facial asymmetries, no positive babinski but seems to have some abnormal clonus on the left ankle. Sensory Hearing: Functional Hand Dominance: Right Sensation Right Lower Extremit: Intact Sensation Left Lower Extremity: Intact Transfers Roll Left to Right (QC): 6 Sit to Lying (QC): 3 Lying to Sitting/Side of Bed(Q: 3 Sit to Stand (QC): 3 Chair/Xtx-ke-Dqwvl Xfer(QC): 4 Toilet Transfer (QC): 4 Car Transfer (QC): 4 Patient performs bed mobility with independence, supine <-> sit min assist, sit <-> stand min assist, transfers CGA, car transfer CGA. Patient performs a stand pivot transfer very slowly, legs act like they will buckle but don't, patient talks to her legs like she has trouble activating movement. Gait Does the Patient Walk?: No and Walking Goal IS indicated Mode of Locomotion: Both Anticipated Mode of Locomotion: Both Walk 10 feet (QC): 88 Walk 50 ft with 2 Turns(QC): 88 Walk 150 ft (QC): 88 Walking 10ft/uneven surface-QC: 88 Wheelchair Training Does the Pt Use a Wheelchair?: Yes Distance: 50' Wheel 50 ft with 2 turns (QC): 4 Wheel 150 ft (QC): 88 Type of Wheelchair: Manual Patient can propel a manual wheelchair 50' with SBA. Patient propels very slowly, inches at a time, has to stop due to fatigue Stairs 1 Step (curb) (QC): 88 4 Steps (QC): 88 12 Steps (QC): 88 Balance Sitting Static: Normal Sitting Dynamic: Normal Standing Static: Poor Standing Dynamic: Poor Picking up an Object (QC): 88 Treatment bathing and dressing from chair. PT performs bed mobility and transfers, WC mobility, toilet transfer, standing during bathing and dressing. OT performs bathing and dressing, assist with UE during activity for positioning and safety. Assessment/Needs Patient has impaired mobility, strength, endurance, balance. She seems to have almost Parkinson-like symptoms but they are inconsistent. Rehab Potential: Fair PT Short Term Goals Short Term Goals Time Frame: Nov 10, 2019 Roll Left & Right: 6 Sit to lyin Lying to sitting on side of be: 4 Sit to stand: 4 Chair/ins-zn-vcpry transfer: 4 Walk 10 feet: 3 PT Topology Teacher Goals Assisted Goals PT Assisted Goals Time Frame: Nov 24, 2019 Roll Left & Right (QC): 6 Sit to Lying (QC): 6 Lying-Sitting on Side/Bed(QC): 6 Sit to Stand (QC): 5 Chair/Gjw-le-Fnjhf Xfer(QC): 5 Toilet Transfer (QC): 5 Car Transfer (QC): 5 Does the Patient Walk: No and Walking Goal IS indicated Walk 10 feet (QC): 4 Walk 50ft with 2 Turns (QC): 4 Walk 150 ft (QC): 4 Walking 10ft on Uneven Surface: 4 1 Step (curb) (QC): 4 4 Steps (QC): 4 12 Steps (QC): 88 Picking up an Object (QC): 88 Wheel 50 feet with 2 turns (QC: 6 Wheel 150 feet: 6 PT Plan Problem List Problem List: Activity Tolerance, Functional Strength, Safety, Balance, Gait, Transfer, Bed Mobility, ROM Treatment/Plan Treatment Plan: Continue Plan of Care Treatment Plan: Bed Mobility, Education, Functional Activity Joey, Functional Strength, Group Therapy, Gait, Safety, Therapeutic Exercise, Transfers Treatment Duration: Nov 24, 2019 Frequency: Modified Program (IRF) (activity waiver 60 min per day, increase as she can tolerate) Estimated Hrs Per Day: 1 hour per day Patient and/or Family Agrees t: Yes Safety Risks/Education Patient Education: Transfer Techniques, Correct Positioning, W/C Management, Safety Issues Teaching Recipient: Patient Teaching Methods: Demonstration, Discussion Response to Teaching: Reinforcement Needed Discharge Recommendations Plan Patient will perform bed mobility and transfer training, balance and endurance training, functional strengthening, stair training, gait training, and education, to improve functional mobility and independence at home. Therapy Discharge Recommendati: Other, See Comments (NH), Home & Family Time/GCodes Time In: 1045 Time Out: 1200 Total Billed Treatment Time: 65 Total Billed Treatment 1 visit EVM 10' FA 55' (only charge 3 units) PT eval from [id number], OT eval from [id number], co-treat from [id number] LETHA HERNANDEZ PT Nov 03, 2019 13:34
[2019-11-03] MEDS ORDERED: ARTIFICAL TEARS 0.4 ML UNIT DOSE (REFRESH PLUS) OU PRN (14:00)
[2019-11-03] MEDS: oxyCODONE/APAP 5/325MG (PERCOCET 5) TABLET PO PRN (14:39)
--- NOTE | 2019-11-03 15:04 | ST Cognitive Linguistic Eval ---
Speech Evaluation-General Medical Diagnosis debility Onset Date: Nov 02, 2019 Therapy Diagnosis Therapy Diagnosis: Cognitive-communication Referral Referring Physician: Dr. Shepard Medical History Pertinent Medical History: Fractures, HTN Reviewed History: Yes Social History Current Living Status: Spouse Speech PLF-Current Status Prior Level of Function Patient lives at home with her of 40 years. Patient was able to be independent for most of her daily needs prior to becoming so weak. Subjective Patient was pleasant and cooperative with the cognitive assessment. Language Eval: Auditory Comprehends Simple Yes/No Ques: Functional Indent/Objects [place]: Functional Ident/Pics in [place]: Functional Follows 1-Step Commands: Functional Follows Complex Directions: Functional Follows General Conversations: Functional Language Eval: Verbal Language Completes Spontaneous Greeting: Functional Produces Auto, Serial Info: Functional Imitates Simple Words/Phrases: Functional Word Finding: Functional Requests Basic Needs: Functional States Basic Personal Info: Functional Expresses Complex Ideas: Functional Objective Cognitive Domain Attention: WNL Memory: Mild Problem Solving: Functional Executive Functions: WNL Visuospatial Skills: WNL Composite Severity Rating: WNL Clock Drawing Severity Rating: WNL Objective Formal/Standardized Tests [facility] Mental Status ([facility]) Results 28/30, within normal range of function Oral Motor/Speech Production Within Normal Limits Impression Patient is a pleasant 64 y/o female who was admitted to the ARU due to debility. Patient was given the SLUMS with a score of 28/30 obtained. This score is within the normal range of function. Patient does not require further ST services at this time. Speech Patient Assess Expression of Ideas/Wants: Expression (4) Understanding Verbal Content: Understands (4) Brief Interview-Mental Status: Yes Repetition of Three Words: Three (3) Temporal Orientation: Year: Correct (3) Temporal Orientation: Month: Accurate within 5 days(2) Temporal Orientation: Day: Correct (1) Recall : Wear to say "Sock": Yes, no cue required (2) Recall : Color: Yes, no cue required (2) Recall : Bed: Yes,after cueing (1) Memory/Recall Ability: Current season, That he or she is in a hsp/hsp unit Speech-Plan Patient/Family Goals Patient/Family Goals: The patient plans on returning to her home upon hospital discharge. Treatment Plan Speech Therapy Treatment Plan: Discontinue ST Treatment Duration: Nov 03, 2019 Frequency: 1 time per week Estimated Hrs Per Day: .25 hour per day Rehab Potential: Fair Barriers to Learning: None identified Pt/Family Agrees to Plan: Yes Safety Risks/Education Teaching Recipient: Patient Teaching Methods: Discussion Response to Teaching: Verbalize Understanding Education Topics Provided: Safety within her room and utilization of her call light Time Speech Therapy Time In: 15:00 Speech Therapy Time Out: 15:15 Total Billed Time: 15 Billed Treatment Time 1, JOHANNANDCOMP NADEEN Delcid Nov 03, 2019 15:04
[2019-11-03 15:53] VITALS: BP 111/72
[2019-11-03] MEDS: IBUPROFEN 800 MG (MOTRIN) TAB PO PRN (19:35)
[2019-11-03] MEDS ORDERED: FISH OIL PO SCH (21:00)
[2019-11-03] MEDS ORDERED: rOPINIRole 1 MG (REQUIP) TABLET PO SCH (21:00)
[2019-11-03] MEDS ORDERED: CHOLECALCIFEROL 50 MCG PO SCH (21:00)
[2019-11-03] MEDS ORDERED: NON-FORMULARY MEDICATION 1 EA EA (Ropinirole HCl 3 MG) PO SCH (21:00)
[2019-11-03] MEDS ORDERED: FENOFIBRATE 134 MG (LOFIBRA) CAPSULE PO SCH (21:00)
[2019-11-03] MEDS ORDERED: NON-FORMULARY MEDICATION 1 EA EA (Fenofibrate Nanocrystallized (Fenofibrate) 145 MG) PO SCH (21:00)
[2019-11-03] MEDS: busPIRone 10 MG (BUSPAR) TAB PO SCH (21:30)
[2019-11-03] MEDS: traZODone 150 MG (DESYREL) TABLET PO SCH ×2 (21:30→22:46)
[2019-11-03] MEDS: GABAPENTIN 600 MG (NEURONTIN) TAB PO SCH (21:31)
[2019-11-03] MEDS: buPROPion SR 150 MG (WELLBUTRIN SR) TAB PO SCH (21:31)
[2019-11-03] MEDS: SENNA W/DOCUSATE (SENOKOT S) TABLET PO SCH (21:47)
[2019-11-03] MEDS: polyethylene glycoL POWDER 17 GM (MIRALAX) PACK PO SCH (21:47)
[2019-11-04 06:17] LABS: BASOPHILS # (AUTO) 0.1 10^3/uL (0.0-0.1); BASOPHILS % (AUTO) 1 % (0-10); EOSINOPHILS # (AUTO) 0.2 10^3/uL (0.0-0.3); EOSINOPHILS % (AUTO) 2 % (0-10); HEMATOCRIT 40 % (35-52); HEMOGLOBIN 13.1 G/DL (11.5-16.0); LYMPHOCYTES # (AUTO) 2.7 X 10^3 (1.0-4.0); LYMPHOCYTES % (AUTO) 36 % (12-44); MEAN CORPUSCULAR HEMOGLOBIN 27 PG (25-34); MEAN CORPUSCULAR HGB CONC 33 G/DL (32-36); MEAN CORPUSCULAR VOLUME 83 FL (80-99); MEAN PLATELET VOLUME 9.6 FL (7.4-10.4); MONOCYTES # (AUTO) 0.6 X 10^3 (0.0-1.0); MONOCYTES % (AUTO) 8 % (0-12); NEUTROPHILS # (AUTO) 3.9 X 10^3 (1.8-7.8); NEUTROPHILS % (AUTO) 53 % (42-75); PLATELET COUNT 310 10^3/uL (130-400); RED CELL DISTRIBUTION WIDTH 13.7 % (10.0-14.5); WHITE BLOOD COUNT 7.4 10^3/uL (4.3-11.0)
[2019-11-04 06:22] VITALS: BP 116/76
[2019-11-04] MEDS ORDERED: LEVOTHYROXINE 125 MCG (LEVOTHROID) TABLET PO SCH (06:30)
[2019-11-04 06:35] LABS: ALANINE AMINOTRANSFERASE 13 U/L (0-55); ALBUMIN 3.8 GM/DL (3.2-4.5); ALKALINE PHOSPHATASE 42 U/L (40-136); BILIRUBIN,TOTAL 0.3 MG/DL (0.1-1.0); BUN/CREATININE RATIO 19; CALCIUM 9.2 MG/DL (8.5-10.1); CARBON DIOXIDE 25 MMOL/L (21-32); CHLORIDE 106 MMOL/L (98-107); CREATININE SERUM 0.78 MG/DL (0.60-1.30); GFR ESTIMATED > 60; GLUCOSE 95 MG/DL (70-105); POTASSIUM 4.1 MMOL/L (3.6-5.0); SODIUM 141 MMOL/L (135-145); TOTAL PROTEIN 5.8 GM/DL (6.4-8.2)
[2019-11-04] MEDS ORDERED: CYANOCOBALAMIN 1,000 MCG (VITAMIN B-12) TABLET PO SCH (07:00)
[2019-11-04] MEDS ORDERED: MAGNESIUM OXIDE (MAG-OX)400 MG TAB PO SCH (08:00)
[2019-11-04 08:21] VITALS: BP 130/86
--- NOTE | 2019-11-04 08:21 | PM&R Progress Note ---
Subjective HPI/CC On Admission Date Seen by Provider: Nov 04, 2019 Objective Exam Vital Signs Vital Signs Date Time Temp Pulse Resp B/P (MAP) Pulse Ox O2 Delivery O2 Flow Rate FiO2 11/04/19 17:35 36.4 71 18 155/80 97 Room Air Capillary Refill : Less Than 3 Seconds General Appearance: No Apparent Distress, WD/WN, Chronically ill HEENT: PERRL/EOMI, Normal ENT Inspection, Pharynx Normal Neck: Full Range of Motion, Normal Inspection, Non Tender, Supple, Carotid Bruit Respiratory: Chest Non Tender, Lungs Clear, Normal Breath Sounds, No Accessory Muscle Use, No Respiratory Distress Cardiovascular: Regular Rate, Rhythm, No Edema, No Gallop, No JVD, No Murmur, Normal Peripheral Pulses Gastrointestinal: Normal Bowel Sounds, No Organomegaly, No Pulsatile Mass, Non Tender, Soft Back: Normal Inspection, No CVA Tenderness, No Vertebral Tenderness Extremity: Normal Capillary Refill, Normal Inspection, Normal Range of Motion, Non Tender, No Calf Tenderness, No Pedal Edema Neurologic/Psychiatric: Alert, Oriented x3, Depressed Affect, Motor Weakness (all extremities 3/5, difficulty with transfers, pushes own wheelchair very slowly for only a few feet before resting) Skin: Normal Color, Warm/Dry Lymphatic: No Adenopathy Results/Procedures Lab Laboratory Tests 11/04/19 06:02 Patient resulted labs reviewed. FIM Transfers Therapy Code Descriptions/Definitions Functional [place] Measure: 0=Not Assessed/NA 4=Minimal Assistance 1=Total Assistance 5=Supervision or Setup 2=Maximal Assistance 6=Modified [place] 3=Moderate Assistance 7=Complete IndependenceSCALE: Activities may be completed with or without assistive devices. 2-Fkyxswrhfn-lviisay completes the activity by him/herself with no assistance from a helper. 5-Set-up or Clean-up Assistance-helper sets up or cleans up; patient completes activity. [place] assists only prior to or following the activity. 4-Supervision or Touching Assistance-helper provides verbal cues and/or touching/steadying and/or contact guard assistance as patient completes activity. Assistance may be provided throughout the activity or intermittently. 3-Partial/Moderate Assistance-helper does LESS THAN HALF the effort. [place] lifts, holds or supports trunk or limbs, but provides less than half the effort. 2-Substantial/Maximal Assistance-helper does MORE THAN HALF the effort. [place] lifts or holds trunk or limbs and provides more than half the effort. 6-Xeyiktavs-dynfze does ALL the effort. Patient does none of the effort to complete the activity. Or, the assistance of 2 or more helpers is required for the patient to complete the activity. If activity was not attempted, code reason: 7-Patient Refused. 9-Not Applicable-not attempted and the patient did not perform the activity before the current illness, exacerbation or injury. 10-Not Attempted due to Environmental Limitations-(lack of equipment, weather restraints, etc.). 88-Not Attempted due to Medical Conditions or Safety Concerns. Roll Left to Right (QC): 6 Sit to Lying (QC): 3 Sit to Stand (QC): 3 Chair/Xth-jh-Fggjm Xfer(QC): 4 Car Transfer (QC): 4 Gait Training Does the Patient Walk?: No and Walking Goal IS indicated Walk 10 feet (QC): 88 Walk 50 ft with 2 Turns(QC): 88 Walk 150 ft (QC): 88 Walking 10ft/uneven surface-QC: 88 Wheelchair Training Does the Pt Use a Wheelchair?: Yes Distance: 50' Wheel 50 ft with 2 turns (QC): 4 Wheel 150 ft (QC): 88 Type of Wheelchair: Manual Stair Training 1 Step (curb) (QC): 88 4 Steps (QC): 88 12 Steps (QC): 88 Balance Picking up an Object (QC): 88 ADL-Treatment Eating (QC): 5 (set up with containers) Oral Hygiene (QC): 5 (set up/clean up at tray table, pt able to open toothpaste and squeeze onto toothbrush, then brush her teeth.) Shower/Bathe Self (QC): 4 (Sponge bath: pt able to wash all parts seated, with CGA in stance at FWW for washing/drying periarea and buttocks.) Upper Body Dressing (QC): 5 (set up, pt doffed/donned shirt) Lower Body Dressing (QC): 3 (Pt doffed underwear with CGA in stance at FWW. Pt then able to thread BLEs into underwear/pants, with Min A requiring during pant hike.) On/Off Footwear (QC): 5 (set up, pt able to doff gripper socks, donning socks and tennis shoes.) Toileting Hygiene (QC): 3 (Pt able to manage pants down standing at GBs with CGA, she completed hygiene, then stood at GBs for pant hike. Pt required min A with pant hike due to "wearing out") Assessment/Plan Assessment and Plan (1) Proximal muscle weakness Status: Acute (2) History ADIP (3) Essential (primary) hypertension Status: Chronic (4) Hypothyroidism Status: Chronic (5) Physical debility Status: Acute (6) Fatigue Status: Acute BALDOMERO HANCOCK DO Nov 04, 2019 08:21
--- NOTE | 2019-11-04 08:21 | Individualized Plan of Care ---
Individualized Plan of Care Rehab Nursing IPOC Order Admission Date Nov 03, 2019 at 10:45 Current Orders Orders Admission Order(Inpt,Obs,Sdc) (11/03/19 10:10) Vital Signs: Per Unit Policy ( 08,16,00 (11/03/19 10:10) Dylan Forrest 09,21 (11/03/19 10:10) Sequential Compression Device Q4H (11/03/19 10:10) Medical Malpractice Paralegal-Inpt Rehab Con (11/03/19 10:10) Rehab Nursing Orders-Ipoc (11/03/19 10:10) Physical Therapy Rehab Orders (11/03/19 10:10) Occupational Therapy Rehab Ord (11/03/19 10:10) Speech Therapy Rehab Orders (11/03/19 10:10) Cbc With Automated Diff (11/04/19 06:00) Comprehensive Metabolic Panel (11/04/19 06:00) Intake & Output 06,14,22 (11/03/19 10:10) Precautions (Aru) (11/03/19 10:10) Rehab-Intensity Of Therapy (11/03/19 10:10) Initiate Admission Nursing Pro .admission (11/03/19 10:10) Alprazolam Tablet (Xanax Tablet) (11/03/19 10:15) Calcium Carbonate Chew Tablet (Antacid C (11/03/19 10:15) Diphenhydramine Tablet (Benadryl Tablet) (11/03/19 10:15) Docusate Sodium Capsule (Colace Capsule) (11/03/19 10:15) Bisacodyl Suppository (Dulcolax Supposit (11/03/19 10:15) Lactulose Oral Solution (Enulose Oral So (11/03/19 10:15) Na Phos/Na Biphos Enema (Fleet Enema José (11/03/19 10:15) Guaifenesin/Codeine Syrup (Robitussin Ac (11/03/19 10:15) Loperamide Tablet (Imodium Tablet) (11/03/19 10:15) Melatonin Tablet (Melatonin Tablet) (11/03/19 10:15) Polyethylene Glycol Powder Pkt (Miralax (11/03/19 21:00) Ondansetron Oral Dissolve Tab (Zofran (11/03/19 10:15) Senna S Tablet (Senokot S Tablet) (11/03/19 21:00) Oxycodone/Apap 5/325mg Tablet (Percocet (11/03/19 12:00) Ibuprofen Tablet (Motrin Tablet) (11/03/19 12:00) Amlodipine Tablet (Norvasc Tablet) (11/04/19 09:00) Bupropion Sr 12 Hr Tablet (Wellbutrin Sr (11/03/19 21:00) Buspirone Tablet (Buspar Tablet) (11/03/19 21:00) Cholecalciferol Capsule/Tablet (Vitamin (11/04/19 09:00) Diazepam Tablet (Valium Tablet) (11/03/19 12:00) Fluconazole Tablet (Diflucan Tablet) (11/04/19 09:00) Fluticasone Nasal [place] (Flonase Nasal S (11/03/19 12:00) Gabapentin Capsule/Tablet (Neurontin Cap (11/03/19 21:00) Ibuprofen Tablet (Motrin Tablet) (11/03/19 12:00) Levocetirizine (Non-Formulary) (Xyzal (N (11/04/19 09:00) Levothyroxine Tablet (Synthroid Tablet) (11/04/19 06:30) Montelukast Tablet (Singulair Tablet) (11/04/19 09:00) Omeprazole (Non-Formulary) (Prilosec (No (11/04/19 09:00) Spironolactone Tablet (Aldactone Tablet) (11/04/19 09:00) Tramadol Tablet (Ultram Tablet) (11/03/19 12:00) Trazodone Tablet (Desyrel Tablet) (11/03/19 21:00) Patient's Own Med(Rx Use Only) (Patient' (11/04/19 09:00) (Nf) Cyanocobalamin (Vitamin B-12) (Natalia (11/04/19 09:00) (Nf) Fenofibrate Nanocrystallized (Fenof (11/03/19 21:00) (Nf) Magnesium Oxide (Magnesium) (11/04/19 09:00) (Nf) Methylprednisolone (Medrol Dose Pac (11/03/19 12:00) (Nf) [place]-3s/Dha/Epa/Fish Oil/D3 (Fish (11/03/19 21:00) (Nf) [place]-3s/Dha/Epa/Fish Oil/D3 (Fish (11/04/19 09:00) (Nf) Peg 400/Hypromellose/Glycerin (Visi (11/03/19 12:00) (Nf) Ropinirole Hcl (11/03/19 21:00) (Nf) Vitamin A (11/04/19 09:00) Enoxaparin Injection (Lovenox Injection) (11/04/19 12:00) Magnesium Oxide Tablet (Mag Ox Tablet) (11/04/19 08:00) Ropinirole Tablet (Requip Tablet) (11/03/19 21:00) Pantoprazole Tablet (Protonix Tablet) (11/04/19 09:00) Cyanocobalamin Tablet (Vitamin B-12 Tabl (11/04/19 07:00) Loratadine Tablet (Claritin Tablet) (11/04/19 09:00) General/Regular (11/03/19 Lunch) Fenofibrate,Micronized Capsule (Lofibra (11/03/19 21:00) Carboxymethylcell Ophth Soln (Refresh Pl (11/03/19 14:00) Patient Visit (11/03/19 ) Pt Eval Moderate Complexity (11/03/19 ) Functional Activities, Ea 15 (11/03/19 ) Ambulate 08,12,20 (11/03/19 15:06) Sequential Compression Device Q4H (11/03/19 15:06) Dvt/Vte Risk - Notifiy Physici Q4H (11/03/19 15:06) Patient Visit (11/03/19 ) Speech Sound Lang Comp (11/03/19 ) Patient Visit (11/04/19 ) Gait Training, Ea 15 Min (11/04/19 ) Functional Activities, Ea 15 (11/04/19 ) Attending Discharge Inpt/Inobs (11/04/19 16:00) Discharge (11/04/19 16:26) Rehab Nursing Orders: Ongoing Assess. of Function Status Intensity of Therapy to be met Patient to be seen: 15 hrs over 7 cons. days PT IPOC Problem List: Activity Tolerance, Functional Strength, Safety, Balance, Gait, Transfer, Bed Mobility, ROM Bed Mobility, Education, Functional Activity Joey, Functional Strength, Group Therapy, Gait, Safety, Therapeutic Exercise, Transfers Treatment Duration: Nov 24, 2019 Frequency: Modified Program (IRF) (activity waiver 60 min per day, increase as she can tolerate) Estimated Hrs Per Day: 1 hour per day OT IPOC Problems: Decreased Activ Tolerance, Decreased UE Strength, Impaired Funct Balance, Impaired I ADL's, Impaired Self-Care Skills Plan of Care: ADL Retraining, Functional Mobility, Group Exercise/Act as Ind, UE Funct Exercise/Act Treatment Duration: Dec 01, 2019 Frequency: At least 5 of 7 days/Wk (IRF) Estimated Hrs Per Day: Other (Intensity Waiver. 60 mins a day, increasing as pt tolerates.) ST IPOC Speech Therapy Treatment Plan: Discontinue ST Treatment Duration: Nov 03, 2019 Frequency: 1 time per week Estimated Hrs Per Day: .25 hour per day Medical Malpractice Paralegal/Case Mgmt Medical Malpractice Paralegal/Case Managemen: Discharge Planning Dietitian/Agricultural Aircraft Pilot Dietitian/Agricultural Aircraft Pilot to monitor nutritional status and make changes and/or recommendations as needed and work with speech pathology on dietary upgrades as the occur. Physician IPOC Medical Issues being managed closely and that require the 24 hour availability of a physician: Brief Synthesis of Preadmission Screen, Post-Admission Evaluation, and Therapy Evaluations: BALDOMERO HANCOCK DO Nov 04, 2019 08:21
[2019-11-04] MEDS: GABAPENTIN 600 MG (NEURONTIN) TAB PO SCH (08:25)
[2019-11-04] MEDS: busPIRone 10 MG (BUSPAR) TAB PO SCH (08:26)
[2019-11-04] MEDS: SENNA W/DOCUSATE (SENOKOT S) TABLET PO SCH (08:26)
[2019-11-04] MEDS: IBUPROFEN 800 MG (MOTRIN) TAB PO PRN (08:27)
[2019-11-04] MEDS: polyethylene glycoL POWDER 17 GM (MIRALAX) PACK PO SCH (08:28)
[2019-11-04] MEDS: buPROPion SR 150 MG (WELLBUTRIN SR) TAB PO SCH (08:28)
[2019-11-04] MEDS ORDERED: CHOLECALCIFEROL 50 MCG PO SCH (09:00)
[2019-11-04] MEDS ORDERED: NON-FORMULARY MEDICATION 1 EA EA (Magnesium Oxide (Magnesium) 400 MG) PO SCH (09:00)
[2019-11-04] MEDS ORDERED: fluCOnazole (DIFLUCAN) 100 MG TAB PO SCH (09:00)
[2019-11-04] MEDS ORDERED: MONTELUKAST 10 MG (SINGULAIR) TAB PO SCH (09:00)
[2019-11-04] MEDS ORDERED: VITAMIN D3 25 MCG (1,000 UNITS) TABLET PO SCH (09:00)
[2019-11-04] MEDS ORDERED: FISH OIL PO SCH (09:00)
[2019-11-04] MEDS ORDERED: PANTOPRAZOLE 20 MG TABLET (PROTONIX) PO SCH (09:00)
[2019-11-04] MEDS ORDERED: SPIRONOLACTONE 25 MG (ALDACTONE) TAB PO SCH (09:00)
[2019-11-04] MEDS ORDERED: NON-FORMULARY MEDICATION 1 EA EA (Cyanocobalamin (Vitamin B-12) (Vitamin B-12) 5,000 MCG) PO SCH (09:00)
[2019-11-04] MEDS ORDERED: ARMODAFINIL 200 MG PO SCH (09:00)
[2019-11-04] MEDS ORDERED: OMEPRAZOLE 20 MG (PriLOSEC) CAP NON-FORMULARY PO SCH (09:00)
[2019-11-04] MEDS ORDERED: VITAMIN A 2400 MCG PO SCH (09:00)
[2019-11-04] MEDS ORDERED: amLODIPine 2.5MG (NORVASC) TAB PO SCH (09:00)
[2019-11-04] MEDS ORDERED: LORATADINE (CLARITIN) 10 MG TAB PO SCH (09:00)
[2019-11-04] MEDS ORDERED: LEVOCETIRIZINE 5 MG TAB (XYZAL) NON-FORMULARY PO SCH (09:00)
[2019-11-04] MEDS ORDERED: ENOXAPARIN 40 MG/0.4 ML (LOVENOX) SYR SC SCH (12:00)
--- NOTE | 2019-11-04 12:24 | Physical Therapy Daily Note ---
PT Daily Note-Current Subjective Pt agreeable. "I can't walk. My legs simply do not work. They work when they want to. This is from my [place] I think." Pt requests BR privileges. Mental Status Patient Orientation: Person, Place, Situation Transfers SCALE: Activities may be completed with or without assistive devices. 5-Jcclgpcqgy-jokqwdb completes the activity by him/herself with no assistance from a helper. 5-Set-up or Clean-up Assistance-helper sets up or cleans up; patient completes activity. Trevor assists only prior to or following the activity. 4-Supervision or Touching Assistance-helper provides verbal cues and/or touching/steadying and/or contact guard assistance as patient completes activity. Assistance may be provided throughout the activity or intermittently. 3-Partial/Moderate Assistance-helper does LESS THAN HALF the effort. Trevor lifts, holds or supports trunk or limbs, but provides less than half the effort. 2-Substantial/Maximal Assistance-helper does MORE THAN HALF the effort. Trevor lifts or holds trunk or limbs and provides more than half the effort. 8-Mtxiiowyn-xmhilp does ALL the effort. Patient does none of the effort to complete the activity. Or, the assistance of 2 or more helpers is required for the patient to complete the activity. If activity was not attempted, code reason: 7-Patient Refused. 9-Not Applicable-not attempted and the patient did not perform the activity before the current illness, exacerbation or injury. 10-Not Attempted due to Environmental Limitations-(lack of equipment, weather restraints, etc.). 88-Not Attempted due to Medical Conditions or Safety Concerns. Gait Training Gait Assistive Device: Parallel Bars Pt amb 11 steps, full length of //bars with f/u of w/c and CGA. Pt able to complete 8ft, with abnormal gait pattern and involuntary movements of LE's during ambulation. No LOB, CGA only throughout the ambulation training. Treatments Pt transfers chair-w/c and w/c-toilet with CGA. Pt presents with poor brownfield program coordinator rdination and abnormal movements patterns throughout but good strength. Pt able to toilet (I) and doff/eleuterio briefs (I). Assessment Current Status: Fair Progress Pt david well. Pt back to recliner with daughter present. Call light in reach and all needs met. PT Short Term Goals Short Term Goals Time Frame: Nov 10, 2019 Roll Left & Right: 6 Sit to lyin Lying to sitting on side of be: 4 Sit to stand: 4 Chair/hki-et-estwb transfer: 4 Walk 10 feet: 3 PT Master Technician Goals Master Technician Goals PT Master Technician Goals Time Frame: Nov 24, 2019 Roll Left & Right (QC): 6 Sit to Lying (QC): 6 Lying-Sitting on Side/Bed(QC): 6 Sit to Stand (QC): 5 Chair/Wva-pe-Fdyhx Xfer(QC): 5 Toilet Transfer (QC): 5 Car Transfer (QC): 5 Does the Patient Walk: No and Walking Goal IS indicated Walk 10 feet (QC): 4 Walk 50ft with 2 Turns (QC): 4 Walk 150 ft (QC): 4 Walking 10ft on Uneven Surface: 4 1 Step (curb) (QC): 4 4 Steps (QC): 4 12 Steps (QC): 88 Picking up an Object (QC): 88 Wheel 50 feet with 2 turns (QC: 6 Wheel 150 feet: 6 PT Plan Treatment/Plan Treatment Plan: Continue Plan of Care Treatment Plan: Bed Mobility, Education, Functional Activity Joey, Functional Strength, Group Therapy, Gait, Safety, Therapeutic Exercise, Transfers Treatment Duration: Nov 24, 2019 Frequency: Modified Program (IRF) (activity waiver 60 min per day, increase as she can tolerate) Estimated Hrs Per Day: 1 hour per day Patient and/or Family Agrees t: Yes Time/GCodes Time In: 1010 Time Out: 1035 Total Billed Treatment Time: 25 Total Billed Treatment 1, FA x 15', gait x 10' [place] CPTA Nov 04, 2019 12:24
--- NOTE | 2019-11-04 14:31 | NUR ---
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 She has been A&O X4 and reported a slight headache to this nurse this morning which was controlled with Ibuprofen. Radha has some stress incont. noted with bladder and has not had a bowel movement since 10/30. She did take all schedule stool softeners/laxatives this morning. She has participated with therapy and no issues of concern reported to this nurse. Daughter (Emily) came this morning and expressed multiple concerns/medical request that were discussed with this nurse and Dr. Shepard. She reported she believes that patient's Guillain [place] is returning and expressed concern that her mother was completely independent a few days before and now cannot walk. She inquired about a patient transfer to be potential evaluated for IVIG therapy. [facility] was their first choice and Dr. Shepard reached out but was denied due to patient not being follow by neurology. There second choice was [facility] and this nurse started the transfer process with Dr. Shepard's approval. First call with [facility] was contacted at [phone] and all requested information provided. Faxed information sent at [phone] and confirmation of fax paper received. Connor did request that patient have a NIF and forced vital capacity test completed but RT stated to this nurse that they are only able to complete that test here on vented patient. Connor was notified and no concerns voiced. [facility] Manager is aware of potential transfer and the patient/family have been kept up to date with process by this nurse. This nurse will continue to work on potential transfer. Addendum: 11/04/19 at 1731 by FRACISCO MARTINEZ RN Received phone call at [phone]- Patient accepted to under the care of Dr. Goyal (Neurology). She will be going to room # [id number]. Dr. Shepard is aware and has given report to Dr. Goyal. This nurse called report to NAYELI Robison at and no issues reported and all questions answered. DC info was reviewed with Radha and daughter and no issues reported. This nurse faxed DC paperwork to Enriqueta at [facility]. Patient left the floor with this nurse, tech, and daughter at 1705. Home medications returned and in patient belonging bag. 2X person assist to get patient into car safely. Patient left [facility] grounds at 1715.
[2019-11-04] MEDS: oxyCODONE/APAP 5/325MG (PERCOCET 5) TABLET PO PRN (14:47)
--- NOTE | 2019-11-04 16:02 | Discharge Summary ---
Diagnosis/Chief Complaint Date of Admission Nov 03, 2019 at 10:45 Date of Discharge Discharge Date: Nov 04, 2019 Discharge Diagnosis (1) Proximal muscle weakness Status: Acute ICD Codes: M62.81 - Muscle weakness (generalized) (2) History ADIP (3) Essential (primary) hypertension Status: Chronic ICD Codes: I10 - Essential (primary) hypertension (4) Hypothyroidism Status: Chronic ICD Codes: E03.9 - Hypothyroidism, unspecified (5) Physical debility Status: Acute ICD Codes: R53.81 - Other malaise (6) Fatigue Status: Acute ICD Codes: R53.83 - Other fatigue Discharge Summary Discharge Physical Examination Allergies: Coded Allergies: diethyltoluamide (Unverified Allergy, Intermediate, RASH, HIVES, RESPIRATORY, 09/14/10) RESCUE INHALER GOT PT TO HOSPITAL, BUT STATES IT WAS LIKE A BAD ASTHMA ATTACK Form.,Urea Cycle Disord (Unverified Allergy, Mild, RASH, 09/14/10) adhesive tape (Unverified Allergy, Mild, RASH, 09/14/10) erythromycin base (Unverified Allergy, Mild, RASH, 09/14/10) tetracycline (Unverified Allergy, Mild, 04/29/14) cefaclor (Verified Allergy, Unknown, 02/28/09) iodine (Verified Allergy, Unknown, 02/28/09) Uncoded Allergies: METAL (Adverse Reaction, Mild, RASH, 09/14/10) Vitals & I&Os Vital Signs Date Time Temp Pulse Resp B/P (MAP) Pulse Ox O2 Delivery O2 Flow Rate FiO2 11/04/19 17:35 36.4 71 18 155/80 97 Room Air General Appearance: Alert, Oriented X3, Cooperative Respiratory: Clear to Auscultation Cardiovascular: Regular Rate Psych/Mental Status: Mental Status NL Hospital Course Was the Problem List Reviewed?: Yes Patient had a short course after admitted to IRF due to increased weakness and the need for neurological evaluation. 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 Summer also texted the patient and daughter she needed IVIG treatment which she had received in [address] Merino but I could not order that treatment due to no Neurologist recommendation for that treatment so they wanted to transfer to [place] and I spoke to Dr Altamirano who told me without a Neurologist confirmed diagnosis of CDIP and I confirmed she had not seen a Neurologist in 2010 or since her diagnosis so Dr Altamirano recommended sending the patient to [facility] for Neurologist evaluation so she agreed to proceed on with referral which was completed and I updated Connor social service assistant on the case and then Dr Goyal Neurologist called me and I updated him on the case and she was accepted in transfer for Neurology expertise. Labs (last 24 hrs) Laboratory Tests 11/04/19 06:02: White Blood Count 7.4, Red Blood Count 4.81, Hemoglobin 13.1, Hematocrit 40, Mean Corpuscular Volume 83, Mean Corpuscular Hemoglobin 27, Mean Corpuscular Hemoglobin Concent 33, Red Cell Distribution Width 13.7, Platelet Count 310, Mean Platelet Volume 9.6, Neutrophils (%) (Auto) 53, Lymphocytes (%) (Auto) 36, Monocytes (%) (Auto) 8, Eosinophils (%) (Auto) 2, Basophils (%) (Auto) 1, Neutrophils # (Auto) 3.9, Lymphocytes # (Auto) 2.7, Monocytes # (Auto) 0.6, Eosinophils # (Auto) 0.2, Basophils # (Auto) 0.1, Sodium Level 141, Potassium Level 4.1, Chloride Level 106, Carbon Dioxide Level 25, Anion Gap 10, Blood Urea Nitrogen 15, Creatinine 0.78, Estimat Glomerular Filtration Rate > 60, BUN/Creatinine Ratio 19, Glucose Level 95, Calcium Level 9.2, Corrected Calcium 9.4, Total Bilirubin 0.3, Aspartate Amino Transf (AST/SGOT) 12, Alanine Am inotransferase (ALT/SGPT) 13, Alkaline Phosphatase 42, Total Protein 5.8L, Albumin 3.8 Pending Labs Laboratory Tests 11/04/19 06:02: White Blood Count 7.4, Red Blood Count 4.81, Hemoglobin 13.1, Hematocrit 40, Mean Corpuscular Volume 83, Mean Corpuscular Hemoglobin 27, Mean Corpuscular Hemoglobin Concent 33, Red Cell Distribution Width 13.7, Platelet Count 310, Mean Platelet Volume 9.6, Neutrophils (%) (Auto) 53, Lymphocytes (%) (Auto) 36, Monocytes (%) (Auto) 8, Eosinophils (%) (Auto) 2, Basophils (%) (Auto) 1, Neutrophils # (Auto) 3.9, Lymphocytes # (Auto) 2.7, Monocytes # (Auto) 0.6, Eosinophils # (Auto) 0.2, Basophils # (Auto) 0.1, Sodium Level 141, Potassium Level 4.1, Chloride Level 106, Carbon Dioxide Level 25, Anion Gap 10, Blood Urea Nitrogen 15, Creatinine 0.78, Estimat Glomerular Filtration Rate > 60, BUN/Crea tinine Ratio 19, Glucose Level 95, Calcium Level 9.2, Corrected Calcium 9.4, Total Bilirubin 0.3, Aspartate Amino Transf (AST/SGOT) 12, Alanine Aminotransferase (ALT/SGPT) 13, Alkaline Phosphatase 42, Total Protein 5.8, Albumin 3.8 Discharge Home Medications: Active Scripts Active Reported Vitamin D3 (Cholecalciferol (Vitamin D3)) 25 Mcg Tablet 50 Mcg PO DAILY Gabapentin 600 Mg Tablet 600 Mg PO BID LAST FILLED 06-26-2019 #90/45 DAY SUPPLY Medrol Dose pack (Methylprednisolone) 4 Mg Tab 4-8 Mg PO DAILY PRN 6 Days as directed per dose pack Visine Dry Eye Relief Drop (Peg 400/Hypromellose/Glycerin) 15 Ml Drops 2 Drops OU PRN PRN Magnesium (Magnesium Oxide) 400 Mg Tablet 400 Mg PO DAILY Amlodipine Besylate 2.5 Mg Tablet 2.5 Mg PO DAILY Euthyrox (Levothyroxine Sodium) 125 Mcg Tablet 125 Mcg PO DAILY Fish Oil + D3 Softgel ([place]-3S/Dha/Epa/Fish Oil/D3) 1 Each Capsule 3 Each PO DAILY Fish Oil + D3 Softgel ([place]-3S/Dha/Epa/Fish Oil/D3) 1 Each Capsule 2 Each PO HS Vitamin B-12 (Cyanocobalamin (Vitamin B-12)) 5,000 Mcg Capsule 5,000 Mcg PO DAILY Fluticasone Propionate 16 Gm Ariel.susp 1 Ariel NS BID PRN Armodafinil 200 Mg Tablet 200 Mg PO DAILY Fluconazole 100 Mg Tablet 100 Mg PO DAILY Buspirone HCl 10 Mg Tablet 10 Mg PO BID Levocetirizine Dihydrochloride 5 Mg Tablet 5 Mg PO DAILY Vitamin A 8,000 Unit Capsule 8,000 Unit PO DAILY Tramadol HCl 50 Mg Tablet 50 Mg PO BID PRN Aldactone (Spironolactone) 25 Mg Tablet 25 Mg PO DAILY Omeprazole 20 Mg Capsule.dr 20 Mg PO DAILY Diazepam 5 Mg Tablet 5-10 Mg PO HS PRN Ibuprofen 800 Mg Tablet 800 Mg PO BID PRN Bupropion HCl Sr (Bupropion HCl) 150 Mg Tablet.er 150 Mg PO BID Ropinirole HCl 3 Mg Tablet 3 Mg PO HS Trazodone HCl 150 Mg Tablet 150 Mg PO HS Fenofibrate (Fenofibrate Nanocrystallized) 145 Mg Tablet 145 Mg PO HS Montelukast Sodium 10 Mg Tablet 10 Mg PO DAILY Instructions to patient/family Please see electronic discharge instructions given to patient. Diagnosis/Problems Diagnosis/Problems (1) Proximal muscle weakness Status: Acute (2) History ADIP (3) Essential (primary) hypertension Status: Chronic (4) Hypothyroidism Status: Chronic (5) Physical debility Status: Acute (6) Fatigue Status: Acute Clinical Quality Measures DVT/VTE Risk/Contraindication: Risk Factor Score Per Nursin RFS Level Per Nursing on Admit: 4+=Very High BALDOMERO HANCOCK DO Nov 04, 2019 16:02
[2019-11-04 17:35] VITALS: BP 155/80
--- NOTE | 2019-11-06 09:21 | Therapy Team Discharge Summary ---
Therapy Discharge Summary Discharge Recommendations Date of Discharge Nov 04, 2019 at 17:15 Physical Therapy This patient admitted to ARU post brief acute stay with debility and decreased functional mobility. Prior to her decline, she was indep/mod indep in her home. She reports she had been experiencing a decline over the past few days prior to presenting to the hospital. Upon admission, she was generally min assist with transfers but was unable to walk; she was able to propel the wc short distances with light assist. Pt was admitted on 11/03/2019 and discharged on 11/04/2019, thus no goals met with no functional change at that time. Pt tranferred to an outside facility. Will DC at this time. Occupational Therapy Decreased Activ Tolerance, Decreased UE Strength, Impaired Funct Balance, Impair ed I ADL's, Impaired Self-Care Skills PT Manager Of Regulatory Affairs Goals Jail Goals PT Jail Goals Time Frame: Nov 24, 2019 Roll Left to Right (QC): 6 Sit to Lying (QC): 6 Lying-Sitting on Side/Bed(QC): 6 Sit to Stand (QC): 5 Chair/Frw-yc-Lhrmu Xfer(QC): 5 Car Transfer (QC): 5 Does the Patient Walk: No and Walking Goal IS indicated Walk 10 feet (QC): 4 Walk 10ft-Uneven Surface(QC): 4 Walk 50ft with 2 Turns (QC): 4 Walk 150 ft (QC): 4 Wheel 50 feet with 2 turns (QC: 6 1 Step (curb) (QC): 4 4 Steps (QC): 4 12 Steps (QC): 88 Picking up an Object (QC): 88 no goals met due to short stay OT Jail Goals Jail Goals Time Frame: Dec 01, 2019 Eating (QC): 6 Oral Hygiene (QC): 6 Shower/Bathe Self (QC): 6 Upper Body Dressing (QC): 6 Lower Body Dressing (QC): 6 On/Off Footwear (QC): 6 Toileting Hygiene (QC): 6 Toilet/Commode Transfer (QC): 5 Additional Goals: 1-Demonstrate ADL Tasks, 2-Verbalize Understanding, 3- ImproveStrength/Joey 1=Demonstrate adherence to instructed precautions during ADL tasks. 2=Patient will verbalize/demonstrate understanding of assistive devices/modifications for ADL. 3=Patient will improve strength/tolerance for activity to enable patient to perform ADL's. BREN BECKMAN PT Nov 06, 2019 09:21
--- NOTE | 2019-11-07 11:29 | Therapy Team Discharge Summary ---
Therapy Discharge Summary Discharge Recommendations Date of Discharge Nov 04, 2019 at 17:15 Occupational Therapy This patient admitted to ARU post brief acute stay with debility and decreased functional mobility. At OF, pt was independent with all ADLs and functional mobility without AD. At admission, pt required set up with eating and oral hygiene, CGA during sponge bath, set up upper body dressing, min A lower body dressing, set up footwear, and min A toilet hygiene. Pt admitted on 11/03/2019 and discharged 11/04/2019 prior to follow up txs. Pt did not meet any goals and did not have any functional changes due to transferring to an outside facility prior to follow up sessions. Pt discharged from facility, thus d/c from OT at this time. Decreased Activ Tolerance, Decreased UE Strength, Impaired Funct Balance, Impaired I ADL's, Impaired Self-Care Skills PT Entry Level Sales Consultant Goals Entry Level Sales Consultant Goals PT Entry Level Sales Consultant Goals Time Frame: Nov 24, 2019 Roll Left to Right (QC): 6 Sit to Lying (QC): 6 Lying-Sitting on Side/Bed(QC): 6 Sit to Stand (QC): 5 Chair/Gwa-sa-Vrkyh Xfer(QC): 5 Car Transfer (QC): 5 Does the Patient Walk: No and Walking Goal IS indicated Walk 10 feet (QC): 4 Walk 10ft-Uneven Surface(QC): 4 Walk 50ft with 2 Turns (QC): 4 Walk 150 ft (QC): 4 Wheel 50 feet with 2 turns (QC: 6 1 Step (curb) (QC): 4 4 Steps (QC): 4 12 Steps (QC): 88 Picking up an Object (QC): 88 OT Entry Level Sales Consultant Goals Entry Level Sales Consultant Goals Time Frame: Dec 01, 2019 Eating (QC): 6 (not met) Oral Hygiene (QC): 6 (not met) Shower/Bathe Self (QC): 6 (not met) Upper Body Dressing (QC): 6 (not met) Lower Body Dressing (QC): 6 (not met) On/Off Footwear (QC): 6 (not met) Toileting Hygiene (QC): 6 (not met) Toilet/Commode Transfer (QC): 5 (not met) Additional Goals: 1-Demonstrate ADL Tasks, 2-Verbalize Understanding, 3- ImproveStrength/Joey 1=Demonstrate adherence to instructed precautions during ADL tasks. 2=Patient will verbalize/demonstrate understanding of assistive devices/modifications for ADL. 3=Patient will improve strength/tolerance for activity to enable patient to perform ADL's. SAMIR SHANE OT Nov 07, 2019 11:29
== END 2019-11-04 17:15 | disposition short-term general hospital (02) | DRG 556 ==
PROVIDERS: ADMIT Internal Medicine; ATTEND Internal Medicine
DX: M62.81 Muscle weakness (generalized) (principal); G65.0 Sequelae of Guillain-Barre syndrome; F41.9 Anxiety disorder, unspecified; F32.9 Major depressive disorder, single episode, unspecified; J45.909 Unspecified asthma, uncomplicated; I10 Essential (primary) hypertension; K21.9 Gastro-esophageal reflux disease without esophagitis; M19.91 Primary osteoarthritis, unspecified site; M79.7 Fibromyalgia; M06.9 Rheumatoid arthritis, unspecified; E03.9 Hypothyroidism, unspecified; Z90.710 Acquired absence of both cervix and uterus
CPT/HCPCS: 36415; 80053; 85025